=== PATIENT | female | born 1950 | race Caucasian/White ===

== ENCOUNTER 2018-08-15 16:32 | Emergency (ER) | payer MEDICAID, MEDICARE ==
[2018-08-15 17:25] LABS: BILIRUBIN,URINE NEGATIVE (NEGATIVE); GLUCOSE, URINE (UA) NEGATIVE (NEGATIVE); KETONES,URINE (UA) TRACE mg/dL (NEGATIVE); LEUKOCYTE ESTERASE, URINE LARGE (NEGATIVE); NITRITE,URINE POSITIVE (NEGATIVE); OCCULT BLOOD,URINE MODERATE (NEGATIVE); PH,URINE 6.5 PH (5.0-7.5); PROTEIN,URINE 100 mg/dL (NEGATIVE); UROBILINOGEN,URINE 0.2 (NORMAL) E.U./dL (NORMAL)
[2018-08-15 17:46] LABS: BACTERIA,URINE Few /HPF (None Seen); CLARITY,URINE SL. CLOUDY (CLEAR); RBC,URINE 0-5 /HPF (0-5); SQUAMOUS EPITHELIAL CELL,UR RARE Squamous (<= Few)
[2018-08-15] MEDS ORDERED: cefTRIAXone 1 GM VIAL IVP STA (20:18)
[2018-08-15] MEDS ORDERED: SODIUM CHLORIDE 0.9% 1,000 ML IV ONE (20:18)
[2018-08-15] MEDS ORDERED: FLUCONAZOLE 100 MG TABLET PO STA (20:19)
--- NOTE | 2018-08-15 20:22 | ED Physician Documentation ---
History of Present Illness - Stated complaint Stated Complaint: FEM - Chief complaint Chief Complaint: UTI - History obtained from History obtained from: Patient - History of Present Illness Timing: How many weeks ago (several) Pain level max: 4 Pain level now: 3 Improved by: nothing Worsened by: nothing - Additonal information Additional information: Patient is a 68-year-old female who presents to the emergency department complaining of generalized feelings of unwell the last few days. Feels tired and weak. States for the last several weeks has had a rash to the outer aspect of her thighs and genitalia. States that this is itchy. Had used nystatin cream in the past but ran out. She also feels like she has a UTI. States she has felt feverish, but no measured fever. Has had nausea but no vomiting. No diarrhea. No constipation. No back pain. Review of Systems Nose: denies: Rhinorrhea / runny nose, Congestion Cardiac: denies: Chest pain / pressure Respiratory: denies: Cough GI: reports: Nausea. denies: Abdominal Pain, Vomiting, Diarrhea : reports: Dysuria, Frequency, Hesitancy. denies: Now EGA Skin: denies: Rash Musculoskeletal: denies: Neck pain, Back pain PD PAST MEDICAL HISTORY - Past Medical History Past Medical History: Yes Cardiovascular: None Respiratory: Other Neuro: None Endocrine/Autoimmune: None GI: GERD, Colon polyps : Kidney stones HEENT: Other Psych: Depression, Anxiety Musculoskeletal: Osteoarthritis Derm: None - Past Surgical History General: Colonoscopy, EGD Ortho: Spine surgery - Present Medications Home Medications: Ambulatory Orders Medication Instructions Recorded Confirmed Omeprazole 20 mg PO DAILY 05/27/15 05/30/15 Vitamin B Complex Vit C No.4 150 mg PO DAILY 05/27/15 05/30/15 [Super B Complex] raNITIdine [Zantac] 150 mg PO BID 05/27/15 05/30/15 Cephalexin [Keflex] 500 mg PO Q6H #28 capsule 08/15/18 FLUoxetine [PROzac] 10 mg PO DAILY 08/15/18 08/15/18 Fluconazole [Diflucan] 150 mg PO Q72H #3 tablet 08/15/18 Nystatin Cream [Mycostatin Cream] 1 applic TOP BID PRN #1 tube 08/15/18 - Allergies Allergies/Adverse Reactions: Allergies Allergy/AdvReac Type Severity Reaction Status Date / Time No Known Drug Allergies Allergy Verified 08/15/18 16:41 - Social History Does the pt smoke?: No Smoking Status: Never smoker Does the pt drink ETOH?: Yes Does the pt have substance abuse?: No - Immunizations Immunizations are current?: Yes - POLST Patient has POLST: No PD ED PE NORMAL - Vitals Vital signs reviewed: Yes - General General: Alert and oriented X 3, No acute distress, Well developed/nourished - HEENT HEENT: Moist mucous membranes - Neck Neck: Supple, no meningeal sign - Cardiac Cardiac: RRR, Strong equal pulses - Respiratory Respiratory: No respiratory distress, Clear bilaterally - Abdomen Abdomen: Soft, Non tender, Non distended - Female Female : Box Toe Cutter present [email or web address]), Other (diffuse erythematous broken down skin over inguinal folds and perineum. ) - Back Back: No CVA TTP, No spinal TTP - Derm Derm: Warm and dry - Neuro Neuro: Alert and oriented X 3 Results - Vitals Vitals: Vital Signs - 24 hr 08/15/18 08/15/18 08/15/18 16:39 20:00 21:33 Temperature 36 C L 37 C Heart Rate 97 86 81 Respiratory 20 20 16 Rate Blood Pressure 174/139 H 130/74 127/69 O2 Saturation 95 98 99 Oxygen O2 Source [With Activity] Room air O2 Source [Without Activity] Room air O2 Source Room air - Labs Labs: Laboratory Tests 08/15/18 17:15 Urine Color YELLOW Urine Clarity SL. CLOUDY Urine pH 6.5 Ur Specific [place] 1.020 Urine Protein 100 H Urine Glucose (UA) NEGATIVE Urine Ketones TRACE Urine Occult Blood MODERATE H Urine Nitrite POSITIVE H Urine Bilirubin NEGATIVE Urine Urobilinogen 0.2 (NORMAL) Ur Leukocyte Esterase LARGE H Urine RBC 0-5 Urine WBC >25 H Ur Squamous Epith Cells RARE Squamous Urine Bacteria Few Ur Microscopic Review INDICATED Urine Culture Comments INDICATED PD MEDICAL DECISION MAKING - ED course Complexity details: reviewed results, re-evaluated patient, considered differential, d/w patient ED course: Patient is a 68-year-old female who presents to the emergency department with a severe candidal infection of her perineal area. Will place on Diflucan 150 mg by mouth every 3 days. She also appears to have UTI. Was given Rocephin and will place on Keflex. Will also place her on topical nystatin. She is not septic. Feels better after IV fluids and is tolerating p.o. without difficulty. No fevers. Patient counseled regarding signs and symptoms for which I believe and urgent re-evaluation would be necessary. Patient with good understanding of and agreement to plan and is comfortable going home at this time This document was made in part using voice recognition software. While efforts are made to proofread this document, sound alike and grammatical errors may occur. - Sepsis Event Vital Signs: Vital Signs - 24 hr 08/15/18 08/15/18 08/15/18 16:39 20:00 21:33 Temperature 36 C L 37 C Heart Rate 97 86 81 Respiratory 20 20 16 Rate Blood Pressure 174/139 H 130/74 127/69 O2 Saturation 95 98 99 Oxygen O2 Source [With Activity] Room air O2 Source [Without Activity] Room air O2 Source Room air Departure - Departure Disposition: 01 Home, Self Care Clinical Impression: Candidiasis UTI (urinary tract infection) Qualifiers: Urinary tract infection type: acute cystitis Hematuria presence: without hematuria Qualified Code(s): N30.00 - Acute cystitis without hematuria Instructions: ED Candidiasis Cutaneous, ED UTI Cystitis Female Follow-Up: your,doctor in 1 week [Other] Prescriptions: Cephalexin [Keflex] 500 mg PO Q6H #28 capsule Fluconazole [Diflucan] 150 mg PO Q72H #3 tablet Nystatin Cream [Mycostatin Cream] 1 applic TOP BID PRN #1 tube PRN Reason: rash Comments: Take all antibiotics until gone. Return if you worsen. This should improve with the oral medications in addition to the cream. Follow-up with your doctor for further care. Discharge Date/Time: 08/15/18 21:38
[2018-08-15 21:34] VITALS: BP 127/69
== END 2018-08-15 21:38 | disposition home or self-care (01) ==
LOC: ED 16:32
DX: B37.89 Other sites of candidiasis (principal); N30.00 Acute cystitis without hematuria
CPT/HCPCS: 81001; 87077; 87086; 87181; 96361; 96374; 99283; A9270; 81003

== ENCOUNTER 2018-08-18 06:22 | Inpatient (IN) | payer MEDICAID, MEDICARE ==
[2018-08-18] MEDS ORDERED: SODIUM CHLORIDE 0.9% 1,000 ML IV STA (06:50)
[2018-08-18 07:04] LABS: BASOPHILS % (AUTO) 0.1 %; EOSINOPHILS # (AUTO) 0.1 10^3/uL (0.0-0.7); EOSINOPHILS % (AUTO) 0.5 %; HGB - HEMOGLOBIN 11.9 g/dL (12.0-16.0); LYMPHOCYTES % (AUTO) 9.2 %; MEAN CORPUSCULAR HEMOGLOBIN 25.7 pg (27.0-31.0); MEAN CORPUSCULAR HGB CONC 32.9 g/dL (32.0-36.0); MEAN CORPUSCULAR VOLUME 78.2 fL (81.0-99.0); MEAN PLATELET VOLUME 6.5 fL (7.9-10.8); MONOCYTES # (AUTO) 0.9 10^3/uL (0.0-1.0); MONOCYTES % (AUTO) 8.2 %; NEUTROPHILS # (AUTO) 8.6 10^3/uL (1.5-6.6); PLT - PLATELET COUNT 518 10^3/uL (130-450); RED BLOOD COUNT 4.64 10^6/uL (4.20-5.40); RED CELL DISTRIBUTION WIDTH 18.4 % (12.0-15.0); WHITE BLOOD COUNT 10.5 x10^3/uL (4.8-10.8)
[2018-08-18] MEDS ORDERED: SODIUM CHLORIDE 0.9% 1,200 ML IV ONE (07:09)
[2018-08-18] MEDS ORDERED: ERTAPENEM 1 GM in SODIUM CHLORIDE 0.9% MINIBAG 100 ML IV STA (07:10)
--- NOTE | 2018-08-18 07:20 | ED Physician Documentation ---
History of Present Illness - Stated complaint Stated Complaint: WEAKNESS - Chief complaint Chief Complaint: Neuro - Additonal information Additional information: hx from pt and EMR 68 f fairly healthy takes H2B PPI SSRI seen 2 days ago for UTI and yeast dermatitis and weakness SBP was 179 txed with keflex and topical antifungal has worsened extreme weakness leg gave out and she fell (s injury) needed lift assist to get out of car upon arrival to ER SBP 90 on arrival denies fever chills no [place] one epsiode of diarrhea upon arrival in ED - no blood and [place] CP abd or back pain Review of Systems Constitutional: reports: Fatigue. denies: Fever, Chills Cardiac: denies: Chest pain / pressure Respiratory: denies: Dyspnea, Cough GI: reports: Diarrhea. denies: Abdominal Pain, Nausea, Vomiting, Bloody / black stool : reports: Dysuria Skin: reports: Rash Musculoskeletal: denies: Neck pain, Back pain Neurologic: reports: Generalized weakness. denies: Head injury Endocrine: denies: Easy bruising / bleeding Immunocompromised: denies: Immunocompromised PD PAST MEDICAL HISTORY - Past Medical History Past Medical History: Yes Cardiovascular: None Respiratory: Other Neuro: None Endocrine/Autoimmune: None GI: GERD, Colon polyps : Kidney stones HEENT: Other Psych: Depression, Anxiety Musculoskeletal: Osteoarthritis Derm: None - Past Surgical History Past Surgical History: Yes General: Colonoscopy, EGD Ortho: Spine surgery - Present Medications Home Medications: Ambulatory Orders Medication Instructions Recorded Confirmed Omeprazole 20 mg PO DAILY 05/27/15 05/30/15 Vitamin B Complex Vit C No.4 150 mg PO DAILY 05/27/15 05/30/15 [Super B Complex] raNITIdine [Zantac] 150 mg PO BID 05/27/15 05/30/15 Cephalexin [Keflex] 500 mg PO Q6H #28 capsule 08/15/18 FLUoxetine [PROzac] 10 mg PO DAILY 08/15/18 08/15/18 Fluconazole [Diflucan] 150 mg PO Q72H #3 tablet 08/15/18 Nystatin Cream [Mycostatin Cream] 1 applic TOP BID PRN #1 tube 08/15/18 - Allergies Allergies/Adverse Reactions: Allergies Allergy/AdvReac Type Severity Reaction Status Date / Time No Known Drug Allergies Allergy Verified 08/15/18 16:41 - Social History Does the pt smoke?: No Smoking Status: Never smoker Does the pt drink ETOH?: Yes Does the pt have substance abuse?: No - Immunizations Immunizations are current?: Yes - POLST Patient has POLST: No PD ED PE NORMAL - Vitals Vital signs reviewed: Yes - General General: Alert and oriented X 3 - HEENT HEENT: PERRL - Neck Neck: Supple, no meningeal sign - Cardiac Cardiac: RRR - Respiratory Respiratory: No respiratory distress - Abdomen Abdomen: Soft, Non tender - Derm Derm: Other (severe beefy erytehmatous rash with sattelitle lesions c/w yeast derm to labia and lower abd, flafy skin c/w tinea to feet) - Extremities Extremities: No edema - 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 Results - Vitals Vitals: Vital Signs - 24 hr 08/18/18 06:25 Temperature 36.6 C Heart Rate 96 Respiratory 17 Rate Blood Pressure 90/65 O2 Saturation 100 Oxygen O2 Source [With Activity] Room air O2 Source [Without Activity] Room air O2 Source Room air - Labs Labs: Laboratory Tests 08/18/18 08/18/18 08/18/18 06:57 06:57 06:57 WBC 10.5 RBC 4.64 Hgb 11.9 L Hct 36.3 L MCV 78.2 L MCH 25.7 L MCHC 32.9 RDW 18.4 H Plt Count 518 H MPV 6.5 L Neut # (Auto) 8.6 H Lymph # (Auto) 1.0 L [place] # (Auto) 0.9 Eos # (Auto) 0.1 Baso # (Auto) 0.0 Absolute Nucleated RBC 0.01 Nucleated RBC % 0.1 Sodium 132 L Potassium 1.7 L* Chloride 104 Carbon Dioxide 17 L Anion Gap 11.0 BUN 23 H Creatinine 1.5 H Estimated GFR (MDRD) 35 L Glucose 136 H Lactic Acid 1.4 Calcium 10.5 H Total Bilirubin 0.6 AST 20 ALT 23 Alkaline Phosphatase 74 Total Protein 6.6 L Albumin 3.1 L Globulin 3.5 Albumin/Globulin Ratio 0.9 L Lipase 136 H PD MEDICAL DECISION MAKING - ED course ED course: checked urine cx - klebsiella - should be sens to keflex prescribed but pt is sig worse, BP was 179 ast visit and 90 this vist, weak and falling, lives alone initiated sepsis tx - 30 cc/kg NS and invanv based on sensitivities will admit - Sepsis Event Vital Signs: Vital Signs - 24 hr 08/18/18 06:25 Temperature 36.6 C Heart Rate 96 Respiratory 17 Rate Blood Pressure 90/65 O2 Saturation 100 Oxygen O2 Source [With Activity] Room air O2 Source [Without Activity] Room air O2 Source Room air Departure - Departure Disposition: 67 [facility] DC/Xfer Clinical Impression: Hypokalemia, Renal insufficiency, Hypercalcemia Sepsis Qualifiers: Sepsis type: sepsis due to unspecified organism Qualified Code(s): A41.9 - Sepsis, unspecified organism UTI (urinary tract infection) Qualifiers: Urinary tract infection type: site unspecified Hematuria presence: without hematuria Qualified Code(s): N39.0 - Urinary tract infection, site not specified Hypotension Qualifiers: Hypotension type: unspecified hypotension type Qualified Code(s): I95.9 - Hypotension, unspecified Fall Qualifiers: Encounter type: initial encounter Qualified Code(s): W19.XXXA - Unspecified fall, initial encounter
[2018-08-18 07:24] LABS: ALBUMIN 3.1 g/dL (3.2-5.5); ALBUMIN/GLOBULIN RATIO 0.9 (1.0-2.2); BILIRUBIN,TOTAL 0.6 mg/dL (0.2-1.0); CALCIUM 10.5 mg/dL (8.5-10.3); CREATININE 1.5 mg/dL (0.4-1.0); TOTAL PROTEIN 6.6 g/dL (6.7-8.2)
[2018-08-18] MEDS ORDERED: POTASSIUM CHLOR 10 MEQ/100 ML 10 MEQ/100 ML BAG IV STA (07:25)
[2018-08-18] MEDS ORDERED: POTASSIUM CHLORIDE 20 MEQ TABLET PO STA (07:25)
[2018-08-18] MEDS ORDERED: CLOTRIMAZOLE 1% CREAM 15 GM TUBE TOP STA (07:29)
[2018-08-18 08:01] LABS: BILIRUBIN,URINE NEGATIVE (NEGATIVE); GLUCOSE, URINE (UA) NEGATIVE (NEGATIVE); KETONES,URINE (UA) NEGATIVE (NEGATIVE); LEUKOCYTE ESTERASE, URINE NEGATIVE (NEGATIVE); NITRITE,URINE NEGATIVE (NEGATIVE); OCCULT BLOOD,URINE SMALL (NEGATIVE); PH,URINE 6.5 PH (5.0-7.5); PROTEIN,URINE 30 mg/dL (NEGATIVE); UROBILINOGEN,URINE 0.2 (NORMAL) E.U./dL (NORMAL)
[2018-08-18 08:13] LABS: CLARITY,URINE CLEAR (CLEAR)
[2018-08-18 08:15] LABS: BACTERIA,URINE Rare /HPF (None Seen); RBC,URINE 0-5 /HPF (0-5); SQUAMOUS EPITHELIAL CELL,UR NONE SEEN (<= Few); WBC CLUMPS,URINE PRESENT
[2018-08-18 09:50] LABS: INR 1.2 (0.8-1.2); PT - PROTHROMBIN TIME 13.8 secs (9.9-12.6)
[2018-08-18] MEDS ORDERED: FLUoxetine 10 MG CAPSULE PO SCH (10:00)
[2018-08-18 10:24] LABS: TROPONIN I < 0.04 ng/mL (<0.49)
[2018-08-18 10:26] LABS: CREATINE KINASE MB 6.8 ng/mL (0.6-6.3)
[2018-08-18] MEDS ORDERED: SODIUM CHLORIDE FLUSH 0.9% 10 ML SYRINGE ONE (11:39)
[2018-08-18] MEDS: NS W/20 MEQ KCL 1,000 ML IV SCH ×3 (11:43→21:44)
[2018-08-18] MEDS: PANTOPRAZOLE 40 MG TABLET PO SCH (11:59)
[2018-08-18] MEDS: NYSTATIN POWDER 15 GM TOP SCH ×2 (12:00→20:49)
[2018-08-18] MEDS: POTASSIUM CHLOR 10 MEQ/100 ML 10 MEQ/100 ML BAG IV SCH ×3 (12:28→14:41)
[2018-08-18] MEDS: SODIUM CHLORIDE FLUSH 0.9% 10 ML SYRINGE IVP SCH (16:49)
[2018-08-18] MEDS: POTASSIUM CHLORIDE 20 MEQ TABLET PO SCH ×3 (17:13→22:56)
[2018-08-18] MEDS: LOPERAMIDE 2 MG CAPSULE PO PRN (18:46)
[2018-08-18] MEDS: SACCHAROMYCES BOULARDII 250 MG CAPSULE PO SCH (20:31)
[2018-08-18] MEDS: FLUoxetine 10 MG CAPSULE PO SCH (20:31)
--- NOTE | 2018-08-19 00:10 | HISTORY & PHYSICAL EXAMINATION ---
DATE OF SERVICE: 08/18/2018 Physician: Ivone Barron MD HISTORY OF PRESENT ILLNESS: This is a 68-year-old white female with a history of osteoarthritis, GERD, depression and anxiety, history of kidney stones, history of colonic polyps. Approximately 10 days ago, she developed redness and itching of her groin area and tried just home medications for this. Two days ago, she developed dysuria and came to the emergency room for complaints of dysuria and rash. She had urine cultures done. The urinalysis showed bacteriuria, and she was sent home with p.o. antibiotics. Over the following 2 days, she felt no better, was getting progressively weaker. She developed diarrhea. She was brought into the emergency room and needed help to even rise out of the car. In the emergency room, she was found to have a blood pressure of 88 systolic, had diarrhea in the ER. There was also possibly a fall at home. She is being admitted for hypotension and a klebsiella urinary tract infection. PAST MEDICAL HISTORY 1. GERD. 2. Colonic polyps. 3. Anxiety and depression. 4. Osteoarthritis. ALLERGIES: NONE. MEDICATIONS 1. Keflex 500 mg q.i.d., which she has taken for 2 days. 2. Diflucan 150 mg every 3 days, which she has taken once. 3. Vitamin B complex daily. 4. Zantac 150 b.i.d. 5. Omeprazole 20 mg daily. 6. Mycostatin topical cream b.i.d. 7. Prozac 60 mg daily. FAMILY HISTORY: No inherited diseases. SOCIAL HISTORY: The patient is a nonsmoker who never smoked, drinks very rare alcohol, denies any illicit drug use. REVIEW OF SYSTEMS: There has been no fever. Her appetite has been fair. There has been no nausea or vomiting. The diarrhea only started today. She denies any past cardiac or pulmonary history. A comprehensive review of systems was performed, and the pertinent positives are above. PHYSICAL EXAMINATION GENERAL: White female who appears older than her age. VITAL SIGNS: Blood pressure 110/60, heart rate 84 in sinus rhythm, afebrile, room air saturation 100%. HEENT: Reveals dry oral mucosa, poor dentition. Her upper jaw is edentulous. NECK: No JVD in a supine position. CHEST: Clear at the anterior bases. HEART: sounds are normal. No murmur. ABDOMEN: Soft, normal bowel sounds, nontender. EXTREMITIES: No clubbing, cyanosis, edema. The upper thighs, groin and external genitalia are red, warm and the demarcation line is sharp. NEUROLOGIC: Grossly intact. LABORATORY DATA: Sodium 132, potassium 1.7, BUN 23, creatinine 1.5. Lactic acid 1.4. Normal liver tests. BNP 66. Albumin 3.1. Lipase 136. INR normal. White blood count 10.5 with a left shift, hemoglobin 11.9, with a low MCV of 78, platelet count 518. IMAGING: No chest x-rays done. No imaging was done. ELECTROCARDIOGRAM: Normal sinus rhythm with diffusely inverted T waves. There is no old EKG for comparison. IMPRESSION/DIAGNOSES 1. Hypotension, which is very likely from her infection and diarrhea. 2. Hypokalemia, which is also likely from her diarrhea. 3. Acute kidney injury, which is likely related to dehydration from the infection 4. Klebsiella urinary tract infection. The bacteria has been identified in the urine culture, and sensitivities are available. 5. Barbara of the genitals. 6. Diarrhea. 7. Elevated lipase. This may be a phase reactant, since she has no elevation of LFTs or abdominal pain. 8. Anemia with low MCV. 9. Abnormal EKG without a cardiac history, possibly related to her severe hypokalemia. PLAN 1. Admit the patient to the ICU, on telemetry as dysrhythmias are very likely with such severe hypokalemia. 2. Begin crystalloid fluid replacement normal saline plus potassium. Also, give potassium iv riders and p.o. potassium to correct the severe hypokalemia. Monitor the serum potassium level every 6-12 hours. 3. Follow her electrolytes, BUN and creatinine daily. 4. Obtain blood cultures to rule out bacteremia. Begin IV antibiotics. Ceftriaxone will be started for its good sensitivity to the Klebsiella species and low risk of renal toxicity. 5. Begin nystatin powder for the skin candidal appearance. Obtain wound culture of the groin area. Obtain a [facility] wound consult for further advice on care. 6. Obtain C. difficile test to check the diarrhea, since she has been on antibiotics for 2 or 3 days. If negative, start Imodium. 7. Follow her liver function tests because of the elevated lipase. Follow CMP daily. 8. Follow her CBC daily regarding the white count that was not elevated but also regarding her anemia. 9. Check B12 and folate levels as well as iron studies because of the low MCV. CODE STATUS: FULL CODE. This was discussed and confirmed with the patient in detail. DEEP VENOUS THROMBOSIS PROPHYLAXIS: SCDs. ATTESTATION: The patient is expected to be discharged with transfer to another facility within 96 hours: Yes. TD: 08/18/2018 19:14 [email or web address]
[2018-08-19] MEDS: NS W/20 MEQ KCL 1,000 ML IV SCH ×3 (00:45→07:55)
[2018-08-19] MEDS: LOPERAMIDE 2 MG CAPSULE PO PRN ×2 (00:46→07:55)
[2018-08-19] MEDS: SODIUM CHLORIDE FLUSH 0.9% 10 ML SYRINGE IVP SCH ×3 (00:55→17:05)
[2018-08-19] MEDS: ZINC OXIDE 20% OINT 28.35 GM TUBE TOP PRN ×2 (05:01→08:26)
[2018-08-19 05:41] LABS: BASOPHILS % (AUTO) 0.3 %; EOSINOPHILS # (AUTO) 0.1 10^3/uL (0.0-0.7); HGB - HEMOGLOBIN 9.6 g/dL (12.0-16.0); LYMPHOCYTES # (AUTO) 1.1 10^3/uL (1.5-3.5); LYMPHOCYTES % (AUTO) 10.4 %; MEAN CORPUSCULAR HEMOGLOBIN 26.4 pg (27.0-31.0); MEAN CORPUSCULAR HGB CONC 33.5 g/dL (32.0-36.0); MEAN CORPUSCULAR VOLUME 78.8 fL (81.0-99.0); MEAN PLATELET VOLUME 6.8 fL (7.9-10.8); MONOCYTES # (AUTO) 0.9 10^3/uL (0.0-1.0); MONOCYTES % (AUTO) 8.4 %; NEUTROPHILS # (AUTO) 8.7 10^3/uL (1.5-6.6); NEUTROPHILS % (AUTO) 79.9 %; PLT - PLATELET COUNT 417 10^3/uL (130-450); RED BLOOD COUNT 3.64 10^6/uL (4.20-5.40); RED CELL DISTRIBUTION WIDTH 18.3 % (12.0-15.0); WHITE BLOOD COUNT 10.8 x10^3/uL (4.8-10.8)
[2018-08-19 05:54] LABS: CALCIUM 8.8 mg/dL (8.5-10.3); CREATININE 1.1 mg/dL (0.4-1.0); PHOSPHORUS 1.5 mg/dL (2.5-4.6)
[2018-08-19] MEDS: PANTOPRAZOLE 40 MG TABLET PO SCH (06:35)
[2018-08-19] MEDS: cefTRIAXone 1 GM in SODIUM CHLORIDE 0.9% MINIBAG 100 ML IV SCH ×2 (06:35→09:00)
[2018-08-19] MEDS ORDERED: DIPHENOX/ATROPINE 2.5/0.025 MG TABLET PO PRN ×2 (06:51→12:22)
[2018-08-19] MEDS: SACCHAROMYCES BOULARDII 250 MG CAPSULE PO SCH ×2 (07:55→17:05)
[2018-08-19] MEDS ORDERED: POTASSIUM PHOSPHATE 21 MMOL in SODIUM CHLORIDE 0.9% 250 ML IV ONE (08:00)
[2018-08-19] MEDS: ACETAMINOPHEN 325 MG TABLET PO PRN (11:03)
[2018-08-19] MEDS: NYSTATIN POWDER 15 GM TOP SCH ×2 (11:26→21:08)
[2018-08-19] MEDS: MULTIVITAMIN W/MINERALS TABLET PO SCH (12:18)
--- NOTE | 2018-08-19 13:56 | PROVIDER PROGRESS NOTE ---
Subjective - Prog Note Date Prog Note Date: 08/19/18 Prog Note Time: 13:53 - Subjective Pt reports feeling: Improved Subjective: She feels better than when she came in. But she still so weak and needs a lot of help just to sit up to transfer and stand. She is homeless and is been living out of her car for a few months now. She drove from the [facility] in [facility] to here 3 weeks ago to visit friends. She has not been doing well since she got here and has had increasing urinary urgency frequency. Incontinence of urine. Lack of access to getting a good bath and now subsequent virulent candidal infection of the labia, vagina, and upper thigh regions where they come together. She has a little dog. So she cannot go to a retirement here. She is usually ambulatory. Usually able to drive the car, get out of the car and walk. Right now she is so weak she cannot do that. Friends are taking care of her little dog. Current Medications - Current Medications Current Medications: Active Medications Acetaminophen (Tylenol) 650 mg PO Q4HR PRN PRN Reason: Pain or Fever > 38C (100.4F) Last Admin: 08/19/18 11:03 Dose: 650 mg Diphenoxylate HCl/Atropine (Lomotil) 1 tab PO Q2H PRN PRN Reason: Diarrhea Fluoxetine HCl (Prozac) 60 mg PO 2100 [facility] Last Admin: 08/18/18 20:31 Dose: 60 mg Potassium Chloride/Sodium Chloride (Normal Saline 0.9% W/20 Meq Kcl) 1,000 mls @ 200 mls/hr IV .Q5H [facility] Last Infusion: 08/19/18 13:00 Dose: Infused Ceftriaxone Sodium 1 gm/ (Sodium Chloride) 100 mls @ 200 mls/hr IV DAILY [facility] Last Infusion: 08/19/18 09:30 Dose: Infused Loperamide HCl (Imodium) 2 mg PO QID PRN PRN Reason: Diarrhea Last Admin: 08/19/18 07:55 Dose: 2 mg Multi-Ingredient Ointment (Zinc Oxide) 1 applic TOP PRN PRN PRN Reason: Skin Care Last Admin: 08/19/18 08:26 Dose: 1 applic Multivitamins/Minerals (Theragran M) 1 tab PO DAILYWM [facility] Last Admin: 08/19/18 12:18 Dose: 1 tab Nystatin (Nystop) 1 applic TOP BID [facility] Last Admin: 08/19/18 11:26 Dose: 1 applic Pantoprazole Sodium (Protonix) 40 mg PO QDAC [facility] Last Admin: 08/19/18 06:35 Dose: 40 mg Vitamin B Complex 1 each PO DAILY [facility] Last Admin: 08/19/18 10:46 Dose: Not Given Saccharomyces Boulardii (Florastor) 250 mg PO BIDWM [facility] Last Admin: 08/19/18 07:55 Dose: 250 mg Sodium Chloride (Normal Saline Flush 0.9%) 10 ml IVP 0100,0900,1700 [facility] Last Admin: 08/19/18 10:44 Dose: Not Given Sodium Chloride (Normal Saline Flush 0.9%) 10 ml IVP PRN PRN PRN Reason: NEEDED PER PROVIDER ORDERS Omeprazole 20 mg PO QDAC 05/27/15 raNITIdine [Zantac] 150 mg PO BID 05/27/15 FLUoxetine [PROzac] 60 mg PO DAILY 08/15/18 Cephalexin [Keflex] 500 mg PO [id number] 08/18/18 Fluconazole [Diflucan] 150 mg PO Q72HX3 08/18/18 Vitamin B Complex 1 tab PO DAILY 08/18/18 Objective - Vital Signs/Intake & Output Reviewed Vital Signs: Yes Vital Signs: Vital Signs x48h Temp Pulse Resp BP Pulse Ox 08/19/18 12:00 84 26 H 118/64 100 08/19/18 11:00 90 24 111/61 100 08/19/18 10:00 36.7 C 94 22 115/67 100 08/19/18 09:00 88 21 113/65 100 08/19/18 08:00 92 22 123/71 100 08/19/18 07:00 78 18 96/54 L 100 08/19/18 06:00 80 18 106/57 L 100 Intake & Output: Intake & Output 08/16/18 08/17/18 08/18/18 08/19/18 23:59 23:59 23:59 23:59 Intake Total 5536.667 4730.000 Output Total 502 Balance 5536.667 4228.000 - Objective General Appearance: positive: No acute distress, Alert Eyes Bilateral: positive: PERRL, EOMI ENT: positive: Pharynx nml Neck: positive: No JVD. negative: Stiff neck, Carotid bruit Respiratory: positive: Chest non-tender. negative: Wheezes, Rales, Rhonchi Cardiovascular: positive: Regular rate & rhythm. negative: Gallop/S4, Friction rub Abdomen: positive: Non-tender, No organomegaly, Nml bowel sounds, No distention Skin: positive: Other (The skin of the addendum, going down into the labia, vagina, perineum, rectum, buttocks, and upper thigh region are all red, warm, from Barbara. A white cottage cheese exited is present in the vagina introitus.) Extremities: positive: Full ROM, No pedal edema Neurologic/Psychiatric: positive: Oriented x3, CN's nml (2-12), Motor nml, Weakness - Lab Results Fish Bones: 08/19/18 04:54 08/19/18 04:54 Other Labs: Lab Results x24hrs 08/19/18 08/19/18 08/19/18 Range/Units 04:54 04:54 00:19 WBC 10.8 (4.8-10.8) x10^3/uL RBC 3.64 L (4.20-5.40) 10^6/uL Hgb 9.6 L (12.0-16.0) g/dL Hct 28.7 L (37.0-47.0) % MCV 78.8 L (81.0-99.0) fL MCH 26.4 L (27.0-31.0) pg MCHC 33.5 (32.0-36.0) g/dL RDW 18.3 H (12.0-15.0) % Plt Count 417 (130-450) 10^3/uL MPV 6.8 L (7.9-10.8) fL Neut # (Auto) 8.7 H (1.5-6.6) 10^3/uL Lymph # (Auto) 1.1 L (1.5-3.5) 10^3/uL [place] # (Auto) 0.9 (0.0-1.0) 10^3/uL Eos # (Auto) 0.1 (0.0-0.7) 10^3/uL Baso # (Auto) 0.0 (0.0-0.1) 10^3/uL Absolute Nucleated RBC 0.01 x10^3/uL Nucleated RBC % 0.0 /100WBC Sodium 141 (135-145) mmol/L Potassium 4.1 3.3 L (3.5-5.0) mmol/L Chloride 122 H* (101-111) mmol/L Carbon Dioxide 13 L (21-32) mmol/L Anion Gap 6.0 (6-13) BUN 13 (6-20) mg/dL Creatinine 1.1 H (0.4-1.0) mg/dL Estimated GFR (MDRD) 50 L (>89) Glucose 99 (70-100) mg/dL Calcium 8.8 (8.5-10.3) mg/dL Phosphorus 1.5 L (2.5-4.6) mg/dL Magnesium 2.0 (1.7-2.8) mg/dL 08/18/18 08/18/18 Range/Units 21:05 16:30 WBC (4.8-10.8) x10^3/uL RBC (4.20-5.40) 10^6/uL Hgb (12.0-16.0) g/dL Hct (37.0-47.0) % MCV (81.0-99.0) fL MCH (27.0-31.0) pg MCHC (32.0-36.0) g/dL RDW (12.0-15.0) % Plt Count (130-450) 10^3/uL MPV (7.9-10.8) fL Neut # (Auto) (1.5-6.6) 10^3/uL Lymph # (Auto) (1.5-3.5) 10^3/uL [place] # (Auto) (0.0-1.0) 10^3/uL Eos # (Auto) (0.0-0.7) 10^3/uL Baso # (Auto) (0.0-0.1) 10^3/uL Absolute Nucleated RBC x10^3/uL Nucleated RBC % /100WBC Sodium (135-145) mmol/L Potassium 2.8 L 2.4 L* (3.5-5.0) mmol/L Chloride (101-111) mmol/L Carbon Dioxide (21-32) mmol/L Anion Gap (6-13) BUN (6-20) mg/dL Creatinine (0.4-1.0) mg/dL Estimated GFR (MDRD) (>89) Glucose (70-100) mg/dL Calcium (8.5-10.3) mg/dL Phosphorus (2.5-4.6) mg/dL Magnesium (1.7-2.8) mg/dL ABX Reporting Has patient been on IV antibiotics over the past 48 hours?: Yes Assessment/Plan - Problem List (1) Hypotension Impression: This is an unfortunate female who lives in her car. She developed a candidal rash due to lack of bathing facilities. Then developed a UTI. Was seen in the emergency room and had a horrendous Barbara of the lower abdominal wall, intertriginous folds, labia and vagina. She was treated as a UTI and candidal rash and sent home or back to her car. She then developed diarrhea and is even sicker than before. She is weak, cannot move to sit to transfer because of weakness. She is found to be hypotensive. Dehydrated. Hypokalemic. She was placed in ICU because of the severe hypokalemia. Plan: Continue IV fluids Transfer to [facility] Hypotension has resolved. She was down to 96/54 systolic is now up to 118/64. Qualifiers: Hypotension type: unspecified hypotension type Qualified Code(s): I95.9 - Hypotension, unspecified (2) Hypokalemia Impression: Resolved. She started at 1.6 and 1 several potassium rider she is now 4.1 this morning. (3) Dehydration with hyponatremia Impression: Causing acute kidney injury as well. Creatinine started at 1.5. She is now 1.1 today. Plan: continue hydration until electrolytes have normalized. (4) UTI due to Klebsiella species Impression: This urinalysis is from August 15. That was her visit to the ED. Resistant to ampicillin, nitrofurantoin, and Pipracil and. Sensitive to all others. Blood cultures from August 18 are negative Plan: Continue ceftriaxone. Day #2. (5) Diarrhea due to drug Impression: Most likely from antibiotics. She is C. difficile negative. She continues to have a copious, copious amount of stool that is liquid, and she cannot get to the bedside commode in time. She is currently on Imodium 4 times daily as needed. 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 Some intertriginous groin fold. But then it extends down into the skin of her thigh with 6 cm of thigh skin involved as they abut each other. All of the superficial skin has been removed and it is just raw. Plan:Nystatin topical continues. Hopefully a shower today (7) Microcytic hypochromic anemia Impression: Check anemia panel (8) Abnormal EKG Impression: Now that her potassium is normal, recheck EKG to see what baseline looks like and to make sure her T wave changes have resolved (9) Poor hygiene Impression: She already got a sponge bath this morning. Now that I have transferred her to [facility], and her potassium is normal as blood pressure is, I strongly encouraged her to take a shower with the help of the aid. We really need to focus on getting that skin between her thighs clean, dry, with adequate topical therapy. (10) Hyperchloremia Impression: most likely due to diarrhea. Her K and Na are now nml. Stop IVF. She has adequate oral intake.
[2018-08-19 14:44] LABS: MEAN RETIC VALUE 111.9; RED BLOOD COUNT 3.84 10^6/uL (4.20-5.40)
[2018-08-19 15:05] LABS: % IRON SATURATION 11 % (20-50); IRON 21 ug/dL (28-170); TOTAL IRON BINDING CAPACITY 199 ug/dL (250-450); TRANSFERRIN 142 mg/dL (192-382)
[2018-08-19] MEDS: FLUoxetine 10 MG CAPSULE PO SCH (21:08)
[2018-08-20] MEDS: SODIUM CHLORIDE FLUSH 0.9% 10 ML SYRINGE IVP SCH ×3 (00:04→17:51)
[2018-08-20 05:48] LABS: BASOPHILS % (AUTO) 0.2 %; EOSINOPHILS # (AUTO) 0.3 10^3/uL (0.0-0.7); EOSINOPHILS % (AUTO) 2.4 %; HGB - HEMOGLOBIN 9.7 g/dL (12.0-16.0); LYMPHOCYTES # (AUTO) 1.4 10^3/uL (1.5-3.5); LYMPHOCYTES % (AUTO) 13.1 %; MEAN CORPUSCULAR HEMOGLOBIN 26.1 pg (27.0-31.0); MEAN CORPUSCULAR HGB CONC 32.5 g/dL (32.0-36.0); MEAN CORPUSCULAR VOLUME 80.2 fL (81.0-99.0); MEAN PLATELET VOLUME 6.8 fL (7.9-10.8); MONOCYTES # (AUTO) 0.7 10^3/uL (0.0-1.0); MONOCYTES % (AUTO) 6.4 %; NEUTROPHILS # (AUTO) 8.3 10^3/uL (1.5-6.6); NEUTROPHILS % (AUTO) 77.9 %; PLT - PLATELET COUNT 436 10^3/uL (130-450); RED BLOOD COUNT 3.71 10^6/uL (4.20-5.40); RED CELL DISTRIBUTION WIDTH 19.4 % (12.0-15.0); WHITE BLOOD COUNT 10.6 x10^3/uL (4.8-10.8)
[2018-08-20 05:55] LABS: CREATININE 1.1 mg/dL (0.4-1.0); MAGNESIUM 1.8 mg/dL (1.7-2.8); PHOSPHORUS 2.4 mg/dL (2.5-4.6)
[2018-08-20] MEDS: MULTIVITAMIN W/MINERALS TABLET PO SCH (08:24)
[2018-08-20] MEDS: cefTRIAXone 1 GM in SODIUM CHLORIDE 0.9% MINIBAG 100 ML IV SCH (08:24)
[2018-08-20] MEDS: SACCHAROMYCES BOULARDII 250 MG CAPSULE PO SCH ×2 (08:24→17:51)
[2018-08-20] MEDS: NYSTATIN POWDER 15 GM TOP SCH ×2 (08:24→21:43)
[2018-08-20] MEDS: SODIUM CHLORIDE FLUSH 0.9% 10 ML SYRINGE IVP PRN (08:24)
--- NOTE | 2018-08-20 08:44 | PROVIDER PROGRESS NOTE ---
Subjective - Prog Note Date Prog Note Date: 08/20/18 Prog Note Time: 08:43 - Subjective Pt reports feeling: Improved Subjective: She is less and less weak. Appetite is slowly coming back. But she still pretty wide-based and unsteady in her gait. Physical therapy feels that she is a fall risk and needs to improve her strength and mobility. She did have 1 semi-loose stool this morning but no further diarrhea. No emesis. No abdominal pain. Still has rawness and pain in her labia, perineum, and the skin over her thighs. Feels much better with the shower from yesterday. She denies chest pain, palpitations, shortness of breath. No abdominal pain. Current Medications - Current Medications Current Medications: Active Medications Acetaminophen (Tylenol) 650 mg PO Q4HR PRN PRN Reason: Pain or Fever > 38C (100.4F) Last Admin: 08/19/18 11:03 Dose: 650 mg Diphenoxylate HCl/Atropine (Lomotil) 1 tab PO Q2H PRN PRN Reason: Diarrhea Fluoxetine HCl (Prozac) 60 mg PO 2100 [facility] Last Admin: 08/19/18 21:08 Dose: 60 mg Ceftriaxone Sodium 1 gm/ (Sodium Chloride) 100 mls @ 200 mls/hr IV DAILY [facility] Last Admin: 08/20/18 08:24 Dose: 200 mls/hr Loperamide HCl (Imodium) 2 mg PO QID PRN PRN Reason: Diarrhea Last Admin: 08/19/18 07:55 Dose: 2 mg Multi-Ingredient Ointment (Zinc Oxide) 1 applic TOP PRN PRN PRN Reason: Skin Care Last Admin: 08/19/18 08:26 Dose: 1 applic Multivitamins/Minerals (Theragran M) 1 tab PO DAILYWM [facility] Last Admin: 08/20/18 08:24 Dose: 1 tab Nystatin (Nystop) 1 applic TOP BID [facility] Last Admin: 08/20/18 08:24 Dose: 1 applic Vitamin B Complex 1 each PO DAILY [facility] Last Admin: 08/20/18 08:25 Dose: Not Given Saccharomyces Boulardii (Florastor) 250 mg PO BIDWM [facility] Last Admin: 08/20/18 08:24 Dose: 250 mg Sodium Chloride (Normal Saline Flush 0.9%) 10 ml IVP 0100,0900,1700 [facility] Last Admin: 08/20/18 08:24 Dose: 10 ml Sodium Chloride (Normal Saline Flush 0.9%) 10 ml IVP PRN PRN PRN Reason: NEEDED PER PROVIDER ORDERS Last Admin: 08/20/18 08:24 Dose: 10 ml Omeprazole 20 mg PO QDAC 05/27/15 raNITIdine [Zantac] 150 mg PO BID 05/27/15 FLUoxetine [PROzac] 60 mg PO DAILY 08/15/18 Cephalexin [Keflex] 500 mg PO [id number] 08/18/18 Fluconazole [Diflucan] 150 mg PO Q72HX3 08/18/18 Vitamin B Complex 1 tab PO DAILY 08/18/18 Objective - Vital Signs/Intake & Output Reviewed Vital Signs: Yes Intake & Output: Intake & Output 08/17/18 08/18/18 08/19/18 08/20/18 23:59 23:59 23:59 23:59 Intake Total 5536.667 6112.000 Output Total 502 Balance 5536.667 5610.000 - Objective General Appearance: positive: No acute distress, Alert, Other (Pale, white female who looks her stated age, completely covered in bed with a blanket saying that she is just "really cold".) Eyes Bilateral: positive: PERRL, EOMI ENT: positive: Pharynx nml Neck: positive: No JVD. negative: Stiff neck, Carotid bruit Respiratory: positive: Chest non-tender. negative: Wheezes, Rales, Rhonchi Cardiovascular: positive: Regular rate & rhythm. negative: Systolic murmur, Gallop/S4, Friction rub Abdomen: positive: Non-tender, No organomegaly, Nml bowel sounds, No distention Skin: positive: Warm, Dry, Pallor Extremities: positive: Full ROM, No pedal edema Neurologic/Psychiatric: positive: Oriented x3, CN's nml (2-12), Motor nml, Weakness (Generalized weakness with a wide-based gait she tries to get her balance). negative: Facial droop, Slurred/abnml speech - Lab Results Fish Bones: 08/20/18 05:20 08/20/18 05:20 Other Labs: Lab Results x24hrs 08/20/18 08/20/18 08/19/18 Range/Units 05:20 05:20 14:39 WBC 10.6 (4.8-10.8) x10^3/uL RBC 3.71 L (4.20-5.40) 10^6/uL Hgb 9.7 L (12.0-16.0) g/dL Hct 29.8 L (37.0-47.0) % MCV 80.2 L (81.0-99.0) fL MCH 26.1 L (27.0-31.0) pg MCHC 32.5 (32.0-36.0) g/dL RDW 19.4 H (12.0-15.0) % Plt Count 436 (130-450) 10^3/uL MPV 6.8 L (7.9-10.8) fL Reticulocyte % (Auto) (0.5-2.3) % Neut # (Auto) 8.3 H (1.5-6.6) 10^3/uL Lymph # (Auto) 1.4 L (1.5-3.5) 10^3/uL [place] # (Auto) 0.7 (0.0-1.0) 10^3/uL Eos # (Auto) 0.3 (0.0-0.7) 10^3/uL Baso # (Auto) 0.0 (0.0-0.1) 10^3/uL Absolute Nucleated RBC 0.01 x10^3/uL Nucleated RBC % 0.1 /100WBC Absolute Retic (0.020-0.110) 10^6/uL Sodium 141 (135-145) mmol/L Potassium 4.0 (3.5-5.0) mmol/L Chloride 120 H* (101-111) mmol/L Carbon Dioxide 14 L (21-32) mmol/L Anion Gap 7.0 (6-13) BUN 10 (6-20) mg/dL Creatinine 1.1 H (0.4-1.0) mg/dL Estimated GFR (MDRD) 50 L (>89) Glucose 85 (70-100) mg/dL Calcium 9.0 (8.5-10.3) mg/dL Phosphorus 2.4 L (2.5-4.6) mg/dL Magnesium 1.8 (1.7-2.8) mg/dL Iron (28-170) ug/dL TIBC (250-450) ug/dL % Saturation (20-50) % Transferrin (192-382) mg/dL Ferritin 19.0 (11.0-306.8) ng/mL Lactate Dehydrogenase (91-225) IU/L Vitamin B12 1386 H (180-914) pg/mL 08/19/18 08/19/18 08/19/18 Range/Units 14:35 14:35 14:35 WBC (4.8-10.8) x10^3/uL RBC 3.84 L (4.20-5.40) 10^6/uL Hgb (12.0-16.0) g/dL Hct (37.0-47.0) % MCV (81.0-99.0) fL MCH (27.0-31.0) pg MCHC (32.0-36.0) g/dL RDW (12.0-15.0) % Plt Count (130-450) 10^3/uL MPV (7.9-10.8) fL Reticulocyte % (Auto) 3.09 H (0.5-2.3) % Neut # (Auto) (1.5-6.6) 10^3/uL Lymph # (Auto) (1.5-3.5) 10^3/uL [place] # (Auto) (0.0-1.0) 10^3/uL Eos # (Auto) (0.0-0.7) 10^3/uL Baso # (Auto) (0.0-0.1) 10^3/uL Absolute Nucleated RBC x10^3/uL Nucleated RBC % /100WBC Absolute Retic 0.119 H (0.020-0.110) 10^6/uL Sodium (135-145) mmol/L Potassium (3.5-5.0) mmol/L Chloride (101-111) mmol/L Carbon Dioxide (21-32) mmol/L Anion Gap (6-13) BUN (6-20) mg/dL Creatinine (0.4-1.0) mg/dL Estimated GFR (MDRD) (>89) Glucose (70-100) mg/dL Calcium (8.5-10.3) mg/dL Phosphorus (2.5-4.6) mg/dL Magnesium (1.7-2.8) mg/dL Iron 21 L (28-170) ug/dL TIBC 199 L (250-450) ug/dL % Saturation 11 L (20-50) % Transferrin 142 L (192-382) mg/dL Ferritin (11.0-306.8) ng/mL Lactate Dehydrogenase 126 (91-225) IU/L Vitamin B12 (180-914) pg/mL ABX Reporting Has patient been on IV antibiotics over the past 48 hours?: Yes Assessment/Plan - Problem List (1) Hypotension Impression: This is an unfortunate female who lives in her car. She developed a candidal rash due to lack of bathing facilities. Then developed a UTI. Was seen in the emergency room and had a horrendous Barbara of the lower abdominal wall, intertriginous folds, labia and vagina. She was treated as a UTI and candidal rash and sent home or back to her car. She then developed diarrhea and is even sicker than before. She is weak, cannot move to sit to transfer because of weakness. She is found to be hypotensive. Dehydrated. Hypokalemic. She was placed in ICU because of the severe hypokalemia. Plan: IVF stopped yesterday and BP ok Transferred to [facility] yesterday 08/19 Hypotension has resolved. Very weak and has been evaluated by PT yesterday: Pt. is a cooperative 68 y.o. F who presents w/poor mobilty, LE weakness and decreased balance; she will need continued PT while in hospital working on her strength and balance for functional activity; pt. may need f/u PT after hospital d/c at SNF to gain her independent status back. Recommned PT 1-2x/day while pt. in hospital. Plan is transfer to SNF most likely tomorrow if she continues to qualify. Qualifiers: Hypotension type: unspecified hypotension type Qualified Code(s): I95.9 - Hypotension, unspecified (2) Hypokalemia Impression: Resolved. She started at 1.6 and 1 several potassium rider she was 4.1 and today 4.0 (3) Dehydration with hyponatremia Impression: Causing acute kidney injury as well. Creatinine started at 1.5. She is now 1.1 today. Plan: monitor in am (4) UTI due to Klebsiella species Impression: This urinalysis is from August 15. That was her visit to the ED. Resistant to ampicillin, nitrofurantoin, and Pipracil and. Sensitive to all others. Blood cultures from August 18 are negative Plan: Continue ceftriaxone. Day #3. (5) Diarrhea due to drug Impression: Most likely from antibiotics. She is C. difficile negative. She continued to have a copious, copious amount of stool that is liquid, and she cannot get to the bedside commode in time. That was on 08/19. Today is better. She is currently on Imodium 8 times daily as needed. Plan: Increase Imodium to every 2 hours max 8 a day Questran powder 3 times daily did not need to be added. 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 Some intertriginous groin fold. But then it extends down into the skin of her thigh with 6 cm of thigh skin involved as they abut each other. All of the superficial skin has been removed and it i s just raw. Showered 08/19. Plan:Nystatin topical continues. Diflucan added today. (7) Iron deficiency anemia Impression: anemia panel Laboratory Tests 08/19/18 08/19/18 08/19/18 14:35 14:35 14:39 Iron 21 L TIBC 199 L % Saturation 11 L Transferrin 142 L Ferritin 19.0 Lactate Dehydrogenase 126 Vitamin B12 1386 H When she returns to outpatient status will need EGD and colonoscopy. She denies black stool, weight change. The diarrhea started w the abx for her UTI this last week. (8) Abnormal EKG Impression: Now that her potassium is normal, rechecked EKG to see what baseline looks like and to make sure her T wave changes have resolved. they did. (9) Poor hygiene Impression: Shower 08/19. (10) Hyperchloremia Impression: most likely due to diarrhea. Her K and Na are now nml. Stopped IVF. She has adequate oral intake. Qualifiers: Qualified Code(s): I95.9 - Hypotension, unspecified
[2018-08-20] MEDS: FLUCONAZOLE 100 MG TABLET PO SCH (09:26)
[2018-08-20] MEDS: FLUoxetine 10 MG CAPSULE PO SCH (21:42)
[2018-08-21] MEDS: SODIUM CHLORIDE FLUSH 0.9% 10 ML SYRINGE IVP SCH ×3 (00:36→16:43)
[2018-08-21 05:12] LABS: BASOPHILS # (AUTO) 0.1 10^3/uL (0.0-0.1); BASOPHILS % (AUTO) 0.5 %; EOSINOPHILS # (AUTO) 0.3 10^3/uL (0.0-0.7); EOSINOPHILS % (AUTO) 3.1 %; HGB - HEMOGLOBIN 8.6 g/dL (12.0-16.0); LYMPHOCYTES # (AUTO) 1.2 10^3/uL (1.5-3.5); LYMPHOCYTES % (AUTO) 11.9 %; MEAN CORPUSCULAR HEMOGLOBIN 26.7 pg (27.0-31.0); MEAN CORPUSCULAR HGB CONC 33.3 g/dL (32.0-36.0); MEAN CORPUSCULAR VOLUME 80.2 fL (81.0-99.0); MEAN PLATELET VOLUME 6.7 fL (7.9-10.8); MONOCYTES # (AUTO) 0.7 10^3/uL (0.0-1.0); MONOCYTES % (AUTO) 6.2 %; NEUTROPHILS # (AUTO) 8.2 10^3/uL (1.5-6.6); NEUTROPHILS % (AUTO) 78.3 %; PLT - PLATELET COUNT 409 10^3/uL (130-450); RED BLOOD COUNT 3.22 10^6/uL (4.20-5.40); RED CELL DISTRIBUTION WIDTH 18.7 % (12.0-15.0); WHITE BLOOD COUNT 10.5 x10^3/uL (4.8-10.8)
[2018-08-21 05:21] LABS: CALCIUM 8.7 mg/dL (8.5-10.3); CREATININE 0.9 mg/dL (0.4-1.0); MAGNESIUM 1.7 mg/dL (1.7-2.8)
[2018-08-21] MEDS: FLUCONAZOLE 100 MG TABLET PO SCH (08:28)
[2018-08-21] MEDS: SACCHAROMYCES BOULARDII 250 MG CAPSULE PO SCH ×2 (08:28→16:43)
[2018-08-21] MEDS: cefTRIAXone 1 GM in SODIUM CHLORIDE 0.9% MINIBAG 100 ML IV SCH (08:28)
[2018-08-21] MEDS: MULTIVITAMIN W/MINERALS TABLET PO SCH (08:28)
[2018-08-21] MEDS: NYSTATIN POWDER 15 GM TOP SCH ×2 (08:29→21:08)
[2018-08-21] MEDS: POLYETHYLENE GLYCOL 3350 17 GM PACKET PO SCH (08:29)
--- NOTE | 2018-08-21 15:57 | PROVIDER PROGRESS NOTE ---
Subjective - Prog Note Date Prog Note Date: 08/21/18 Prog Note Time: 15:59 - Subjective Pt reports feeling: Improved Subjective: She denies any cp, sob. No abd pain. Diarrhea gone. Eating 25%-75% of her food Current Medications - Current Medications Current Medications: Active Medications Acetaminophen (Tylenol) 650 mg PO Q4HR PRN PRN Reason: Pain or Fever > 38C (100.4F) Last Admin: 08/19/18 11:03 Dose: 650 mg Diphenoxylate HCl/Atropine (Lomotil) 1 tab PO Q2H PRN PRN Reason: Diarrhea Last Admin: 08/21/18 08:28 Dose: 1 tab Fluconazole (Diflucan) 100 mg PO DAILY [facility] Last Admin: 08/21/18 08:28 Dose: 100 mg Fluoxetine HCl (Prozac) 60 mg PO 2100 [facility] Last Admin: 08/20/18 21:42 Dose: 60 mg Ceftriaxone Sodium 1 gm/ (Sodium Chloride) 100 mls @ 200 mls/hr IV DAILY [facility] Last Infusion: 08/21/18 09:59 Dose: Infused Loperamide HCl (Imodium) 2 mg PO QID PRN PRN Reason: Diarrhea Last Admin: 08/19/18 07:55 Dose: 2 mg Multi-Ingredient Ointment (Zinc Oxide) 1 applic TOP PRN PRN PRN Reason: Skin Care Last Admin: 08/19/18 08:26 Dose: 1 applic Multivitamins/Minerals (Theragran M) 1 tab PO DAILYWM [facility] Last Admin: 08/21/18 08:28 Dose: 1 tab Nystatin (Nystop) 1 applic TOP BID [facility] Last Admin: 08/21/18 08:29 Dose: 1 applic Vitamin B Complex 1 each PO DAILY [facility] Last Admin: 08/21/18 08:29 Dose: Not Given Polyethylene Glycol (Miralax) 17 gm PO DAILY [facility] Last Admin: 08/21/18 08:29 Dose: Not Given Saccharomyces Boulardii (Florastor) 250 mg PO BIDWM [facility] Last Admin: 08/21/18 08:28 Dose: 250 mg Sodium Chloride (Normal Saline Flush 0.9%) 10 ml IVP 0100,0900,1700 [facility] Last Admin: 08/21/18 08:29 Dose: 10 ml Sodium Chloride (Normal Saline Flush 0.9%) 10 ml IVP PRN PRN PRN Reason: NEEDED PER PROVIDER ORDERS Last Admin: 08/20/18 08:24 Dose: 10 ml Omeprazole 20 mg PO QDAC 05/27/15 raNITIdine [Zantac] 150 mg PO BID 05/27/15 FLUoxetine [PROzac] 60 mg PO DAILY 08/15/18 Cephalexin [Keflex] 500 mg PO [id number] 08/18/18 Fluconazole [Diflucan] 150 mg PO Q72HX3 08/18/18 Vitamin B Complex 1 tab PO DAILY 08/18/18 Objective - Vital Signs/Intake & Output Reviewed Vital Signs: Yes Vital Signs: Vital Signs x48h Temp Pulse Resp BP Pulse Ox 08/21/18 14:00 37.0 C 86 20 107/62 93 Intake & Output: Intake & Output 08/18/18 08/19/18 08/20/18 08/21/18 23:59 23:59 23:59 23:59 Intake Total 5536.667 6112.000 1620 1000 Output Total 502 Balance 5536.667 5610.000 1620 1000 - Objective General Appearance: positive: No acute distress, Alert Eyes Bilateral: positive: PERRL, EOMI ENT: positive: Pharynx nml Neck: positive: No JVD. negative: Stiff neck, Carotid bruit Respiratory: positive: Chest non-tender. negative: Wheezes, Rales, Rhonchi Cardiovascular: positive: Regular rate & rhythm. negative: Tachycardia, Systolic murmur, Gallop/S4, Friction rub Abdomen: positive: Non-tender, No organomegaly, Nml bowel sounds, No distention. negative: Guarding, Rebound Skin: positive: Warm, Dry, Other (redness of pudendum resolved. labia less red. skin in upper thighs were meets inguinal folds, medially, pink, loss of skin layer. But no oozing, no cellulitis.) Extremities: positive: Full ROM, No pedal edema Neurologic/Psychiatric: positive: Oriented x3, CN's nml (2-12), Motor nml, W eakness - Lab Results Fish Bones: 08/21/18 04:40 08/21/18 04:40 Other Labs: Lab Results x24hrs 08/21/18 08/21/18 Range/Units 04:40 04:40 WBC 10.5 (4.8-10.8) x10^3/uL RBC 3.22 L (4.20-5.40) 10^6/uL Hgb 8.6 L (12.0-16.0) g/dL Hct 25.8 L (37.0-47.0) % MCV 80.2 L (81.0-99.0) fL MCH 26.7 L (27.0-31.0) pg MCHC 33.3 (32.0-36.0) g/dL RDW 18.7 H (12.0-15.0) % Plt Count 409 (130-450) 10^3/uL MPV 6.7 L (7.9-10.8) fL Neut # (Auto) 8.2 H (1.5-6.6) 10^3/uL Lymph # (Auto) 1.2 L (1.5-3.5) 10^3/uL [place] # (Auto) 0.7 (0.0-1.0) 10^3/uL Eos # (Auto) 0.3 (0.0-0.7) 10^3/uL Baso # (Auto) 0.1 (0.0-0.1) 10^3/uL Absolute Nucleated RBC 0.01 x10^3/uL Nucleated RBC % 0.1 /100WBC Sodium 138 (135-145) mmol/L Potassium 4.1 (3.5-5.0) mmol/L Chloride 117 H (101-111) mmol/L Carbon Dioxide 14 L (21-32) mmol/L Anion Gap 7.0 (6-13) BUN 9 (6-20) mg/dL Creatinine 0.9 (0.4-1.0) mg/dL Estimated GFR (MDRD) 62 L (>89) Glucose 83 (70-100) mg/dL Calcium 8.7 (8.5-10.3) mg/dL Phosphorus 3.0 (2.5-4.6) mg/dL Magnesium 1.7 (1.7-2.8) mg/dL ABX Reporting Has patient been on IV antibiotics over the past 48 hours?: Yes Assessment/Plan - Problem List (1) Hypotension Impression: RESOLVED. This is an unfortunate female who lives in her car. She developed a candidal rash due to lack of bathing facilities. Then developed a UTI. Was seen in the emergency room and had a horrendous Barbara of the lower abdominal wall, intertriginous folds, labia and vagina. She was treated as a UTI and candidal rash and sent home or back to her car. She then developed diarrhea and is even sicker than before. She is weak, cannot move to sit to transfer because of weakness. She is found to be hypotensive. Dehydrated. Hypokalemic. She was placed in ICU because of the severe hypokalemia. Plan: IVF stopped 08/19 and BP ok Transferred to [facility] yesterday 08/19 Hypotension has resolved. Very weak and has been evaluated by PT 08/19: Pt. is a cooperative 68 y.o. F who presents w/poor mobilty, LE weakness and decreased balance; she will need continued PT while in hospital working on her strength and balance for functional activity; pt. may need f/u PT after hospital d/c at SNF to gain her independent status back. Recommned PT 1-2x/day while pt. in hospital. 08/21:Pt. seen x total of 17 min. for functional activity: pt. performs Tinetti test for balance and walking; she demonstrates average risk for falling w/score of 23/28; she transfers OOB w/cga; she amb. using FWW x 15 ft. to bathroom and sits to void; pt. transfers from commode and performs post-toileting hygiene independently; pt. then amb. into hallway x 80 ft. using FWW, sba; she returns to room and performs balance activity for narrow base of support standing, and stepping in full [place]; she lowers to sitting and then performs sit to stand w/FWW, sba; she steps to b/s and lowers to sitting; pt. able to lift LE's into bed w/no assist, requiring increased timing. Pt. then instructed in supine LE ex. for ankle pumps, heel slides, SLR's, hip Ab., glute sets, bridges, and knee extensions for sitting, marches for sitting and mini squats. Pt. voices understanding ex. as instructed and has no questions after PT session. She is provided w/written handout for ex. program; pt. has her call light in reach and has no voiced concerns after PT session. She is willing to transfer to SNF to continue working on strengthening and balance activity after d/c from hospital. Plan is transfer to SNF today. But a new problem in that the patient has not communicated clearly what her discharge from this SNF will look like. She states that she is going to get back in her car and drive back to [facility] where her sister lives. When Rn Lactation called her sister, sister did not know anything about what was going on. And could not confirm that discharge plan. So right now we are holding pattern with a half-way facility. They do not want to take her unless there is a safe discharge. And the patient needs to communicate with her sister. If this patient continues to improve on a daily basis with physical therapy, she may end up just being discharged from here to her car. From there she will need to figure out how she is clinic at the [facility]. Qualifiers: Hypotension type: unspecified hypotension type Qualified Code(s): I95.9 - Hypotension, unspecified (2) Hypokalemia Impression: Resolved. She started at 1.6 and 1 several potassium rider she was 4.1 - 4.0 for last 3 days (3) Dehydration with hyponatremia Impression: Causing acute kidney injury as well. Creatinine started at 1.5>1.1>0.9 today. Plan: monitor in am (4) UTI due to Klebsiella species Impression: This urinalysis is from August 15. That was her visit to the ED. Resistant to ampicillin, nitrofurantoin, and Pipracil and. Sensitive to all others. Blood cultures from August 18 are negative Plan: On ceftriaxone. Day #4. Change to Keflex again. watch for diarrhea. Plan is total of 7 days of abx. (5) Diarrhea due to drug Impression: Most likely from antibiotics. She is C. difficile negative. She continued to have a copious, copious amount of stool that is liquid, and she could not get to the bedside commode in time. That was on 08/19. Better since then. She is currently on Imodium 8 times daily as needed. Plan: Increased Imodium to every 2 hours max 8 a day Questran powder 3 times daily did not need to be added. 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 Some intertriginous groin fold. But then it extends down into the skin of her thigh with 6 cm of thigh skin involved as they abut each other. All of the superficial skin has been removed and it is just raw. Showered 08/19. Plan:Nystatin topical continues. Diflucan added 08/20 (7) Iron deficiency anemia Impression: anemia panel Laboratory Tests 08/19/18 08/19/18 08/19/18 14:35 14:35 14:39 Iron 21 L TIBC 199 L % Saturation 11 L Transferrin 142 L Ferritin 19.0 Lactate Dehydrogenase 126 Vitamin B12 1386 H When she returns to outpatient status will need EGD and colonoscopy. She denies black stool, weight change. The diarrhea started w the abx for her UTI this last week. (8) Abnormal EKG Impression: Now that her potassium is normal, rechecked EKG to see what baseline looks like and to make sure her T wave changes have resolved. they did. (9) Poor hygiene Impression: Shower 08/19. (10) Hyperchloremia Impression: most likely due to diarrhea. Her K and Na are now nml. Stopped IVF. She has adequate oral intake. Qualifiers: Qualified Code(s): I95.9 - Hypotension, unspecified Qualifiers: Qualified Code(s): I95.9 - Hypotension, unspecified
[2018-08-21] MEDS: cephALEXin 250 MG CAPSULE PO SCH (18:50)
[2018-08-21] MEDS: FLUoxetine 10 MG CAPSULE PO SCH (21:07)
[2018-08-22] MEDS: cephALEXin 250 MG CAPSULE PO SCH ×4 (01:03→17:47)
[2018-08-22] MEDS: SODIUM CHLORIDE FLUSH 0.9% 10 ML SYRINGE IVP SCH ×4 (01:03→17:41)
[2018-08-22] MEDS: POLYETHYLENE GLYCOL 3350 17 GM PACKET PO SCH (01:53)
[2018-08-22] MEDS: NYSTATIN POWDER 15 GM TOP SCH ×2 (06:02→20:53)
[2018-08-22 06:07] LABS: BASOPHILS % (AUTO) 0.6 %; HGB - HEMOGLOBIN 8.6 g/dL (12.0-16.0); LYMPHOCYTES % (AUTO) 10.3 %; MEAN CORPUSCULAR HEMOGLOBIN 26.4 pg (27.0-31.0); MEAN CORPUSCULAR HGB CONC 33.1 g/dL (32.0-36.0); MEAN CORPUSCULAR VOLUME 79.8 fL (81.0-99.0); MEAN PLATELET VOLUME 6.4 fL (7.9-10.8); MONOCYTES % (AUTO) 7.7 %; NEUTROPHILS % (AUTO) 79.4 %; PLT - PLATELET COUNT 423 10^3/uL (130-450); RED BLOOD COUNT 3.27 10^6/uL (4.20-5.40); RED CELL DISTRIBUTION WIDTH 18.9 % (12.0-15.0); WHITE BLOOD COUNT 10.1 x10^3/uL (4.8-10.8)
[2018-08-22 06:14] LABS: CALCIUM 8.3 mg/dL (8.5-10.3); CREATININE 0.8 mg/dL (0.4-1.0)
[2018-08-22 06:15] LABS: ABNORMAL LYMPHS % (MANUAL) 0 %
[2018-08-22] MEDS: SACCHAROMYCES BOULARDII 250 MG CAPSULE PO SCH ×2 (08:01→16:24)
[2018-08-22] MEDS: FLUCONAZOLE 100 MG TABLET PO SCH (08:01)
[2018-08-22] MEDS: SODIUM CHLORIDE FLUSH 0.9% 10 ML SYRINGE IVP PRN (08:01)
[2018-08-22] MEDS: MULTIVITAMIN W/MINERALS TABLET PO SCH (08:01)
[2018-08-22 08:04] LABS: BAND NEUTROPHILS % (MANUAL) 3 %; BASOPHILS # (MANUAL) 0.1 10^3/uL (0-0.1); BASOPHILS % (MANUAL) 1 %; EOSINOPHILS # (MANUAL) 0.1 10^3/uL (0-0.7); LYMPHOCYTES % (MANUAL) 10 %; NEUTROPHILS # (MANUAL) 7.9 10^3/uL (1.5-6.6); NEUTROPHILS % (MANUAL) 75 %
[2018-08-22 08:06] LABS: DIFFERENTIAL COMMENT MANUAL DIFFERENTIAL; PLATELET ESTIMATE, MANUAL NORMAL (130-450,000) (NORMAL)
[2018-08-22] MEDS: FERROUS GLUCONATE 324 MG TABLET PO SCH (11:08)
--- NOTE | 2018-08-22 17:40 | PROVIDER PROGRESS NOTE ---
Subjective - Prog Note Date Prog Note Date: 08/22/18 Prog Note Time: 17:41 - Subjective Pt reports feeling: Improved Subjective: She is able to eat. Diarrhea has resolved. She is able to walk with a walker in the hallways but she is wiped out by the time she gets back. She needs to be strong enough to be able to get in her car and drive almost to [place] if that is her plan. She is worried about her dog that is being taken care of by a friend. She denies chest pain, palpitations, shortness of breath. Current Medications - Current Medications Current Medications: Active Medications Acetaminophen (Tylenol) 650 mg PO Q4HR PRN PRN Reason: Pain or Fever > 38C (100.4F) Last Admin: 08/19/18 11:03 Dose: 650 mg Cephalexin (Keflex) 250 mg PO Q6HR [facility] Last Admin: 08/22/18 13:54 Dose: 250 mg Diphenoxylate HCl/Atropine (Lomotil) 1 tab PO Q2H PRN PRN Reason: Diarrhea Last Admin: 08/21/18 08:28 Dose: 1 tab Ferrous Gluconate (Fergon) 324 mg PO DAILYWM [facility] Last Admin: 08/22/18 11:08 Dose: 324 mg Fluconazole (Diflucan) 100 mg PO DAILY [facility] Last Admin: 08/22/18 08:01 Dose: 100 mg Fluoxetine HCl (Prozac) 60 mg PO 2100 [facility] Last Admin: 08/21/18 21:07 Dose: 60 mg Loperamide HCl (Imodium) 2 mg PO QID PRN PRN Reason: Diarrhea Last Admin: 08/19/18 07:55 Dose: 2 mg Multi-Ingredient Ointment (Zinc Oxide) 1 applic TOP PRN PRN PRN Reason: Skin Care Last Admin: 08/19/18 08:26 Dose: 1 applic Multivitamins/Minerals (Theragran M) 1 tab PO DAILYWM [facility] Last Admin: 08/22/18 08:01 Dose: 1 tab Nystatin (Nystop) 1 applic TOP BID [facility] Last Admin: 08/22/18 06:02 Dose: 1 applic Vitamin B Complex 1 each PO DAILY [facility] Last Admin: 08/22/18 08:01 Dose: Not Given Polyethylene Glycol (Miralax) 17 gm PO DAILY [facility] Last Admin: 08/22/18 01:53 Dose: Not Given Saccharomyces Boulardii (Florastor) 250 mg PO BIDWM [facility] Last Admin: 08/22/18 16:24 Dose: 250 mg Sodium Chloride (Normal Saline Flush 0.9%) 10 ml IVP 0100,0900,1700 [facility] Last Admin: 08/22/18 17:41 Dose: Not Given Sodium Chloride (Normal Saline Flush 0.9%) 10 ml IVP PRN PRN PRN Reason: NEEDED PER PROVIDER ORDERS Last Admin: 08/22/18 08:01 Dose: 10 ml Omeprazole 20 mg PO QDAC 05/27/15 raNITIdine [Zantac] 150 mg PO BID 05/27/15 FLUoxetine [PROzac] 60 mg PO DAILY 08/15/18 Cephalexin [Keflex] 500 mg PO [id number] 08/18/18 Fluconazole [Diflucan] 150 mg PO Q72HX3 08/18/18 Vitamin B Complex 1 tab PO DAILY 08/18/18 Objective - Vital Signs/Intake & Output Reviewed Vital Signs: Yes Vital Signs: Vital Signs x48h Temp Pulse Resp BP Pulse Ox 08/22/18 15:30 37.3 C 85 18 119/67 100 Intake & Output: Intake & Output 08/19/18 08/20/18 08/21/18 08/22/18 23:59 23:59 23:59 23:59 Intake Total 6112.000 1620 1550 1050 Output Total 502 Balance 5610.000 1620 1550 1050 - Objective General Appearance: positive: No acute distress, Alert Eyes Bilateral: positive: PERRL, EOMI ENT: positive: Pharynx nml Neck: positive: No JVD. negative: Stiff neck, Carotid bruit Respiratory: positive: Chest non-tender. negative: Wheezes, Rales, Rhonchi Cardiovascular: positive: Regular rate & rhythm. negative: JVD present, Gallop/S4, Friction rub Abdomen: positive: Non-tender, No organomegaly, Nml bowel sounds, No distention Skin: positive: Other (The redness over the pudendal area from Barbara is completely resolved. The redness of the upper thighs were her they come together into her intertriginous folds is gradually drying up and healing. It is not nearly as red and angry and oozing as it was on admission.) Extremities: positive: Non-tender, Full ROM, No pedal edema Neurologic/Psychiatric: positive: Oriented x3, CN's nml (2-12), Motor nml, Weakness - Lab Results Fish Bones: 08/22/18 05:45 08/22/18 05:45 Other Labs: Lab Results x24hrs 08/22/18 08/22/18 Range/Units 05:45 05:45 WBC 10.1 (4.8-10.8) x10^3/uL RBC 3.27 L (4.20-5.40) 10^6/uL Hgb 8.6 L (12.0-16.0) g/dL Hct 26.1 L (37.0-47.0) % MCV 79.8 L (81.0-99.0) fL MCH 26.4 L (27.0-31.0) pg MCHC 33.1 (32.0-36.0) g/dL RDW 18.9 H (12.0-15.0) % Plt Count 423 (130-450) 10^3/uL MPV 6.4 L (7.9-10.8) fL Neut # (Auto) Not Reportable Lymph # (Auto) Not Reportable [place] # (Auto) Not Reportable Eos # (Auto) Not Reportable Baso # (Auto) Not Reportable Absolute Nucleated RBC Not Reportable Total Counted 100 Band Neuts % (Manual) 3 (0 - 10) % Abnorm Lymph % (Manual) 0 % Nucleated RBC % Not Reportable Neutrophils # (Manual) 7.9 H (1.5-6.6) 10^3/uL Lymphocytes # (Manual) 1.0 L (1.5-3.5) 10^3/uL Monocytes # (Manual) 1.0 (0.0-1.0) 10^3/uL Eosinophils # (Manual) 0.1 (0-0.7) 10^3/uL Basophils # (Manual) 0.1 (0-0.1) 10^3/uL Differential Comment MANUAL DIFFERENTIAL Platelet Estimate NORMAL (130-450,000) (NORMAL) RBC Morph Micro Appear 1+ POLYCHROMASIA (NORMAL) Sodium 139 (135-145) mmol/L Potassium 4.1 (3.5-5.0) mmol/L Chloride 117 H (101-111) mmol/L Carbon Dioxide 15 L (21-32) mmol/L Anion Gap 7.0 (6-13) BUN 10 (6-20) mg/dL Creatinine 0.8 (0.4-1.0) mg/dL Estimated GFR (MDRD) 72 L (>89) Glucose 88 (70-100) mg/dL Calcium 8.3 L (8.5-10.3) mg/dL ABX Reporting Has patient been on IV antibiotics over the past 48 hours?: Yes Assessment/Plan - Problem List (1) Weakness Impression: She was severely deconditioned with her dehydration, electrolyte imbalance. Her infections are much better. Hydration is much better. But she is still weak enough that physical therapy would like to work with her for endurance over the next few days. When she is cleared by physical therapy the patient will be discharged to the outpatient setting. (2) Hypotension Impression: Impression: RESOLVED. This is an unfortunate female who lives in her car. She developed a candidal rash due to lack of bathing facilities. Then developed a UTI. Was seen in the emergency room and had a horrendous Barbara of the lower abdominal wall, intertriginous folds, labia and vagina. She was treated as a UTI and candidal rash and sent home or back to her car. She then developed diarrhea and is even sicker than before. She is weak, cannot move to sit to transfer because of weakness. She is found to be hypotensive. Dehydrated. Hypokalemic. She was placed in ICU because of the severe hypokalemia. Plan: IVF stopped 08/19 and BP ok Transferred to [facility] 08/19 Hypotension has resolved. Very weak and has been evaluated by PT 08/19: Pt. is a cooperative 68 y.o. F who presents w/poor mobilty, LE weakness and decreased balance; she will need continued PT while in hospital working on her strength and balance for functional activity; pt. may need f/u PT after hospital d/c at SNF to gain her independent status back. Recommned PT 1-2x/day while pt. in hospital. 08/21:Pt. seen x total of 17 min. for functional activity: pt. performs Tinetti test for balance and walking; she demonstrates average risk for falling w/score of 23/28; she transfers OOB w/cga; she amb. using FWW x 15 ft. to bathroom and sits to void; pt. transfers from commode and performs post-toileting hygiene independently; pt. then amb. into hallway x 80 ft. using FWW, sba; she returns to room and performs balance activity for narrow base of support standing, and stepping in full [place]; she lowers to sitting and then performs sit to stand w/FWW, sba; she steps to b/s and lowers to sitting; pt. able to lift LE's into bed w/no assist, requiring increased timing. Pt. then instructed in supine LE ex. for ankle pumps, heel slides, SLR's, hip Ab., glute sets, bridges, and knee extensions for sitting, marches for sitting and mini squats. Pt. voices understanding ex. as instructed and has no questions after PT session. She is provided w/written handout for ex. program; pt. has her call light in reach and has no voiced concerns after PT session. She is willing to transfer to SNF to continue working on strengthening and balance activity after d/c from hospital. Plan is transfer to SNF 08/21. But a new problem in that the patient has not communicated clearly what her discharge from this SNF will look like. She state s that she is going to get back in her car and drive back to [facility] where her sister lives. When [facility] Care Unit Nurse called her sister, sister did not know anything about what was going on. And could not confirm that discharge plan. So right now we are holding pattern with a correction facility. They do not want to take her unless there is a safe discharge. And the patient needs to communicate with her sister. Which was done but still too uncertain a discharge. she is still weak enough that PT wants to work with her for endurance. They will let me know when she is safe to be discharged. If this patient continues to improve on a daily basis with physical therapy, she may end up just being discharged from here to her car. From there she will need to figure out how she is clinic at the [place] [facility]. Qualifiers: Hypotension type: unspecified hypotension type Qualified Code(s): I95.9 - Hypotension, unspecified (3) Hypokalemia Impression: Resolved. She started at 1.6 and 1 several potassium rider she was 4.1 - 4.0 for last 3 days (4) Dehydration with hyponatremia Impression: Resolved. Causing acute kidney injury as well. Creatinine started at 1.5>1.1>0.9 today. Plan: monitor in am (5) UTI due to Klebsiella species Impression: This urinalysis is from August 15. That was her visit to the ED. Resistant to ampicillin, nitrofurantoin, and Pipracil and. Sensitive to all others. Blood cultures from August 18 are negative Plan: On ceftriaxone. Day #4. Change to Keflex again. Day #2. watch for diarrhea. Plan is total of 7 days of abx. So can be off Keflex by 08/23. (6) Diarrhea due to drug Impression: Resolved. Most likely from antibiotics. She is C. difficile negative. She continued to have a copious, copious amount of stool that is liquid, and she could not get to the bedside commode in time. That was on 08/19. Better since then. She is currently on Imodium 8 times daily as needed. Plan: Increased Imodium to every 2 hours max 8 a day Questran powder 3 times daily did not need to be added. 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 Some intertriginous groin fold. But then it extends down into the skin of her thigh with 6 cm of thigh skin involved as they abut each other. All of the superficial skin has been removed and it is just raw. Showered 08/19. Plan:Nystatin topical continues. Diflucan added 08/20 (8) Iron deficiency anemia Impression: anemia panel Laboratory Tests 08/19/18 08/19/18 08/19/18 14:35 14:35 14:39 Iron 21 L TIBC 199 L % Saturation 11 L Transferrin 142 L Ferritin 19.0 Lactate Dehydrogenase 126 Vitamin B12 1386 H When she returns to outpatient status will need EGD and colonoscopy. She denies black stool, weight change. The diarrhea started w the abx for her UTI this last week. Started on iron supplement w multivit (9) Abnormal EKG Impression: Resolved. Now that her potassium is normal, rechecked EKG to see what baseline looks like and to make sure her T wave changes have resolved. they did. (10) Poor hygiene Impression: Resolved Shower 08/19. (11) Hyperchloremia Impression: Still at 117 today. most likely due to diarrhea. Her K and Na are now nml. Stopped IVF. She has adequate oral intake. Qualifiers: Qualified Code(s): I95.9 - Hypotension, unspecified
[2018-08-22] MEDS: ONDANSETRON ODT 4 MG TABLET TL PRN (19:38)
[2018-08-22] MEDS: FLUoxetine 10 MG CAPSULE PO SCH (20:53)
[2018-08-22] MEDS ORDERED: MAGNESIUM OXIDE 400 MG TABLET PO SCH (22:00)
[2018-08-23] MEDS: cephALEXin 250 MG CAPSULE PO SCH ×4 (00:33→18:01)
[2018-08-23] MEDS: SODIUM CHLORIDE FLUSH 0.9% 10 ML SYRINGE IVP SCH ×3 (02:25→18:02)
[2018-08-23] MEDS: SACCHAROMYCES BOULARDII 250 MG CAPSULE PO SCH ×2 (08:23→17:14)
[2018-08-23] MEDS: MULTIVITAMIN W/MINERALS TABLET PO SCH (08:23)
[2018-08-23] MEDS: FERROUS GLUCONATE 324 MG TABLET PO SCH (08:23)
[2018-08-23] MEDS: ONDANSETRON ODT 4 MG TABLET TL PRN ×2 (09:25→19:53)
[2018-08-23] MEDS: FLUCONAZOLE 100 MG TABLET PO SCH (09:25)
[2018-08-23] MEDS: POLYETHYLENE GLYCOL 3350 17 GM PACKET PO SCH (09:25)
[2018-08-23] MEDS: ACETAMINOPHEN 325 MG TABLET PO PRN ×2 (09:31→21:34)
--- NOTE | 2018-08-23 10:30 | PROVIDER PROGRESS NOTE ---
Subjective - Prog Note Date Prog Note Date: 08/23/18 Prog Note Time: 10:28 - Subjective Subjective: She just got out of the shower. From admission to now she feels so much better. The only discomfort she has is where the skin of her thighs rub together. It still feels raw and uncomfortable. But the vaginal discharge has gone away. Diarrhea has gone away. She is able to eat and not have an upset stomach with nausea. She continues to be weak. Working with physical therapy. That is her main problem at this point in time. She is so severely deconditioned that simple activity exhausted. She has changed her discharge plan. She thought at first that we would discharge her and then she would eventually just make her way back down to [place]. But as she is feeling better, and is excepting some of the outpatient services to keep her safe, she is probably opting to stay [place] the [place]. Social work is working on getting her placed to [facility] in [place]. That will be her eventual domicile. Between discharge from the hospital to [facility], she would hopefully go to [facility]. Medicaid is pending. In the meantime physical therapy continues to work with her to improve her endurance. Current Medications - Current Medications Current Medications: Active Medications Acetaminophen (Tylenol) 650 mg PO Q4HR PRN PRN Reason: Pain or Fever > 38C (100.4F) Last Admin: 08/23/18 09:31 Dose: 650 mg Cephalexin (Keflex) 250 mg PO Q6HR [facility] Last Admin: 08/23/18 06:28 Dose: 250 mg Diphenoxylate HCl/Atropine (Lomotil) 1 tab PO Q2H PRN PRN Reason: Diarrhea Last Admin: 08/21/18 08:28 Dose: 1 tab Ferrous Gluconate (Fergon) 324 mg PO DAILYWM [facility] Last Admin: 08/23/18 08:23 Dose: 324 mg Fluconazole (Diflucan) 100 mg PO DAILY [facility] Last Admin: 08/23/18 09:25 Dose: 100 mg Fluoxetine HCl (Prozac) 60 mg PO 2100 [facility] Last Admin: 08/22/18 20:53 Dose: 60 mg Loperamide HCl (Imodium) 2 mg PO QID PRN PRN Reason: Diarrhea Last Admin: 10/02/18 07:55 Dose: 2 mg Multi-Ingredient Ointment (Zinc Oxide) 1 applic TOP PRN PRN PRN Reason: Skin Care Last Admin: 08/19/18 08:26 Dose: 1 applic Multivitamins/Minerals (Theragran M) 1 tab PO DAILYWM [facility] Last Admin: 08/23/18 08:23 Dose: 1 tab Nystatin (Nystop) 1 applic TOP BID [facility] Last Admin: 08/22/18 20:53 Dose: 1 applic Ondansetron HCl (Zofran Odt) 4 mg TL Q4HR PRN PRN Reason: Nausea / Vomiting Last Admin: 08/23/18 09:25 Dose: 4 mg Vitamin B Complex 1 each PO DAILY [facility] Last Admin: 08/23/18 09:25 Dose: Not Given Polyethylene Glycol (Miralax) 17 gm PO DAILY [facility] Last Admin: 08/23/18 09:25 Dose: Not Given Saccharomyces Boulardii (Florastor) 250 mg PO BIDWM [facility] Last Admin: 08/23/18 08:23 Dose: 250 mg Sodium Chloride (Normal Saline Flush 0.9%) 10 ml IVP 0100,0900,1700 [facility] Last Admin: 08/23/18 02:25 Dose: Not Given Sodium Chloride (Normal Saline Flush 0.9%) 10 ml IVP PRN PRN PRN Reason: NEEDED PER PROVIDER ORDERS Last Admin: 08/22/18 08:01 Dose: 10 ml Omeprazole 20 mg PO QDAC 05/27/15 raNITIdine [Zantac] 150 mg PO BID 05/27/15 FLUoxetine [PROzac] 60 mg PO DAILY 08/15/18 Cephalexin [Keflex] 500 mg PO [id number] 08/18/18 Fluconazole [Diflucan] 150 mg PO Q72HX3 08/18/18 Vitamin B Complex 1 tab PO DAILY 08/18/18 Objective - Vital Signs/Intake & Output Reviewed Vital Signs: Yes Vital Signs: Vital Signs x48h Temp Pulse Resp BP Pulse Ox 08/23/18 07:58 36.6 C 81 18 117/63 100 Intake & Output: Intake & Output 08/20/18 08/21/18 08/22/18 08/23/18 23:59 23:59 23:59 23:59 Intake Total 1620 1550 1904 354 Balance 1620 1550 1904 354 - Objective General Appearance: positive: No acute distress, Alert, Other (White female who looks slightly older than stated age. Well groomed.) Eyes Bilateral: positive: PERRL, EOMI ENT: positive: Other (Partial loss of teeth. Dental caries. Oral mucosa is pi nk and moist.) Neck: positive: No JVD. negative: Stiff neck, Carotid bruit Respiratory: positive: Chest non-tender. negative: Wheezes, Rales, Rhonchi Cardiovascular: positive: Regular rate & rhythm. negative: Gallop/S4, Friction rub Abdomen: positive: Non-tender, No organomegaly, Nml bowel sounds, No distention. negative: Guarding, Rebound Skin: positive: Other (The pudendal area is now completely clear of any redness, pinkness. The labia have also come back down to normal size, almost minimal pinkness there. Still a little bit of excessive pinkness in the introitus. Perineum. The skin of her upper thighs has become roasterman, areas of hyperpigmentation where her old skin that had peeled off is now healing. She is left with a 3 x 4 cm area of denuded skin area covered in yeast that is pink. This is both of these are present the area of skin loss is present in both upper thighs. In the center of the previously larger 8 x 12 area of skin loss. It really is much improved. There is no surrounding cellulitis. No drainage.) Extremities: positive: Non-tender, No pedal edema Neurologic/Psychiatric: positive: Oriented x3, CN's nml (2-12), Motor nml, Weakness - Lab Results Fish Bones: 08/22/18 05:45 08/22/18 05:45 Other Labs: Lab Results x24hrs 08/23/18 Range/Units 05:55 Magnesium 1.9 (1.7-2.8) mg/dL ABX Reporting Has patient been on IV antibiotics over the past 48 hours?: Yes Assessment/Plan - Problem List (1) Weakness Impression: She was severely deconditioned with her dehydration, electrolyte imbalance. Her infections are much better. Hydration is much better. But she is still weak enough that physical therapy would like to work with her for 1-2 more days. She is day 1. When she is cleared by physical therapy the patient will be discharged to the outpatient setting: either SNF or [facility]. (2) Hypotension Impression: RESOLVED. This is an unfortunate female who lives in her car. She developed a candidal rash due to lack of bathing facilities. Then developed a UTI. Was seen in the emergency room and had a horrendous Barbara of the lower abdominal wall, intertriginous folds, labia and vagina. She was treated as a UTI and candidal rash and sent home or back to her car. She then developed diarrhea and is even sicker than before. She was weak, could not move to sit to transfer because of weakness. She is found to be hypotensive. Dehydrated. Hypokalemic. She was placed in ICU because of the severe hypokalemia. Plan: IVF stopped 08/19 and BP ok Transferred to [facility] 08/19 Hypotension has resolved. Very weak and has been evaluated by PT 08/19: Pt. is a cooperative 68 y.o. F who presents w/poor mobilty, LE weakness and decreased balance; she will need continued PT while in hospital working on her strength and balance for functional activity; pt. may need f/u PT after hospital d/c at SNF to gain her independent status back. Recommned PT 1-2x/day while pt. in hospital. 08/21:Pt. seen x total of 17 min. for functional activity: pt. performs Tinetti test for balance and walking; she demonstrates average risk for falling w/score of 23/28; she transfers OOB w/cga; she amb. using FWW x 15 ft. to bathroom and sits to void; pt. transfers from commode and performs post-toileting hygiene independently; pt. then amb. into hallway x 80 ft. using FWW, sba; she returns to room and performs balance activity for narrow base of support standing, and s tepping in full belkofski; she lowers to sitting and then performs sit to stand w/FWW, sba; she steps to b/s and lowers to sitting; pt. able to lift LE's into bed w/no assist, requiring increased timing. Pt. then instructed in supine LE ex. for ankle pumps, heel slides, SLR's, hip Ab., glute sets, bridges, and knee extensions for sitting, marches for sitting and mini squats. Pt. voices understanding ex. as instructed and has no questions after PT session. She is provided w/written handout for ex. program; pt. has her call light in reach and has no voiced concerns after PT session. She is willing to transfer to SNF to continue working on strengthening and balance activity after d/c from hospital. 08/22:Pt. treated today for gait training, which she tolerated well. Inclusion of dynamic tasks such as turning and going up/down stairs to prepare her for D/C either to SNF or to her car, pending a safe discharge plan with her sister. Patient is improving in her bed mobility and can now independently get in/out of bed with SBA once standing. She expressed quickly fatiguing towards end of session. Pt. left with call light and lunch tray sitting in bedside recliner with no needs reported. She will benefit from skilled PT to address remaining ms strength, endurance, gait, and balance deficits to decrease risk of falls and improve functional independence. Plan is transfer to SNF 08/21. But a new problem in that the patient has not communicated clearly what her discharge from this SNF will look like. She states that she is going to get back in her car and drive back to [facility] where her sister lives. When Price Checker called her sister, sister did not know anything about what was going on. And could not confirm that discharge plan. So right now we are holding pattern with a detention facility. They do not want to take her unless there is a safe discharge. And the patient needed to communicate with her sister. This was done and the patient has decided to stay on the [place]. Plan is in #1. she is still weak enough that PT wants to work with her for endurance. They will let me know when she is safe to be discharged Qualifiers: Hypotension type: unspecified hypotension type Qualified Code(s): I95.9 - Hypotension, unspecified (3) Hypokalemia Impression: Resolved. She started at 1.6 and 1 several potassium rider she was 4.1 - 4.0 for last 3 days (4) Dehydration with hyponatremia Impression: Resolved. Causing acute kidney injury as well. Creatinine started at 1.5>1.1>0.9 today. Plan: monitor in am (5) UTI due to Klebsiella species Impression: This urinalysis is from August 15. That was her visit to the ED. Resistant to ampicillin, nitrofurantoin, and Pipracil and. Sensitive to all others. Blood cultures from August 18 are negative Plan: On ceftriaxone. Day #4. Change to Keflex again. Day #3. watch for kentrell rrhea. Plan is total of 7 days of abx. So can be off Keflex by 08/23, today. I will stop after last dose today. (6) Diarrhea due to drug Impression: Resolved. Most likely from antibiotics. She is C. difficile negative. She continued to have a copious, copious amount of stool that is liquid, and she could not get to the bedside commode in time. That was on 08/19. Better since then. She is currently on Imodium 8 times daily as needed. Plan: Increased Imodium to every 2 hours max 8 a day Questran powder 3 times daily did not need to be added. (7) Candidiasis of genitalia in female Impression: Improving. Involves that pudendum, labia, vagina. Some intertriginous groin fold. But then it extends down into the skin of her thigh with 6 cm of thigh skin involved as they abut each other. All of the superficial skin has been removed and it is just raw. Showered 08/19 and today. Plan:Nystatin topical continues. Diflucan added 08/20 (8) Iron deficiency anemia Impression: anemia panel Laboratory Tests 08/19/18 08/19/18 08/19/18 14:35 14:35 14:39 Iron 21 L TIBC 199 L % Saturation 11 L Transferrin 142 L Ferritin 19.0 Lactate Dehydrogenase 126 Vitamin B12 1386 H When she returns to outpatient status will need EGD and colonoscopy. She denies black stool, weight change. The diarrhea started w the abx for her UTI this last week. Started on iron supplement w multivit (9) Abnormal EKG Impression: Resolved. Now that her potassium is normal, rechecked EKG to see what baseline looks like and to make sure her T wave changes have resolved. they did. (10) Poor hygiene Impression: Resolved Shower 08/19 and today. (11) Hyperchloremia Impression: Still at 117 on 08/22. Recheck tomorrow. most likely due to diarrhea. Her K and Na are now nml. Stopped IVF. She has adequate oral intake. (2) Hypotension Qualifiers: Qualified Code(s): I95.9 - Hypotension, unspecified
[2018-08-23] MEDS: NYSTATIN POWDER 15 GM TOP SCH ×2 (10:33→21:35)
[2018-08-23] MEDS: FLUoxetine 10 MG CAPSULE PO SCH (21:35)
[2018-08-24] MEDS: cephALEXin 250 MG CAPSULE PO SCH ×2 (00:59→06:25)
[2018-08-24] MEDS: SODIUM CHLORIDE FLUSH 0.9% 10 ML SYRINGE IVP SCH ×3 (03:48→16:50)
[2018-08-24 06:27] LABS: CALCIUM 8.4 mg/dL (8.5-10.3); CREATININE 0.9 mg/dL (0.4-1.0)
--- NOTE | 2018-08-24 10:43 | PROVIDER PROGRESS NOTE ---
Subjective - Prog Note Date Prog Note Date: 08/24/18 Prog Note Time: 10:43 - Subjective Pt reports feeling: No change Subjective: She is eating her meals. Walking with physical therapy. Is the best she has been. Now for the plans to get home. Current Medications - Current Medications Current Medications: Active Medications Acetaminophen (Tylenol) 650 mg PO Q4HR PRN PRN Reason: Pain or Fever > 38C (100.4F) Last Admin: 08/23/18 21:34 Dose: 650 mg Cephalexin (Keflex) 250 mg PO Q6HR [facility] Stop: 08/24/18 23:59 Last Admin: 08/24/18 06:25 Dose: 250 mg Diphenoxylate HCl/Atropine (Lomotil) 1 tab PO Q2H PRN PRN Reason: Diarrhea Last Admin: 08/21/18 08:28 Dose: 1 tab Ferrous Gluconate (Fergon) 324 mg PO DAILYWM [facility] Last Admin: 08/23/18 08:23 Dose: 324 mg Fluconazole (Diflucan) 100 mg PO DAILY [facility] Last Admin: 08/23/18 09:25 Dose: 100 mg Fluoxetine HCl (Prozac) 60 mg PO 2100 [facility] Last Admin: 08/23/18 21:35 Dose: 60 mg Loperamide HCl (Imodium) 2 mg PO QID PRN PRN Reason: Diarrhea Last Admin: 08/19/18 07:55 Dose: 2 mg Multi-Ingredient Ointment (Zinc Oxide) 1 applic TOP PRN PRN PRN Reason: Skin Care Last Admin: 08/19/18 08:26 Dose: 1 applic Multivitamins/Minerals (Theragran M) 1 tab PO DAILYWM [facility] Last Admin: 08/23/18 08:23 Dose: 1 tab Nystatin (Nystop) 1 applic TOP BID [facility] Last Admin: 08/23/18 21:35 Dose: 1 applic Ondansetron HCl (Zofran Odt) 4 mg TL Q4HR PRN PRN Reason: Nausea / Vomiting Last Admin: 08/23/18 19:53 Dose: 4 mg Vitamin B Complex 1 each PO DAILY [facility] Last Admin: 08/23/18 09:25 Dose: Not Given Polyethylene Glycol (Miralax) 17 gm PO DAILY [facility] Last Admin: 08/23/18 09:25 Dose: Not Given Saccharomyces Boulardii (Florastor) 250 mg PO BIDWM [facility] Last Admin: 08/23/18 17:14 Dose: 250 mg Sodium Chloride (Normal Saline Flush 0.9%) 10 ml IVP 0100,0900,1700 [facility] Last Admin: 08/24/18 03:48 Dose: Not Given Sodium Chloride (Normal Saline Flush 0.9%) 10 ml IVP PRN PRN PRN Reason: NEEDED PER PROVIDER ORDERS Last Admin: 08/22/18 08:01 Dose: 10 ml Omeprazole 20 mg PO QDAC 05/27/15 raNITIdine [Zantac] 150 mg PO BID 05/27/15 FLUoxetine [PROzac] 60 mg PO DAILY 08/15/18 Cephalexin [Keflex] 500 mg PO [id number] 08/18/18 Fluconazole [Diflucan] 150 mg PO Q72HX3 08/18/18 Vitamin B Complex 1 tab PO DAILY 08/18/18 Objective - Vital Signs/Intake & Output Reviewed Vital Signs: Yes Vital Signs: Vital Signs x48h Temp Pulse Resp BP Pulse Ox 08/24/18 06:00 36.8 C 99 20 128/61 94 Intake & Output: Intake & Output 08/21/18 08/22/18 08/23/18 08/24/18 23:59 23:59 23:59 23:59 Intake Total 1550 1904 1288 200 Balance 1550 1904 1288 200 - Objective General Appearance: positive: Alert, Anxious Eyes Bilateral: positive: PERRL, EOMI ENT: positive: No signs of dehydration Neck: positive: No JVD. negative: Stiff neck, Carotid bruit Respiratory: positive: Chest non-tender. negative: Wheezes, Rales, Rhonchi Cardiovascular: positive: Regular rate & rhythm. negative: Gallop/S4, Friction rub Abdomen: positive: Non-tender, No organomegaly, Nml bowel sounds, No distention Skin: positive: Warm, Dry Extremities: positive: Non-tender, Full ROM, No pedal edema Neurologic/Psychiatric: positive: Oriented x3, CN's nml (2-12), Motor nml - Lab Results Fish Bones: 08/22/18 05:45 08/24/18 06:05 Other Labs: Lab Results x24hrs 08/24/18 Range/Units 06:05 Sodium 137 (135-145) mmol/L Potassium 4.4 (3.5-5.0) mmol/L Chloride 113 H (101-111) mmol/L Carbon Dioxide 19 L (21-32) mmol/L Anion Gap 5.0 L (6-13) BUN 10 (6-20) mg/dL Creatinine 0.9 (0.4-1.0) mg/dL Estimated GFR (MDRD) 62 L (>89) Glucose 85 (70-100) mg/dL Calcium 8.4 L (8.5-10.3) mg/dL ABX Reporting Has patient been on IV antibiotics over the past 48 hours?: Yes Assessment/Plan - Problem List (1) Weakness Impression: - Problem List (1) Weakness Impression: She was severely deconditioned with her dehydration, electrolyte imbalance. Her infections are much better. Hydration is much better. But she is still weak enough that physical therapy would like to work with her for 1-2 more days. She is day 2. When she is cleared by physical therapy the patient will be discharged to the outpatient setting: either SNF or [facility]. Since she has improved tremendously, most likely [facility]. Plan for dc tomorrow am. (2) Hypotension Impression: RESOLVED. This is an unfortunate female who lives in her car. She developed a candidal rash due to lack of bathing facilities. Then developed a UTI. Was seen in the emergency room and had a horrendous Barbara of the lower abdominal wall, intertriginous folds, labia and vagina. She was treated as a UTI and candidal rash and sent home or back to her car. She then developed diarrhea and is even sicker than before. She was weak, could not move to sit to transfer because of weakness. She is found to be hypotensive. Dehydrated. Hypokalemic. She was placed in ICU because of the severe hypokalemia. Plan: IVF stopped 08/19 and BP ok Transferred to [facility] 08/19 Hypotension has resolved. Very weak and has been evaluated by PT 08/19: Pt. is a cooperative 68 y.o. F who presents w/poor mobilty, LE weakness and decreased balance; she will need continued PT while in hospital working on her strength and balance for functional activity; pt. may need f/u PT after hospital d/c at SNF to gain her independent status back. Recommned PT 1-2x/day while pt. in hospital. 08/21:Pt. seen x total of 17 min. for functional activity: pt. performs Tinetti test for balance and walking; she demonstrates average risk for falling w/score of 23/28; she transfers OOB w/cga; she amb. using FWW x 15 ft. to bathroom and sits to void; pt. transfers from commode and performs post-toileting hygiene independently; pt. then amb. into hallway x 80 ft. using FWW, sba; she returns to room and performs balance activity for narrow base of support standing, and stepping in full moapa; she lowers to sitting and then performs sit to stand w/FWW, sba; she steps to b/s and lowers to sitting; pt. able to lift LE's into bed w/no assist, requiring increased timing. Pt. then instructed in supine LE ex. for ankle pumps, heel slides, SLR's, hip Ab., glute sets, bridges, and knee extensions for sitting, marches for sitting and mini squats. Pt. voices understanding ex. as instructed and has no questions after PT session. She is provided w/written handout for ex. program; pt. has her call light in reach and has no voiced concerns after PT session. She is willing to transfer to SNF to continue working on strengthening and balance activity after d/c from hospital. 08/22:Pt. treated today for gait training, which she tolerated well. Inclusion of dynamic tasks such as turning and going up/down stairs to prepare her for D/C either to SNF or to her car, pending a safe discharge plan with her sister. Patient is improving in her bed mobility and can now independently get in/out of bed with SBA once standing. She expressed quickly fatiguing towards end of session. Pt. left with call light and lunch tray sitting in bedside recliner with no needs reported. She will benefit from skilled PT to address remaining ms strength, endurance, gait, and balance deficits to decrease risk of falls and improve functional independence. Plan is transfer to SNF 08/21. But a new problem in that the patient has not communicated clearly what her discharge from this SNF will look like. She states that she is going to get back in her car and drive back to [facility] where her sister lives. When [employer] called her sister, sister did not know anything about what was going on. And could not confirm that discharge plan. So right now we are holding pattern with a senior living facility. They do not want to take her unless there is a safe discharge. And the patient needed to communicate with her sister. This was done and the patient has decided [place] stay [place] the [place] Plan is in #1. she is still weak enough that PT wants to work with her for endurance. They will let me know when she is safe to be discharged. Safe tomorrow. Qualifiers: Hypotension type: unspecified hypotension type Qualified Code(s): I95.9 - Hypotension, unspecified (3) Hypokalemia Impression: Resolved. She started at 1.6 and 1 several potassium rider she was 4.1 - 4.0 for last 3 days (4) Dehydration with hyponatremia Impression: Resolved. Causing acute kidney injury as well. Creatinine started at 1.5>1.1>0.9 today. Plan: no more labs. (5) UTI due to Klebsiella species Impression: This urinalysis is from August 15. That was her visit to the ED. Resistant to ampicillin, nitrofurantoin, and Pipracil and. Sensitive to all others. Blood cultures from August 18 are negative Plan: On ceftriaxone. Day #4. Change to Keflex again s/p Day #3. watch for diarrhea. Plan is total of 7 days of abx. So can be off Keflex by 08/23 (6) Diarrhea due to drug Impression: Resolved. Most likely from antibiotics. She is C. difficile negative. She continued to have a copious, copious amount of stool that is liquid, and she could not get to the bedside commode in time. That was on 08/19. Better since then. She is currently on Imodium 8 times daily as needed. Plan: Increased Imodium to every 2 hours max 8 a day Questran powder 3 times daily did not need to be added. (7) Candidiasis of genitalia in female Impression: Improving. Involves that pudendum, labia, vagina. Some intertriginous groin fold. But then it extends down into the skin of her thigh with 6 cm of thigh skin involved as they abut each other. All of the superficial skin has been removed and it i s just raw. Showered 08/19 and 10/6 Plan:Nystatin topical continues. Diflucan added 08/20 (8) Iron deficiency anemia Impression: anemia panel Laboratory Tests 08/19/18 08/19/18 08/19/18 14:35 14:35 14:39 Iron 21 L TIBC 199 L % Saturation 11 L Transferrin 142 L Ferritin 19.0 Lactate Dehydrogenase 126 Vitamin B12 1386 H When she returns to outpatient status will need EGD and colonoscopy. She denies black stool, weight change. The diarrhea started w the abx for her UTI this last week. Started on iron supplement w multivit (9) Abnormal EKG Impression: Resolved. Now that her potassium is normal, rechecked EKG to see what baseline looks like and to make sure her T wave changes have resolved. they did. (10) Poor hygiene Impression: Resolved Shower 08/19 and 08/23 (11) Hyperchloremia Impression: Still at 117 on 08/22. Today 113. So going in the right direction as her fluid status has stabilized. most likely due to diarrhea. Her K and Na are now nml. Stopped IVF. She has adequate oral intake. (2) Hypotension Qualifiers: Qualified Code(s): I95.9 - Hypotension, unspecified
[2018-08-24] MEDS: MULTIVITAMIN W/MINERALS TABLET PO SCH (10:45)
[2018-08-24] MEDS: FERROUS GLUCONATE 324 MG TABLET PO SCH (10:45)
[2018-08-24] MEDS: FLUCONAZOLE 100 MG TABLET PO SCH (10:45)
[2018-08-24] MEDS: SACCHAROMYCES BOULARDII 250 MG CAPSULE PO SCH ×2 (10:46→16:50)
[2018-08-24] MEDS: ACETAMINOPHEN 325 MG TABLET PO PRN ×2 (10:47→20:18)
[2018-08-24] MEDS: POLYETHYLENE GLYCOL 3350 17 GM PACKET PO SCH (10:48)
[2018-08-24] MEDS: NYSTATIN POWDER 15 GM TOP SCH ×2 (12:45→20:19)
[2018-08-24] MEDS ORDERED: CALCIUM CARBONATE CHEW 500 MG TABLET PO PRN (19:26)
[2018-08-24] MEDS: FLUoxetine 10 MG CAPSULE PO SCH (20:18)
[2018-08-24] MEDS ORDERED: CALCIUM CARBONATE CHEW 500 MG TABLET PO SCH (21:00)
[2018-08-25] MEDS: SODIUM CHLORIDE FLUSH 0.9% 10 ML SYRINGE IVP SCH ×2 (00:53→08:22)
[2018-08-25] MEDS: ONDANSETRON ODT 4 MG TABLET TL PRN (05:49)
--- NOTE | 2018-08-25 06:51 | Discharge Plan ---
Discharge Plan Disposition: 01 Home, Self Care Condition: Good Prescriptions: Nystatin [Nystop] 1 applic TOP BID #2 bottle Diet: Regular Activity Restrictions: Activity as Tolerated Shower Restrictions: No Driving Restrictions: No Assistance Devices: Walker (front wheeled walker) Instruction Topics: Nystatin skin cream or ointment, Nystatin topical powder, Vaginitis Prevent, UTI Additional Instructions or Follow Up instructions: You were admitted into the hospital because of severe dehydration, malnourished, and having a terrible infection with yeast vaginitis involving the skin around your vagina and labia. You had also developed diarrhea secondary to the Keflex you were given for urinary tract infection. All of your acute medical problems of the vaginitis, urinary tract infection and dehydration have resolved with IV fluids, IV antibiotics. The illness left you very weak and tired. We did try to place you in a half-way for rehab but your insurance company had not authorized it. Physical therapy has been working with you and your are able to walk the hallways in the hospital now. As such your are being discharged. Social work department has been working with you in finding you a new home with subsidized housing here in [place]. The paperwork has been filed, and you may be able to find an apartment in the near future. Please make sure that you keep the phone number of the social work department available so you can keep touch with them and they can keep touch with you about when you could possibly move in. Please see your primary care provider, Patti Dean, in the next 1-2 weeks. The only medicine that is new is nystatin cream to be applied to the residual skin infection in your upper thighs. Do that for 1 more week. Make sure that you take a shower at least every other day in the area that has yeast needs to be kept clean and dry. Follow-Up Care: Outpatient Rehab - PT No Smoking: If you smoke, Please STOP! Call for help. Follow-up with: Patti Dean ARNP [Provider Admit Priv/Credential] -
[2018-08-25] MEDS: POLYETHYLENE GLYCOL 3350 17 GM PACKET PO SCH (08:22)
[2018-08-25] MEDS: MULTIVITAMIN W/MINERALS TABLET PO SCH (08:22)
[2018-08-25] MEDS: SACCHAROMYCES BOULARDII 250 MG CAPSULE PO SCH (08:23)
[2018-08-25] MEDS: FERROUS GLUCONATE 324 MG TABLET PO SCH (08:23)
[2018-08-25] MEDS: FLUCONAZOLE 100 MG TABLET PO SCH (08:23)
[2018-08-25 08:27] VITALS: BP 123/65
[2018-08-25] MEDS: NYSTATIN POWDER 15 GM TOP SCH (08:31)
--- NOTE | 2018-08-25 19:28 | DISCHARGE SUMMARY ---
Physician: Lexie Mendze MD DATE OF ADMISSION: 08/18/2018 DATE OF DISCHARGE: 08/25/2018 DISCHARGE DIAGNOSES: 1. Dehydration with hyponatremia. 2. Hypokalemia. 3. Urinary tract infection with Klebsiella. 4. Generalized weakness. 5. Diarrhea due to drug. 6. Candidiasis of female genitalia. 7. Iron-deficiency anemia. 8. Abnormal EKG. 9. Poor hygiene. 10. Homeless. 11. Hyperchloremia. 12. Hypotension. DISCHARGE MEDICATIONS: 1. Prozac 60 mg daily. 2. Omeprazole 20 mg daily. 3. Zantac 150 mg p.o. b.i.d. 4. Vitamin B complex daily. 5. Multivitamin with minerals daily. 6. Nystatin topical cream b.i.d. for the next 7-10 days. PRINCIPAL PROCEDURES: 1. Blood cultures, no growth after 5 days. 2. Methicillin-resistant Staphylococcus aureus negative. 3. Clostridium difficile negative in stool. 4. Preliminary EKG with severe hypokalemia showed flattened T waves, repeat EKG showed normalization of T waves. HOSPITAL COURSE: The patient is a 68-year-old white female who has osteoarthritis, GERD, depression and anxiety with a history of kidney stones and colonic polyps. She has lived on [facility] about 2012 and circumstances are gradually deteriorated to the point that she is now homeless, [place] woods in her car. Ten days ago, she developed redness and itching of her groin area and tried home medi cations for this. Two days ago, she developed dysuria and came to the emergency room for complaints of dysuria and this rash. The emergency room physician noted that it was a horrible case of candidia sis, with the patient with poor hygiene. Urine cultures were done and she was sent home with p.o. an tibiotics and cream. Over the next 2 days, she felt no better, was getting progressively weaker and had developed profound diarrhea that would not stop. She was having up to 15 loose bowel movements a day. She was incontinent in her car. She was brought to the emergency room and needed help to even get out of her car. In the emergency room, she was hypotensive to 88 systolic, having copious diarr hea in the emergency room. By now the urine culture from 2 days previously was growing Klebsiella. She was afebrile and oxygenating normally. Her admission sodium was 132 and her admission potassium was 1.7. The patient was brought into the hospital and treated for her hypotension that we attributed to sever e dehydration and hypokalemia. She received numerous K riders to supplement her potassium and finall y became normal on 08/19/2018 to 4.1. On the day of discharge, it was 4.4. Sodium also normalized t o be 141 at its highest and down to 137 at discharge. With her diarrhea, her chloride started at 104 and went as high as 122. By the time of discharge, chloride was still mildly abnormal at 113, but B UN and creatinine were 10.9. Anemia was noted and anemia panel showed to have iron-deficiency anemia. I explained to her that she is going to need to have an upper and lower endoscopy in the outpatient setting to find out where sh elbert could be having her iron-deficiency anemia from. Unfortunately, this patient is homeless, has not had access to running water for days and has been in continent of stool. She was very badly smelling. Had horrible hygiene and as such received 2 or 3 s howers while in the hospital and hygiene improved tremendously. It also helped with wound healing fr om the thigh and vaginitis. Her yeast vaginitis had extended to the labia, up to the front of her pu dendum, into the perineum and around her anus. It had also crept down the sides of her thighs from h er intertriginous fold leaving the skin raw and uncovered with regard to skin. After shower, she was clean and dry. We started using nystatin cream and powder. She had improved tremendously by the ti me of discharge, but she will need at least another 7-10 days of Nystatin cream for appropriate heali ng to occur. She also received Diflucan during her stay. To complete her treatment for UTI, she rec eived Rocephin and then was transitioned back to Keflex and has completed 8 days of antibiotic therap y for a UTI. Social situation was addressed because this patient was homeless. She has been evaluated for certain benefits and at the time of this dictation, it is hopefully expected that she will [facility] in the next 2-3 weeks once her benefits come in. She was also initially evaluated to go to a alf facility. However, she stayed in the hospital long e nough as we waited insurance authorization that PT worked with her daily and at the day of discharge, was able to walk 300 feet. She is eating between 80-100% of her food. Weight is 80 kg at discharge . She came in at 72.5 kg. PHYSICAL EXAMINATION ON DISCHARGE: VITAL SIGNS: Temperature of 36.6, pulse 84, blood pressure 123/65, respirations 16, 96% on room air. GENERAL: She is an alert, oriented, white female who looks her stated age, poor dentition. Normal f acial symmetry. [place], moist oral mucosa. No evidence of dehydration. NECK: Supple without adenopathy. LUNGS: Clear to auscultation and percussion. HEART: PMI is normally placed with a regular rate and rhythm. ABDOMEN: Soft, nontender, normal bowel sounds. No masses palpable. SKIN: All of the Barbara rash has completely resolved in the pudendal, labial, and introitus areas. What she has left with is hyperpigmentation as skin has scarred down and healed in the upper thighs as it touches each other. She had a small 3 x 6 cm area of redness that is slowly healing. PLAN: She will need to be referred for outpatient physical therapy. She will use a front-wheeled wa lker. Again, we will need to be referred for colonoscopy and upper endoscopy for followup of iron-de ficiency anemia. Greater than 30 minutes was spent coordinating discharge. TD: 08/25/2018 14:24
== END 2018-08-25 12:27 | disposition home or self-care (01) | DRG 690 ==
LOC: ED 06:22 → ICU 09:10 → UNDOADMIN 09:10 → MS2 08-19 14:07 → ICU 08-19 14:07 → UNDODISIN 08-25 12:27
PROVIDERS: ADMIT Internal Medicine; ATTEND Specialist
DX: N39.0 Urinary tract infection, site not specified (principal); N28.9 Disorder of kidney and ureter, unspecified; E83.52 Hypercalcemia; A41.9 Sepsis, unspecified organism; N17.9 Acute kidney failure, unspecified; K52.1 Toxic gastroenteritis and colitis; E87.1 Hypo-osmolality and hyponatremia; E86.0 Dehydration; E87.6 Hypokalemia; E87.8 Other disorders of electrolyte and fluid balance, not elsewhere classified; Z91.81 History of falling; B96.1 Klebsiella pneumoniae [K. pneumoniae] as the cause of diseases classified elsewhere; I95.9 Hypotension, unspecified; B37.3 Candidiasis of vulva and vagina; B37.2 Candidiasis of skin and nail; R15.9 Full incontinence of feces; R53.1 Weakness; R94.31 Abnormal electrocardiogram [ECG] [EKG]; D50.9 Iron deficiency anemia, unspecified; T36.1X5A Adverse effect of cephalosporins and other beta-lactam antibiotics, initial encounter; R46.0 Very low level of personal hygiene; Z59.0 Homelessness; R32 Unspecified urinary incontinence; R35.0 Frequency of micturition; R26.81 Unsteadiness on feet; K21.9 Gastro-esophageal reflux disease without esophagitis; F32.9 Major depressive disorder, single episode, unspecified; F41.9 Anxiety disorder, unspecified; M19.90 Unspecified osteoarthritis, unspecified site
CPT/HCPCS: 36415; 80048; 80053; 81001; 81003; 82553; 82607; 82728; 83540; 83605; 83615; 83690; 83735; 83880; 84100; 84132; 84466; 84484; 85025; 85044; 85610; 87040; 87070; 87086; 87150; 87205; 87493; 90686; 93005; 96361; 96365; 96367; 99284; 99285

== ENCOUNTER 2018-09-15 14:06 | Outpatient (CLI) | payer MEDICARE ==
[2018-09-15 17:39] LABS: CALCIUM 8.9 mg/dL (8.5-10.3); CREATININE 1.1 mg/dL (0.4-1.0)
== END 2018-09-15 14:07 | disposition home or self-care (01) ==
LOC: LAB.S 14:06
PROVIDERS: ATTEND Nurse Practitioner Family
DX: N18.3 Chronic kidney disease, stage 3 (moderate) (principal); D50.9 Iron deficiency anemia, unspecified
CPT/HCPCS: 36415; 80048; 82728

== ENCOUNTER 2018-11-03 13:09 | Outpatient (CLI) | payer MEDICARE, MEDICAID ==
--- NOTE | 2018-11-04 08:17 | Mammography Report ---
Reason: SCREENING MAMMO Procedure Date: 11/03/2018 Accession Number: [id number] / [id number] Procedure: RAJANI - Screening Mammo w/Asher CPT Code: FULL RESULT: EXAM: Screening Mammo w/Asher DATE: 11/03/2018 2:38 PM CLINICAL HISTORY: Screening. TECHNIQUE: Bilateral CC and MLO views were obtained. COMPARISON: 04/01/2014 through 11/17/2009 FINDINGS: The breasts demonstrate scattered fibroglandular densities bilaterally. Bilateral breasts: There are no suspicious masses, calcifications or areas of distortion. IMPRESSION: Negative examination RECOMMENDATION: Routine annual screening unless otherwise clinically indicated. BI-RADS CATEGORY 1: Negative STANDARD QUALIFYING STATEMENTS: 1. This examination was not reviewed with the aid of Computer-Aided Detection (CAD). 2. A negative or benign imaging report should not preclude biopsy if clinically suspicious findings are present. 3. Dense breasts may obscure an underlying neoplasm. 4. This examination was reviewed with the aid of 3D breast imaging (tomosynthesis).
== END 2018-11-03 13:10 | disposition home or self-care (01) ==
LOC: DI 13:09
PROVIDERS: ATTEND Nurse Practitioner Family
DX: Z12.31 Encounter for screening mammogram for malignant neoplasm of breast (principal)
CPT/HCPCS: 77063; 77067

== ENCOUNTER 2018-11-24 08:00 | Outpatient (CLI) | payer MEDICARE, MEDICAID ==
[2018-11-24 19:01] LABS: BASOPHILS # (AUTO) 0.1 10^3/uL (0.0-0.1); BASOPHILS % (AUTO) 0.7 %; EOSINOPHILS # (AUTO) 0.2 10^3/uL (0.0-0.7); EOSINOPHILS % (AUTO) 2.7 %; HGB - HEMOGLOBIN 13.4 g/dL (12.0-16.0); LYMPHOCYTES # (AUTO) 1.7 10^3/uL (1.5-3.5); MEAN CORPUSCULAR HEMOGLOBIN 27.7 pg (27.0-31.0); MEAN CORPUSCULAR HGB CONC 32.2 g/dL (32.0-36.0); MEAN PLATELET VOLUME 7.5 fL (7.9-10.8); MONOCYTES # (AUTO) 0.7 10^3/uL (0.0-1.0); MONOCYTES % (AUTO) 7.5 %; NEUTROPHILS # (AUTO) 6.4 10^3/uL (1.5-6.6); NEUTROPHILS % (AUTO) 70.1 %; PLT - PLATELET COUNT 388 10^3/uL (130-450); RED BLOOD COUNT 4.84 10^6/uL (4.20-5.40); RED CELL DISTRIBUTION WIDTH 19.4 % (12.0-15.0); WHITE BLOOD COUNT 9.1 x10^3/uL (4.8-10.8)
[2018-11-24 19:12] LABS: ALBUMIN 4.2 g/dL (3.2-5.5); ALBUMIN/GLOBULIN RATIO 1.4 (1.0-2.2); BILIRUBIN,TOTAL 0.6 mg/dL (0.2-1.0); CALCIUM 9.8 mg/dL (8.5-10.3); CREATININE 1.2 mg/dL (0.4-1.0); TOTAL PROTEIN 7.3 g/dL (6.7-8.2)
== END 2018-11-24 23:59 | disposition home or self-care (01) ==
LOC: LAB.S 08:00
PROVIDERS: ATTEND Nurse Practitioner Family
DX: N18.3 Chronic kidney disease, stage 3 (moderate) (principal); D50.9 Iron deficiency anemia, unspecified
CPT/HCPCS: 36415; 80053; 85025

== ENCOUNTER 2019-03-12 08:00 | Outpatient (CLI) | payer MEDICARE, MEDICAID ==
[2019-03-12 19:26] LABS: BILIRUBIN,URINE NEGATIVE (NEGATIVE); GLUCOSE, URINE (UA) NEGATIVE (NEGATIVE); KETONES,URINE (UA) NEGATIVE (NEGATIVE); LEUKOCYTE ESTERASE, URINE SMALL (NEGATIVE); NITRITE,URINE POSITIVE (NEGATIVE); OCCULT BLOOD,URINE NEGATIVE (NEGATIVE); PROTEIN,URINE TRACE mg/dL (NEGATIVE); UROBILINOGEN,URINE 0.2 (NORMAL) E.U./dL (NORMAL)
[2019-03-12 19:27] LABS: CLARITY,URINE CLEAR (CLEAR)
[2019-03-12 19:42] LABS: BACTERIA,URINE Many /HPF (None Seen); EPITHELIAL CELLS,UR FEW Transitional /HPF (<= Few); RBC,URINE None Seen /HPF (0-5); SQUAMOUS EPITHELIAL CELL,UR NONE SEEN (<= Few)
== END 2019-03-12 23:59 | disposition home or self-care (01) ==
LOC: LAB.R 08:00
PROVIDERS: ATTEND Nurse Practitioner
DX: R39.15 Urgency of urination (principal)
CPT/HCPCS: 81001; 81003; 87086; 87181

== ENCOUNTER 2019-07-28 14:36 | Outpatient (CLI) | payer MEDICARE, MEDICAID ==
[2019-07-28 14:47] LABS: BASOPHILS # (AUTO) 0.1 10^3/uL (0.0-0.1); BASOPHILS % (AUTO) 1.1 %; EOSINOPHILS # (AUTO) 0.7 10^3/uL (0.0-0.7); EOSINOPHILS % (AUTO) 7.2 %; HGB - HEMOGLOBIN 12.8 g/dL (12.0-16.0); LYMPHOCYTES # (AUTO) 2.8 10^3/uL (1.5-3.5); LYMPHOCYTES % (AUTO) 27.4 %; MEAN CORPUSCULAR HEMOGLOBIN 30.9 pg (27.0-31.0); MEAN CORPUSCULAR HGB CONC 32.6 g/dL (32.0-36.0); MEAN CORPUSCULAR VOLUME 94.9 fL (81.0-99.0); MEAN PLATELET VOLUME 8.3 fL (7.9-10.8); MONOCYTES # (AUTO) 0.7 10^3/uL (0.0-1.0); MONOCYTES % (AUTO) 7.3 %; NEUTROPHILS # (AUTO) 5.5 10^3/uL (1.5-6.6); NEUTROPHILS % (AUTO) 55.2 %; PLT - PLATELET COUNT 271 10^3/uL (130-450); RED BLOOD COUNT 4.14 10^6/uL (4.20-5.40); RED CELL DISTRIBUTION WIDTH 14.4 % (12.0-15.0)
[2019-07-28 15:06] LABS: % IRON SATURATION 25 % (20-50); IRON 89 ug/dL (28-170); TOTAL IRON BINDING CAPACITY 350 ug/dL (250-450); TRANSFERRIN 250 mg/dL (192-382)
== END 2019-07-28 14:37 | disposition home or self-care (01) ==
LOC: LAB 14:36
PROVIDERS: ATTEND Nurse Practitioner Family
DX: Z86.2 Personal history of diseases of the blood and blood-forming organs and certain disorders involving the immune mechanism (principal)
CPT/HCPCS: 36415; 82728; 83540; 84466; 85025

== ENCOUNTER 2019-11-04 15:15 | Emergency (ER) | payer MEDICARE, MEDICAID ==
[2019-11-04 15:26] VITALS: BP 147/84
--- NOTE | 2019-11-04 15:30 | ED Physician Documentation ---
PD HPI UPPER EXT INJURY - Stated complaint Stated Complaint: L WRIST INJ - Chief complaint Chief Complaint: Ext Problem - History obtained from History obtained from: Patient - History of Present Illness Location: Left, Wrist Type of injury: Fall (started to fall and struck hand on object as she tried to catch herself. Injured left wrist. Denies other injuries.) Timing - onset: Yesterday Timing - details: Abrupt onset, Still present (has more swelling and bruising today than yesterday.) Worsened by: Moving, Palpating Associated symptoms: Swelling, Discolored (bruising color at wrist and to volar mid forearm. Moderate swelling at wrist.). No: Weakness, Numbness Contributing factors: No: Anticoagulated Similar symptoms before: Has not had sx before Review of Systems Skin: denies: Abrasion (s), Laceration (s) Neurologic: denies: Focal weakness, Numbness, Headache, Head injury PD PAST MEDICAL HISTORY - Past Medical History Cardiovascular: None Respiratory: Other Neuro: None Endocrine/Autoimmune: None GI: GERD, Colon polyps : Kidney stones HEENT: Other Psych: Depression, Anxiety Musculoskeletal: Osteoarthritis Derm: None - Past Surgical History Past Surgical History: Yes General: Colonoscopy, EGD Ortho: Spine surgery - Present Medications Home Medications: Ambulatory Orders Medication Instructions Recorded Confirmed Omeprazole 20 mg PO QDAC 05/27/15 08/18/18 raNITIdine [Zantac] 150 mg PO BID 05/27/15 08/18/18 FLUoxetine [PROzac] 60 mg PO DAILY 08/15/18 08/18/18 Vitamin B Complex 1 tab PO DAILY 08/18/18 08/18/18 Multivitamin W/Minerals [Theragran 1 tab PO DAILYWM tablet 08/25/18 M] Nystatin [Nystop] 1 applic TOP BID #2 bottle 08/25/18 - Allergies Allergies/Adverse Reactions: Allergies Allergy/AdvReac Type Severity Reaction Status Date / Time cefoxitin Allergy Emesis Verified 11/04/19 15:22 - Social History Does the pt smoke?: No Smoking Status: Never smoker Does the pt drink ETOH?: Yes Does the pt have substance abuse?: No - Immunizations Immunizations are current?: Yes - POLST Patient has POLST: No PD ED PE NORMAL - Vitals Vital signs reviewed: Yes - General General: Alert and oriented X 3, No acute distress, Well developed/nourished - HEENT HEENT: Atraumatic - Neck Neck: Supple, no meningeal sign, No bony TTP - Derm Derm: Normal color, Warm and dry - Extremities Extremities: Other (left wrist with swelling and mild dorsal deformity. Moderate to marked swelling. Ecchymotic coloring red/purple at wrist radial and volar, with bruising extending to mid forearm. ) - Neuro Neuro: No motor deficit, No sensory deficit Results - Vitals Vitals: Vital Signs - 24 hr 11/04/19 15:22 Temperature 36.6 C Heart Rate 84 Respiratory 14 Rate Blood Pressure 147/84 H O2 Saturation 96 Oxygen O2 Source [With Activity] Room air O2 Source [Without Activity] Room air O2 Source Room air - Rads (name of study) left wrist Radiology: Prelim report reviewed, EMP read contemporaneously (distal radial impacted fracture with dorsal angulation about 10 degrees. No displacement. ), See rad report Procedures - Splint (location) left wrist Splint applied by: Tech Type of splint: Fiberglass, Short arm (volar and dorsal) Other: Patient tolerated well, No complications, Neurovascular intact, Sling provided PD MEDICAL DECISION MAKING - ED course Complexity details: reviewed results (xray showing fracture with some dorsal angulation. It does appear impacted as well, so will be harder to reduce, and there is a lot of swelling at wrist. The angulation is minor, about 10 degrees, so I think does not need to be reduced. Defer judgement to Ortho follow up, and will be easier when swelling down as well if it is needed. ), considered di fferential (appears likely fracture, and also with swelling and bruising. ), d/w patient Departure - Departure Disposition: 01 Home, Self Care Clinical Impression: Accidental fall Qualifiers: Encounter type: initial encounter Qualified Code(s): W19.XXXA - Unspecified fall, initial encounter Distal radius fracture, left Qualifiers: Encounter type: initial encounter Fracture type: closed Fracture morphology: Colles' Qualified Code(s): S52.532A - Colles' fracture of left radius, initial encounter for closed fracture Condition: Stable Record reviewed to determine appropriate education?: Yes Instructions: ED Fx Colles Wrist No Redu Requ Follow-Up: Estvean Nur MD [Provider Admit Priv/Credential] - Rosie Weaver ARNP [Primary Care Provider] - Comments: Keep the splint on and protected and dry. Call the orthopedic office for follow-up for next week. Ice elevate and rest the wrist often. On follow-up, they will change it to a cast and also decide whether the angulation needs to be straightened out. It will be easier to do and there is less swelling to the area though the degree of angulation at this point may not be enough to need reduction. Discharge Date/Time: 11/04/19 17:01
[2019-11-04] MEDS ORDERED: ACETAMINOPHEN 325 MG TABLET PO STA (15:59)
--- NOTE | 2019-11-04 16:43 | XRAY Report ---
Reason: struck wrist while falling Procedure Date: 11/04/2019 Accession Number: [id number] / [id number] Procedure: XR - Wrist 4 View LT CPT Code: Final Report FULL RESULT: EXAM: LEFT WRIST RADIOGRAPHY EXAM DATE: 11/04/2019 04:19 PM. CLINICAL HISTORY: Fall, pain. COMPARISON: None. TECHNIQUE: 4 views. FINDINGS: Bones: Osteopenia. Impacted transverse fracture of distal radial metaphysis with complete apposition and mild apex for learning. Otherwise unremarkable. Joints: Moderate degenerative changes predominantly at the first CMC level. Soft Tissues: Soft tissue swelling. IMPRESSION: Distal radius fracture. RADIA
== END 2019-11-04 17:01 | disposition home or self-care (01) ==
LOC: ED 15:15
DX: S52.532A Colles' fracture of left radius, initial encounter for closed fracture (principal); W22.8XXA Striking against or struck by other objects, initial encounter
CPT/HCPCS: 73110; 99283; 99284; A9270

== ENCOUNTER 2021-03-09 08:00 | Outpatient (CLI) | payer MEDICARE, MEDICAID ==
[2021-03-09 18:13] LABS: BASOPHILS # (AUTO) 0.1 10^3/uL (0.0-0.1); BASOPHILS % (AUTO) 1.2 %; EOSINOPHILS # (AUTO) 0.4 10^3/uL (0.0-0.7); EOSINOPHILS % (AUTO) 3.8 %; HCT - HEMATOCRIT 41.2 % (37.0-47.0); LYMPHOCYTES # (AUTO) 2.7 10^3/uL (1.5-3.5); LYMPHOCYTES % (AUTO) 27.1 %; MEAN CORPUSCULAR HEMOGLOBIN 28.5 pg (27.0-31.0); MEAN CORPUSCULAR HGB CONC 31.6 g/dL (32.0-36.0); MEAN CORPUSCULAR VOLUME 90.4 fL (81.0-99.0); MEAN PLATELET VOLUME 8.9 fL (7.9-10.8); MONOCYTES # (AUTO) 0.8 10^3/uL (0.0-1.0); NEUTROPHILS # (AUTO) 5.7 10^3/uL (1.5-6.6); NEUTROPHILS % (AUTO) 57.5 %; PLT - PLATELET COUNT 326 10^3/uL (130-450); RED BLOOD COUNT 4.56 10^6/uL (4.20-5.40); RED CELL DISTRIBUTION WIDTH 16.2 % (12.0-15.0); WHITE BLOOD COUNT 9.9 x10^3/uL (4.8-10.8)
[2021-03-09 18:29] LABS: ALBUMIN 3.8 g/dL (3.2-5.5); ALBUMIN/GLOBULIN RATIO 1.2 (1.0-2.2); ALKALINE PHOSPHATASE 66 IU/L (42-121); ALT ALANINE AMINOTRANSFERASE 16 IU/L (10-60); AST ASPARTATE AMINOTRANSFERASE 13 IU/L (10-42); BILIRUBIN,TOTAL 0.5 mg/dL (0.2-1.0); BUN - BLOOD UREA NITROGEN 21 mg/dL (6-20); CALCIUM 9.5 mg/dL (8.5-10.3); CARBON DIOXIDE - CO2 17 mmol/L (21-32); CHLORIDE 112 mmol/L (101-111); CHOLESTEROL 244 mg/dL; CREATININE 1.4 mg/dL (0.4-1.0); GFR - MDRD 37 (>89); GLUCOSE 96 mg/dL (70-100); HDL CHOLESTEROL 61 mg/dL; LDL CHOLESTEROL,CALCULATED 164 mg/dL; LDL/HDL RATIO 2.7 (<4.4); POTASSIUM 3.7 mmol/L (3.5-5.0); SODIUM 140 mmol/L (135-145); TRIGLYCERIDES 96 mg/dL; VLDL CHOLESTEROL 19 mg/dL
[2021-03-09 18:46] LABS: THYROID STIMULATING HORMONE 3.27 uIU/mL (0.34-5.60)
[2021-03-09 19:51] LABS: ESTIMATED AVERAGE GLUCOSE 111 mg/dL (70-100); HEMOGLOBIN A1c% 5.5 % (4.27-6.07)
== END 2021-03-09 23:59 | disposition home or self-care (01) ==
LOC: LAB.WCP 08:00
PROVIDERS: ATTEND Family Medicine
DX: Z79.899 Other long term (current) drug therapy (principal)
CPT/HCPCS: 36415; 80053; 80061; 83036; 83721; 84443; 85025

== ENCOUNTER 2021-05-23 13:52 | Outpatient (CLI) | payer MEDICARE, MEDICAID ==
--- NOTE | 2021-05-23 15:58 | MRI Report ---
PROCEDURE: Lumbar Spine W/O INDICATIONS: LUMBAR BACK PAIN W/RADICULOPATHY TECHNIQUE: Noncontrast sagittal T1 spin echo and T2 fast echo, sagittal STIR, axial T1 and T2 fast spin echo thr ough the lumbar spine. In cases with scoliosis, additional coronal T2 fast spin echo may be performe d. COMPARISON: None. FINDINGS: Image quality: Excellent. Alignment and Curvature: No plain films are available for comparison. Thus, for numbering purposes, 5 lumbar type vertebral bodies will be presumed for the current report. This should be confirmed with plain film correlation prior to any lumbar spinal intervention. There is mild, grade 1 retrolisthesi s of L1 on L2 and L2 on L3. Mild grade 1 anterolisthesis of L4 on L5. Bone Marrow: Marrow is of normal overall signal. No acute vertebral body compression fractures. Mo derate reactive signal within the end plates adjacent to the L4-L5 and L5-S1 intervertebral discs. Mi ld reactive signal within the end but adjacent to the T11-T12, L2-L3, and L3-L4 intervertebral discs. Spinal Cord: Conus medullaris terminates at the upper L2 level. Visualized cord demonstrates normal signal and size. Paraspinous Soft Tissues: No paravertebral masses. T12-L1: Mild disc height loss and desiccation. Mild diffuse disc bulge. Mild facet and ligament flav um hypertrophy. Mild canal stenosis. No foraminal stenosis. L1-L2: Mild disc desiccation and diffuse disc bulge. Mild facet and ligament flavum hypertrophy. M ild epidural lipomatosis. Mild canal stenosis. Mild left foraminal stenosis. No right foraminal steno sis. L2-L3: Mild disc height loss and desiccation. Mild diffuse disc bulge. Mild facet and ligament fla vum hypertrophy. Mild epidural lipomatosis. Mild canal stenosis. Mild bilateral foraminal stenosis. L3-L4: Mild disc height loss and desiccation. Mild diffuse disc bulge. Moderate facet and ligament flavum hypertrophy. Moderate epidural lipomatosis. Moderate to severe canal stenosis. Moderate to sev ere left and moderate right foraminal stenosis. Mild left L3 nerve root compression L4-L5: Moderate disc height loss and desiccation. Moderate diffuse disc bulge. Moderate facet and l igament flavum hypertrophy. Moderate epidural lipomatosis. Severe canal stenosis. Severe bilateral fo raminal stenosis with bilateral L4 nerve root compression. L5-S1: Severe disc height loss and desiccation. Mild diffuse disc bulge with superimposed small lef t posterolateral disc extrusion which extends inferiorly within the left lateral recess.. Moderate fa cet and ligament flavum hypertrophy. Moderate epidural lipomatosis. Moderate canal stenosis. Moderate bilateral foraminal stenosis. IMPRESSION: 1. Multilevel degenerative disc and facet disease, in addition to epidural lipomatosis and ligamentum flavum hypertrophy. 2. Multilevel canal stenoses, worst at L3-L4 and L4-L5 as described above. Next line 3. Multilevel foraminal stenoses, worst at L3-L4 and L4-L5 where there is associated intraforaminal n erve root compression as described above. Recommend correlation with clinical symptoms to ascertain r elevance of these findings. 4. Five lumbar type vertebral bodies were presumed for the purposes of the current report. Correlati on with plainfilms for numbering purposes is recommended prior to any lumbar spinal intervention. Reviewed by: Shane Ma MD on 05/23/2021 3:56 PM PDT Approved by: Shane Ma MD on 05/23/2021 3:56 PM PDT Station ID: [id number]
== END 2021-05-23 13:53 | disposition home or self-care (01) ==
LOC: DI 13:52
PROVIDERS: ATTEND Nurse Practitioner Family
DX: M48.061 Spinal stenosis, lumbar region without neurogenic claudication (principal); M51.37 Other intervertebral disc degeneration, lumbosacral region; M51.27 Other intervertebral disc displacement, lumbosacral region; M47.817 Spondylosis without myelopathy or radiculopathy, lumbosacral region; M48.07 Spinal stenosis, lumbosacral region; M51.16 Intervertebral disc disorders with radiculopathy, lumbar region; M47.26 Other spondylosis with radiculopathy, lumbar region

== ENCOUNTER 2021-06-30 12:44 | Outpatient (CLI) | payer MEDICARE, MEDICAID ==
[2021-06-30 14:23] LABS: CALCIUM 9.6 mg/dL (8.5-10.3); CREATININE 1.3 mg/dL (0.4-1.0); POTASSIUM 4.4 mmol/L (3.5-5.0)
--- NOTE | 2021-07-03 16:38 | Mammography Report ---
BILATERAL DIGITAL SCREENING MAMMOGRAM 3D/2D: 06/30/2021 CLINICAL: Routine screening. Comparison is made to exams dated: 11/03/2018 mammogram, 04/01/2014 mammogram, and 11/06/2011 mammogr am - [facility]. The tissue of both breasts is predominantly fatty. No significant masses, calcifications, or other findings are seen in either breast. There has been no significant interval change. IMPRESSION: NEGATIVE There is no mammographic evidence of malignancy. A 1 year screening mammogram is recommended. This exam was interpreted at Station ID: [id number]. NOTE: For mammograms, a report in lay terms will be sent to the patient. Approximately 15% of breast malignancies will not be visualized mammographically. In the management of a palpable breast mass, a negative mammogram must not discourage biopsy of a clinically suspicious lesion. Electronically Signed By: Yusuf Agarwal M.D., jr/rakeshrad:06/30/2021 15:59:32 ACR BI-RADS Category 1: Negative 3341F PARENCHYMAL PATTERN: (F) - The breast(s) demonstrate(s) diffuse fatty replacement. BI-RADS CATEGORY: (1) - 1 RECOMMENDATION: (ANNUAL) - Recommend routine annual screening mammography. [id number] 1 year screening LATERALITY: (B)
== END 2021-06-30 12:45 | disposition home or self-care (01) ==
LOC: DI 12:44
DX: Z12.31 Encounter for screening mammogram for malignant neoplasm of breast (principal); N18.30 Chronic kidney disease, stage 3 unspecified
CPT/HCPCS: 36415; 80048

== ENCOUNTER 2021-09-28 12:32 | Outpatient (CLI) | payer MEDICARE, MEDICAID ==
--- NOTE | 2021-09-28 16:18 | DEXA Report ---
PROCEDURE: Dexa Spine and/or Hip INDICATIONS: POST MENOPAUSAL TECHNIQUE: Dual energy x-ray absorptiometry (DXA) was performed on a Outitude System. Regions measur ed are the AP Spine, femoral neck, and if needed forearm. COMPARISON: None. FINDINGS: Lumbar Spine: Bone Mineral Density 1.355 g/cm/cm,T score 1.5, normal Left Femoral Neck: Bone Mineral Density 0.861 g/cm/cm, T score -1.2, osteopenia (T score greater or equal to -1.0: NORMAL) (T score from -1.1 to -2.4: OSTEOPENIA) (T score less than or equal to -2.5 to: OSTEOPOROSIS) Impression: Osteopenia of the left femoral neck. Patients with diagnosis of osteoporosis or osteopenia should have regular bone mineral density assess ment. For those eligible for Medicare, routine testing is allowed once every 2 years. Testing frequ ency can be increased for patients who have rapidly progressing disease or for those who are receivin g medical therapy to restore bone mass. Reviewed by: Velasquez Livingston MD on 09/28/2021 4:17 PM PST Approved by: Velasquez Livingston MD on 09/28/2021 4:17 PM PST Station ID: [id number]
== END 2021-09-28 12:33 | disposition home or self-care (01) ==
LOC: DI 12:32
PROVIDERS: ATTEND Family Medicine
DX: M85.88 Other specified disorders of bone density and structure, other site (principal); Z78.0 Asymptomatic menopausal state

== ENCOUNTER 2021-11-27 13:30 | Outpatient (CLI) | payer MEDICARE, MEDICAID ==
[2021-11-27 13:57] LABS: BASOPHILS # (AUTO) 0.1 10^3/uL (0.0-0.1); BASOPHILS % (AUTO) 1.2 %; EOSINOPHILS # (AUTO) 0.3 10^3/uL (0.0-0.7); EOSINOPHILS % (AUTO) 2.8 %; HCT - HEMATOCRIT 43.2 % (37.0-47.0); HGB - HEMOGLOBIN 13.8 g/dL (12.0-16.0); LYMPHOCYTES # (AUTO) 2.9 10^3/uL (1.5-3.5); MEAN CORPUSCULAR HEMOGLOBIN 28.9 pg (27.0-31.0); MEAN CORPUSCULAR HGB CONC 31.9 g/dL (32.0-36.0); MEAN CORPUSCULAR VOLUME 90.6 fL (81.0-99.0); MEAN PLATELET VOLUME 8.7 fL (7.9-10.8); MONOCYTES # (AUTO) 0.7 10^3/uL (0.0-1.0); MONOCYTES % (AUTO) 6.9 %; NEUTROPHILS # (AUTO) 5.6 10^3/uL (1.5-6.6); NEUTROPHILS % (AUTO) 57.1 %; PLT - PLATELET COUNT 268 10^3/uL (130-450); RED BLOOD COUNT 4.77 10^6/uL (4.20-5.40); RED CELL DISTRIBUTION WIDTH 15.9 % (12.0-15.0); WHITE BLOOD COUNT 9.7 x10^3/uL (4.8-10.8)
[2021-11-27 14:14] LABS: CALCIUM 9.6 mg/dL (8.5-10.3); CREATININE 1.8 mg/dL (0.4-1.0); POTASSIUM 4.5 mmol/L (3.5-5.0)
[2021-11-27 23:17] LABS: ESTIMATED AVERAGE GLUCOSE 114 mg/dL (70-100); HEMOGLOBIN A1c% 5.6 % (4.27-6.07)
== END 2021-11-27 13:31 | disposition home or self-care (01) ==
LOC: LAB 13:30
DX: Z01.818 Encounter for other preprocedural examination (principal); R73.9 Hyperglycemia, unspecified
CPT/HCPCS: 36415; 80048; 83036; 85025; 93005

== ENCOUNTER 2022-01-11 13:11 | Outpatient (CLI) | payer MEDICARE, MEDICAID ==
[2022-01-11 18:52] LABS: BASOPHILS # (AUTO) 0.1 10^3/uL (0.0-0.1); BASOPHILS % (AUTO) 1.2 %; EOSINOPHILS # (AUTO) 0.4 10^3/uL (0.0-0.7); EOSINOPHILS % (AUTO) 3.1 %; HCT - HEMATOCRIT 40.7 % (37.0-47.0); HGB - HEMOGLOBIN 12.8 g/dL (12.0-16.0); LYMPHOCYTES # (AUTO) 3.1 10^3/uL (1.5-3.5); LYMPHOCYTES % (AUTO) 27.5 %; MEAN CORPUSCULAR HEMOGLOBIN 29.1 pg (27.0-31.0); MEAN CORPUSCULAR HGB CONC 31.4 g/dL (32.0-36.0); MEAN CORPUSCULAR VOLUME 92.5 fL (81.0-99.0); MEAN PLATELET VOLUME 9.1 fL (7.9-10.8); MONOCYTES # (AUTO) 0.9 10^3/uL (0.0-1.0); MONOCYTES % (AUTO) 7.8 %; NEUTROPHILS # (AUTO) 6.6 10^3/uL (1.5-6.6); NEUTROPHILS % (AUTO) 58.5 %; PLT - PLATELET COUNT 335 10^3/uL (130-450); RED CELL DISTRIBUTION WIDTH 15.8 % (12.0-15.0); WHITE BLOOD COUNT 11.3 x10^3/uL (4.8-10.8)
[2022-01-11 19:11] LABS: ALBUMIN 4.2 g/dL (3.2-5.5); ALBUMIN/GLOBULIN RATIO 1.4 (1.0-2.2); ALKALINE PHOSPHATASE 70 IU/L (42-121); ALT ALANINE AMINOTRANSFERASE 17 IU/L (10-60); AST ASPARTATE AMINOTRANSFERASE 13 IU/L (10-42); BILIRUBIN,TOTAL 0.5 mg/dL (0.2-1.0); BUN - BLOOD UREA NITROGEN 21 mg/dL (6-20); CALCIUM 9.7 mg/dL (8.5-10.3); CARBON DIOXIDE - CO2 17 mmol/L (21-32); CHLORIDE 111 mmol/L (101-111); CHOL/HDL RATIO 4.5 (<4.4); CHOLESTEROL 270 mg/dL; CREATININE 1.5 mg/dL (0.4-1.0); GFR - MDRD 34 (>89); GLUCOSE 99 mg/dL (70-100); HDL CHOLESTEROL 60 mg/dL; LDL CHOLESTEROL,CALCULATED 187 mg/dL; LDL/HDL RATIO 3.1 (<4.4); POTASSIUM 4.3 mmol/L (3.5-5.0); SODIUM 139 mmol/L (135-145); TOTAL PROTEIN 7.2 g/dL (6.7-8.2); TRIGLYCERIDES 114 mg/dL; VLDL CHOLESTEROL 23 mg/dL
[2022-01-11 19:19] LABS: THYROID STIMULATING HORMONE 3.07 uIU/mL (0.34-5.60)
[2022-01-11 19:25] LABS: CREATININE,URINE < 13.0 mg/dL; SODIUM, URINE < 12.0 mmol/L
[2022-01-11 19:56] LABS: ESTIMATED AVERAGE GLUCOSE 108 mg/dL (70-100); HEMOGLOBIN A1c% 5.4 % (4.27-6.07)
== END 2022-01-11 13:12 | disposition home or self-care (01) ==
LOC: LAB.N 13:11
PROVIDERS: ATTEND Family Medicine
DX: R73.01 Impaired fasting glucose (principal); N17.9 Acute kidney failure, unspecified; Z79.899 Other long term (current) drug therapy
CPT/HCPCS: 36415; 80053; 80061; 82570; 83036; 83721; 84300; 84443; 85025

== ENCOUNTER 2022-01-26 08:00 | Outpatient (CLI) | payer MEDICARE, MEDICAID ==
[2022-01-26 17:59] LABS: BILIRUBIN,URINE NEGATIVE (NEGATIVE); GLUCOSE, URINE (UA) NEGATIVE (NEGATIVE); KETONES,URINE (UA) NEGATIVE (NEGATIVE); LEUKOCYTE ESTERASE, URINE MODERATE (NEGATIVE); NITRITE,URINE POSITIVE (NEGATIVE); OCCULT BLOOD,URINE NEGATIVE (NEGATIVE); PH,URINE 6.5 PH (5.0-7.5); PROTEIN,URINE NEGATIVE (NEGATIVE); UROBILINOGEN,URINE 0.2 (NORMAL) E.U./dL (NORMAL)
[2022-01-26 18:04] LABS: CLARITY,URINE HAZY (CLEAR)
[2022-01-26 19:06] LABS: BACTERIA,URINE Many /HPF (None Seen); RBC,URINE 0-5 /HPF (0-5); SQUAMOUS EPITHELIAL CELL,UR FEW Squamous (<= Few)
== END 2022-01-26 23:59 | disposition home or self-care (01) ==
LOC: LAB 08:00
PROVIDERS: ATTEND Nurse Practitioner
DX: R32 Unspecified urinary incontinence (principal)
CPT/HCPCS: 81001; 87086; 87181

== ENCOUNTER 2022-02-01 00:15 | Outpatient (CLI) | payer MEDICARE, MEDICAID | END 2022-02-01 00:16 | disposition critical access hospital (66) | LOC: EMS 00:15 | DX: N93.9 Abnormal uterine and vaginal bleeding, unspecified (principal); K62.5 Hemorrhage of anus and rectum; R53.1 Weakness; R42 Dizziness and giddiness; R53.83 Other fatigue; I95.9 Hypotension, unspecified | CPT/HCPCS: A0425; A0427 ==

== ENCOUNTER 2022-03-05 13:45 | Outpatient (CLI) | payer MEDICARE, MEDICAID ==
[2022-03-05 18:23] LABS: BASOPHILS # (AUTO) 0.1 10^3/uL (0.0-0.1); BASOPHILS % (AUTO) 1.6 %; EOSINOPHILS # (AUTO) 0.4 10^3/uL (0.0-0.7); EOSINOPHILS % (AUTO) 4.5 %; HCT - HEMATOCRIT 36.1 % (37.0-47.0); HGB - HEMOGLOBIN 11.1 g/dL (12.0-16.0); LYMPHOCYTES # (AUTO) 2.2 10^3/uL (1.5-3.5); LYMPHOCYTES % (AUTO) 27.4 %; MEAN CORPUSCULAR HEMOGLOBIN 28.1 pg (27.0-31.0); MEAN CORPUSCULAR HGB CONC 30.7 g/dL (32.0-36.0); MEAN CORPUSCULAR VOLUME 91.4 fL (81.0-99.0); MEAN PLATELET VOLUME 8.7 fL (7.9-10.8); MONOCYTES # (AUTO) 0.7 10^3/uL (0.0-1.0); MONOCYTES % (AUTO) 8.4 %; NEUTROPHILS # (AUTO) 4.6 10^3/uL (1.5-6.6); NEUTROPHILS % (AUTO) 57.2 %; PLT - PLATELET COUNT 369 10^3/uL (130-450); RED BLOOD COUNT 3.95 10^6/uL (4.20-5.40); RED CELL DISTRIBUTION WIDTH 15.9 % (12.0-15.0)
[2022-03-05 18:30] LABS: ALBUMIN 3.8 g/dL (3.2-5.5); ALBUMIN/GLOBULIN RATIO 1.2 (1.0-2.2); BILIRUBIN,TOTAL 0.4 mg/dL (0.2-1.0); CALCIUM 9.1 mg/dL (8.5-10.3); TOTAL PROTEIN 6.9 g/dL (6.7-8.2)
== END 2022-03-05 13:46 | disposition home or self-care (01) ==
LOC: LAB.N 13:45
PROVIDERS: ATTEND Nurse Practitioner
DX: K92.2 Gastrointestinal hemorrhage, unspecified (principal); N18.32 Chronic kidney disease, stage 3b
CPT/HCPCS: 36415; 80053; 82728; 83540; 84466; 85025

== ENCOUNTER 2022-04-13 14:37 | Outpatient (CLI) | payer MEDICARE, MEDICAID ==
--- NOTE | 2022-04-13 16:23 | XRAY Report ---
PROCEDURE: Wrist 3 View LT INDICATIONS: WRIST JOINT PAIN, LEFT TECHNIQUE: 3 views of the wrist were acquired. COMPARISON: X-ray wrist 11/04/2019 FINDINGS: Bones: No acute fractures or dislocations. No suspicious bony lesions. Radiocarpal and first CMC d egenerative narrowing present. There is an appearance of a old distal radial fracture. Soft tissues: No suspicious soft tissue calcifications. IMPRESSION: No visualized acute fracture or dislocation. However, occult injury cannot be excluded. Recommend bryan rt interval imaging follow-up in 7-10 days as clinically indicated for additional evaluation. Radiocarpal and first CMC arthritic change. Reviewed by: Kayla Wright MD on 04/13/2022 4:22 PM PDT Approved by: Kayla Wright MD on 04/13/2022 4:22 PM PDT Station ID: [id number]
--- NOTE | 2022-04-13 16:26 | XRAY Report ---
PROCEDURE: Knee 4 View LT INDICATIONS: KNEE PAIN, LEFT TECHNIQUE: 4 views of the x-ray knee 05/30/2015 knee(s) were acquired. COMPARISON: None. FINDINGS: Bones: No fractures or dislocations. No suspicious bony lesions. Medial knee arthroplasty is prese nt. Hardware is intact without evidence of hardware fracture or periprosthetic loosening. Moderate la teral and patellofemoral compartment arthritic narrowing is present. There is a fracture through the inferior lateral third of the patella with minimal displacement. Soft tissues: Mild joint effusion. No suspicious soft tissue calcifications. IMPRESSION: Mildly displaced patellar fracture as above. Reviewed by: Kayla Wright MD on 04/13/2022 4:25 PM PDT Approved by: Kayla Wright MD on 04/13/2022 4:25 PM PDT Station ID: [id number]
--- NOTE | 2022-04-13 19:25 | XRAY Report ---
PROCEDURE: Elbow 2 View LT, x-ray INDICATIONS: ELBOW PAIN, LEFT TECHNIQUE: 2 views of the elbow were acquired. COMPARISON: None FINDINGS: Bones: No fractures or dislocations. No suspicious bony lesions. Marginal osteophytes noted associ ated with the radial head. Generalized decreased osseous mineralization present. Soft tissues: No elbow joint effusion. No suspicious soft tissue calcifications. IMPRESSION: Degenerative osteoarthritic changes without fracture or foreign body Osteopenia Reviewed by: Bairon Jackson MD on 04/13/2022 6:24 PM AKDT Approved by: Bairon Jackson MD on 04/13/2022 6:24 PM AKDT Station ID: [id number]
== END 2022-04-13 14:38 | disposition home or self-care (01) ==
LOC: DI.N 14:37
PROVIDERS: ATTEND Nurse Practitioner
DX: M19.022 Primary osteoarthritis, left elbow (principal); S82.092A Other fracture of left patella, initial encounter for closed fracture; M25.532 Pain in left wrist

== ENCOUNTER 2022-04-24 14:05 | Outpatient (CLI) | payer MEDICARE, MEDICAID ==
--- NOTE | 2022-04-25 10:38 | XRAY Report ---
PROCEDURE: Wrist 3 View LT INDICATIONS: L WRIST PX TECHNIQUE: 3 views of the wrist were acquired. COMPARISON: 04/13/2022, 11/04/2019 FINDINGS: Bones: No fractures or dislocations. Moderate osteoarthritic changes throughout left wrist joints a re seen. No suspicious bony lesions. Scaphoid view: Scaphoid is grossly intact. Soft tissues: No suspicious soft tissue calcifications. IMPRESSION: No wrist fracture or dislocation is seen. Moderate wrist joint osteoarthritis. Reviewed by: Len Hernandez MD on 04/24/2022 5:29 PM PDT Approved by: Len Hernandez MD on 04/24/2022 5:29 PM PDT Station ID: [id number]
== END 2022-04-24 14:06 | disposition home or self-care (01) ==
LOC: DI.N 14:05
PROVIDERS: ATTEND Nurse Practitioner
DX: M19.032 Primary osteoarthritis, left wrist (principal)

== ENCOUNTER 2022-05-02 14:58 | Outpatient (CLI) | payer MEDICARE, MEDICAID ==
[2022-05-02 17:57] LABS: HCT - HEMATOCRIT 41.9 % (37.0-47.0); HGB - HEMOGLOBIN 13.3 g/dL (12.0-16.0); MEAN CORPUSCULAR HEMOGLOBIN 28.1 pg (27.0-31.0); MEAN CORPUSCULAR HGB CONC 31.7 g/dL (32.0-36.0); MEAN CORPUSCULAR VOLUME 88.4 fL (81.0-99.0); MEAN PLATELET VOLUME 8.7 fL (7.9-10.8); RED BLOOD COUNT 4.74 10^6/uL (4.20-5.40); RED CELL DISTRIBUTION WIDTH 16.1 % (12.0-15.0)
[2022-05-02 18:25] LABS: % IRON SATURATION 27 % (20-50); IRON 88 ug/dL (28-170); TOTAL IRON BINDING CAPACITY 329 ug/dL (250-450); TRANSFERRIN 235 mg/dL (192-382)
== END 2022-05-02 14:59 | disposition home or self-care (01) ==
LOC: LAB.N 14:58
PROVIDERS: ATTEND Nurse Practitioner
DX: D50.0 Iron deficiency anemia secondary to blood loss (chronic) (principal); Z87.19 Personal history of other diseases of the digestive system
CPT/HCPCS: 36415; 82728; 83540; 84466; 85027

== ENCOUNTER 2022-07-28 09:36 | Outpatient (CLI) | payer MEDICARE, MEDICAID | END 2022-07-28 09:37 | disposition critical access hospital (66) | LOC: EMS 09:36 | DX: K92.1 Melena (principal); R53.1 Weakness; R42 Dizziness and giddiness; R10.30 Lower abdominal pain, unspecified | CPT/HCPCS: A0425; A0429 ==

== ENCOUNTER 2022-08-15 13:47 | Outpatient (CLI) | payer MEDICARE ==
[2022-08-15 17:50] LABS: BASOPHILS # (AUTO) 0.1 10^3/uL (0.0-0.1); BASOPHILS % (AUTO) 1.8 %; EOSINOPHILS # (AUTO) 0.4 10^3/uL (0.0-0.7); EOSINOPHILS % (AUTO) 4.9 %; HCT - HEMATOCRIT 39.4 % (37.0-47.0); HGB - HEMOGLOBIN 12.2 g/dL (12.0-16.0); LYMPHOCYTES # (AUTO) 2.6 10^3/uL (1.5-3.5); LYMPHOCYTES % (AUTO) 35.6 %; MEAN PLATELET VOLUME 8.3 fL (7.9-10.8); MONOCYTES # (AUTO) 0.5 10^3/uL (0.0-1.0); MONOCYTES % (AUTO) 7.3 %; NEUTROPHILS # (AUTO) 3.7 10^3/uL (1.5-6.6); NEUTROPHILS % (AUTO) 49.7 %; PLT - PLATELET COUNT 404 10^3/uL (130-450); RED BLOOD COUNT 4.06 10^6/uL (4.20-5.40); RED CELL DISTRIBUTION WIDTH 14.8 % (12.0-15.0); WHITE BLOOD COUNT 7.4 x10^3/uL (4.8-10.8)
[2022-08-15 18:00] LABS: BILIRUBIN,URINE NEGATIVE (NEGATIVE); GLUCOSE, URINE (UA) NEGATIVE (NEGATIVE); KETONES,URINE (UA) NEGATIVE (NEGATIVE); LEUKOCYTE ESTERASE, URINE NEGATIVE (NEGATIVE); NITRITE,URINE NEGATIVE (NEGATIVE); OCCULT BLOOD,URINE NEGATIVE (NEGATIVE); PROTEIN,URINE NEGATIVE (NEGATIVE); UROBILINOGEN,URINE 0.2 (NORMAL) E.U./dL (NORMAL)
[2022-08-15 18:14] LABS: BACTERIA,URINE Few /HPF (None Seen); CLARITY,URINE CLEAR (CLEAR); RBC,URINE 0-5 /HPF (0-5); SQUAMOUS EPITHELIAL CELL,UR FEW Squamous (<= Few); WBC,URINE 0-3 /HPF (0-5)
[2022-08-15 18:20] LABS: ALBUMIN 3.9 g/dL (3.2-5.5); ALBUMIN/GLOBULIN RATIO 1.2 (1.0-2.2); BILIRUBIN,TOTAL 0.5 mg/dL (0.2-1.0); CALCIUM 9.2 mg/dL (8.5-10.3); CREATININE 1.2 mg/dL (0.4-1.0); POTASSIUM 4.5 mmol/L (3.5-5.0); TOTAL PROTEIN 7.1 g/dL (6.7-8.2)
== END 2022-08-15 13:48 | disposition home or self-care (01) ==
LOC: LAB.N 13:47
PROVIDERS: ATTEND Nurse Practitioner
DX: K92.2 Gastrointestinal hemorrhage, unspecified (principal); R35.0 Frequency of micturition; R53.83 Other fatigue
CPT/HCPCS: 36415; 80053; 81001; 85025; 87040; 87086

== ENCOUNTER 2022-09-15 13:28 | Outpatient (CLI) | payer MEDICARE ==
[2022-09-15 18:53] LABS: HCT - HEMATOCRIT 41.5 % (37.0-47.0); HGB - HEMOGLOBIN 13.1 g/dL (12.0-16.0); MEAN CORPUSCULAR HEMOGLOBIN 29.1 pg (27.0-31.0); MEAN CORPUSCULAR HGB CONC 31.6 g/dL (32.0-36.0); MEAN CORPUSCULAR VOLUME 92.2 fL (81.0-99.0); RED BLOOD COUNT 4.5 10^6/uL (4.20-5.40); RED CELL DISTRIBUTION WIDTH 13.1 % (12.0-15.0); WHITE BLOOD COUNT 8.3 x10^3/uL (4.8-10.8)
[2022-09-15 19:24] LABS: % IRON SATURATION 13 % (20-50); IRON 51 ug/dL (28-170); TOTAL IRON BINDING CAPACITY 378 ug/dL (250-450); TRANSFERRIN 270 mg/dL (192-382)
== END 2022-09-15 13:29 | disposition home or self-care (01) ==
LOC: LAB.N 13:28
PROVIDERS: ATTEND Internal Medicine Gastroenterology
DX: D50.9 Iron deficiency anemia, unspecified (principal)
CPT/HCPCS: 36415; 82728; 83540; 84466; 85027

== ENCOUNTER 2022-11-29 15:21 | Outpatient (CLI) | payer MEDICARE ==
--- NOTE | 2022-11-30 12:50 | Mammography Report ---
BILATERAL DIGITAL SCREENING MAMMOGRAM 3D/2D: 11/29/2022 CLINICAL: Routine screening. Comparison is made to exams dated: 06/30/2021 mammogram, 11/03/2018 mammogram, 04/01/2014 mammogram, a nd 11/06/2011 mammogram - [facility]. There are scattered areas of fibroglandular density in both breasts (category b / 25%-50% glandular t issue). No significant masses, calcifications, or other findings are seen in either breast. There has been no significant interval change. IMPRESSION: NEGATIVE There is no mammographic evidence of malignancy. A 1 year screening mammogram is recommended. Based on the Tyrer Cuzick model (a risk assessment model) the patients lifetime risk is 5.4% and her 10 year risk is 3.7%. According to the ACR, ACS, and NCCN guidelines, an annual breast MRI exam abel g with mammogram is recommended if the patients lifetime risk is 20% or greater. This exam was interpreted at Station ID: [id number]. NOTE: For mammograms, a report in lay terms will be sent to the patient. Approximately 15% of breast malignancies will not be visualized mammographically. In the management of a palpable breast mass, a negative mammogram must not discourage biopsy of a clinically suspicious lesion. Electronically Signed By: Jose Alfredo kelly/penkathrin:11/30/2022 09:44:52 ACR BI-RADS Category 1: Negative 3341F PARENCHYMAL PATTERN: (A) - The breast(s) demonstrate(s) scattered fibroglandular densities. BI-RADS CATEGORY: (1) - 1 RECOMMENDATION: (ANNUAL) - Recommend routine annual screening mammography. [id number] 1 year screening LATERALITY: (B)
== END 2022-11-29 15:22 | disposition home or self-care (01) ==
LOC: DI.N 15:21
PROVIDERS: ATTEND Nurse Practitioner
DX: Z12.31 Encounter for screening mammogram for malignant neoplasm of breast (principal)

== ENCOUNTER 2023-06-13 09:06 | Outpatient (CLI) | payer MEDICARE | END 2023-06-13 23:59 | disposition critical access hospital (66) | LOC: EMS 09:06 | DX: R53.1 Weakness (principal); R29.6 Repeated falls | CPT/HCPCS: A0425; A0429 ==

== ENCOUNTER 2023-06-13 09:26 | Emergency (ER) | payer MEDICARE ==
[2023-06-13 10:10] LABS: BASOPHILS # (AUTO) 0.1 10^3/uL (0.0-0.1); BASOPHILS % (AUTO) 0.9 %; EOSINOPHILS # (AUTO) 0.3 10^3/uL (0.0-0.7); EOSINOPHILS % (AUTO) 3.1 %; HCT - HEMATOCRIT 41.5 % (37.0-47.0); HGB - HEMOGLOBIN 13.2 g/dL (12.0-16.0); LYMPHOCYTES # (AUTO) 1.1 10^3/uL (1.5-3.5); LYMPHOCYTES % (AUTO) 9.5 %; MEAN CORPUSCULAR HEMOGLOBIN 29.3 pg (27.0-31.0); MEAN CORPUSCULAR HGB CONC 31.8 g/dL (32.0-36.0); MEAN CORPUSCULAR VOLUME 92.2 fL (81.0-99.0); MEAN PLATELET VOLUME 8.6 fL (7.9-10.8); MONOCYTES # (AUTO) 0.6 10^3/uL (0.0-1.0); MONOCYTES % (AUTO) 5.7 %; NEUTROPHILS # (AUTO) 8.5 10^3/uL (1.5-6.6); NEUTROPHILS % (AUTO) 76.3 %; NRBC ABSOLUTE COUNT (AUTO) 0.02 x10^3/uL; NUCLEATED RED BLOOD CELLS AUTO 0.2 /100WBC; PLT - PLATELET COUNT 251 10^3/uL (130-450); RED CELL DISTRIBUTION WIDTH 15.8 % (12.0-15.0); WHITE BLOOD COUNT 11.1 x10^3/uL (4.8-10.8)
[2023-06-13 10:32] LABS: ALBUMIN 3.9 g/dL (3.2-5.5); ALBUMIN/GLOBULIN RATIO 1.4 (1.0-2.2); BILIRUBIN,TOTAL 0.3 mg/dL (0.2-1.0); CALCIUM 8.6 mg/dL (8.5-10.3); CREATININE 1.8 mg/dL (0.6-1.3); POTASSIUM 3.2 mmol/L (3.5-4.5); TOTAL PROTEIN 6.7 g/dL (6.4-8.9)
--- NOTE | 2023-06-13 11:02 | ED Physician Documentation ---
PD HPI ALTERED MENTAL STATUS - Stated complaint Stated Complaint: GENERALIZED WEAKNESS/FALLS - Chief complaint Chief Complaint: Neuro - History obtained from History obtained from: Patient - History of Present Illness Timing - onset: How many days ago (3-4) Timing - duration: Days (3-4) Timing - details: Gradual onset, Still present Contributing factors: Recent med change (she had her Seroquel dose doubled by her provider 4 days ago and pt noted confusion and being off balance starting the next morning and has persisted. She had also had Gabapentin changed to Lyrica but was not any better with it, so returned to gabapentin last week.). No: Anticoagulated, Diabetic, Recent illness Basline status: Alert and oriented X 3, Ambulatory, Walker Similar symptoms before: Has not had sx before Recently seen: Clinic (with med changes over past few weeks. Had seroquel increased (doubled) 4 days ago to help with anxiety/sleep.) Review of Systems Constitutional: denies: Fever, Chills Nose: denies: Rhinorrhea / runny nose, Congestion Throat: denies: Sore throat Cardiac: denies: Chest pain / pressure, Palpitations, Calf pain Respiratory: denies: Cough GI: denies: Abdominal Pain, Vomiting, Diarrhea : denies: Frequency, Hesitancy Skin: denies: Rash, Lesions Neurologic: reports: Confused, Altered mental status. 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 () : Kidney stones HEENT: Other Psych: Depression, Anxiety Musculoskeletal: Osteoarthritis Derm: None - Past Surgical History Past Surgical History: Yes General: Colonoscopy, EGD Ortho: Spine surgery - Present Medications Home Medications: Ambulatory Orders Medication Instructions Recorded Confirmed Omeprazole 40 mg PO QDAC 05/27/15 02/01/22 Multivitamin W/Minerals [Theragran 1 tab PO DAILYWM tablet 08/25/18 02/01/22 M] Fluoxetine HCl [Prozac] 60 mg PO DAILY 02/01/22 02/01/22 Gabapentin [Neurontin] 1,200 mg PO HS 02/01/22 02/01/22 HYDROcodone/ACET 7.5/325 [[place] 1 each PO Q4-6H MDD 6 02/01/22 02/01/22 7.5/325] QUEtiapine [SEROquel] 100 mg PO HS 02/01/22 02/01/22 hydrOXYzine pamoate [Hydroxyzine 25 mg PO Q4H PRN 02/01/22 02/01/22 Pamoate] rOPINIRole [Requip] 0.5 mg PO HS 02/01/22 02/01/22 - Allergies Allergies/Adverse Reactions: Allergies Allergy/AdvReac Type Severity Reaction Status Date / Time cefoxitin Allergy Emesis Verified 11/04/19 15:22 cephalexin [From Keflex] AdvReac Unknown Verified 02/01/22 00:46 - Social History Does the pt smoke?: No Smoking Status: Never smoker Does the pt drink ETOH?: Yes Does the pt have substance abuse?: No - Immunizations Immunizations are current?: Yes - POLST Patient has POLST: No POLST Status: Full Code PD ED PE NORMAL - Vitals Vital signs reviewed: Yes - General General: Alert and oriented X 3, No acute distress, Well developed/nourished - HEENT HEENT: Atraumatic, PERRL, EOMI, Pharynx benign - Neck Neck: Supple, no meningeal sign, No adenopathy - Cardiac Cardiac: RRR, No murmur - Respiratory Respiratory: Clear bilaterally - Abdomen Abdomen: Soft, Non tender - Female Female : Deferred - Rectal Rectal: Deferred - Back Back: No CVA TTP - Derm Derm: Normal color, Warm and dry, No rash Results - Vitals Vitals: Vital Signs - 24 hr 06/13/23 06/13/23 06/13/23 09:39 11:42 13:38 Temperature 36.0 C L Heart Rate 79 82 85 Respiratory 18 13 12 Rate Blood Pressure 139/68 H 144/70 H 131/72 H O2 Saturation 97 99 98 06/13/23 14:17 Temperature Heart Rate 82 Respiratory 18 Rate Blood Pressure 142/72 H O2 Saturation 100 Oxygen O2 Source [With Activity] Room air O2 Source [Without Activity] Room air O2 Source Room air - EKG (time done) 10:06 EKG releavant findings:: EKG personally interpreted by author of this note. Relevant findings are: Rate: Rate (enter#) (76) Rhythm: NSR Humphrey: Normal Intervals: Normal ND QRS: Normal Ischemia: Normal ST segments. No: ST elevation c/w ischemia, ST depression - Labs Labs: Laboratory Tests 06/13/23 06/13/23 06/13/23 10:04 10:04 10:04 WBC 11.1 H RBC 4.50 Hgb 13.2 Hct 41.5 MCV 92.2 MCH 29.3 MCHC 31.8 L RDW 15.8 H Plt Count 251 MPV 8.6 Neut # (Auto) 8.5 H Lymph # (Auto) 1.1 L [place] # (Auto) 0.6 Eos # (Auto) 0.3 Baso # (Auto) 0.1 Absolute Nucleated RBC 0.02 Nucleated RBC % 0.2 Sodium 137 Potassium 3.2 L Chloride 112 H Carbon Dioxide 13 L Anion Gap 12.0 BUN 19 Creatinine 1.8 H Estimated GFR (MDRD) 28 L Glucose 100 POC Whole Bld Glucose Calcium 8.6 Magnesium Total Bilirubin 0.3 AST 11 ALT 11 Alkaline Phosphatase 74 Troponin I High Sens 9.9 Total Protein 6.7 Albumin 3.9 Globulin 2.8 Albumin/Globulin Ratio 1.4 Lipase 17 Urine Color Urine Clarity Urine pH Ur Specific [place] Urine Protein Urine Glucose (UA) Urine Ketones Urine Occult Blood Urine Nitrite Urine Bilirubin Urine Urobilinogen Ur Leukocyte Esterase Urine RBC Urine WBC Ur Squamous Epith Cells Urine Bacteria Urine Casts Urine Mucus Ur Microscopic Review Urine Culture Comments Urine Opiates Screen Ur Oxycodone Screen Urine Methadone Screen Ur Propoxyphene Screen Ur Barbiturates Screen Ur Tricyclics Screen Ur Phencyclidine Scrn Ur Amphetamine Screen U Methamphetamines Scrn U Benzodiazepines Scrn Urine Cocaine Screen U Cannabinoids Screen Ethyl Alcohol 06/13/23 06/13/23 06/13/23 10:04 10:18 13:26 WBC RBC Hgb Hct MCV MCH MCHC RDW Plt Count MPV Neut # (Auto) Lymph # (Auto) [place] # (Auto) Eos # (Auto) Baso # (Auto) Absolute Nucleated RBC Nucleated RBC % Sodium Potassium Chloride Carbon Dioxide Anion Gap BUN Creatinine Estimated GFR (MDRD) Glucose POC Whole Bld Glucose 96 Calcium Magnesium 2.4 H Total Bilirubin AST ALT Alkaline Phosphatase Troponin I High Sens Total Protein Albumin Globulin Albumin/Globulin Ratio Lipase Urine Color YELLOW Urine Clarity CLEAR Urine pH 6.0 Ur Specific [place] 1.020 Urine Protein 100 H Urine Glucose (UA) NEGATIVE Urine Ketones NEGATIVE Urine Occult Blood TRACE-INTA Urine Nitrite NEGATIVE Urine Bilirubin NEGATIVE Urine Urobilinogen 0.2 (NORMAL) Ur Leukocyte Esterase TRACE H Urine RBC 0-5 Urine WBC 11-25 H Ur Squamous Epith Cells MOD Squamous H Urine Bacteria Few Urine Casts 3-5 Hyaline Casts Urine Mucus Few Strands Ur Microscopic Review INDICATED Urine Culture Comments NOT INDICATED Urine Opiates Screen NEGATIVE Ur Oxycodone Screen NEGATIVE Urine Methadone Screen NEGATIVE Ur Propoxyphene Screen NEGATIVE Ur Barbiturates Screen NEGATIVE Ur Tricyclics Screen POSITIVE H Ur Phencyclidine Scrn NEGATIVE Ur Amphetamine Screen POSITIVE H U Methamphetamines Scrn POSITIVE H U Benzodiazepines Scrn NEGATIVE Urine Cocaine Screen NEGATIVE U Cannabinoids Screen NEGATIVE Ethyl Alcohol < 10.0 - Rads (name of study) head CT Relevant Findings:: Prelim report reviewed (no intracranial pathology. ), EMP independent interpretation of test, See rad report PD Medical Decision Making - ED course Complexity details: re-evaluated patient (After some IV fluids and medications and having the lab tests and then CT scan (she had fallen down a few times and wanted to ensure no subdural/bleed). The patient was then attempted to walk. She did well here in the ER with a walker and the air moving technician states she appeared safe with ambulating.) ED course: the patient was given IV fluids and some potassium here in ER. She had had some falls and so CT head done to ensure no ICH. Her symtpoms started with increased dose of seroquel, so seems correlated as side effect of the medicaiton. Can check for metabolic causes (lytes, blood sugar) as well as structural (head CT for bleed, tumors, etc.). She was feeling improved after time in the ED> restrictive preparation operator did have patient up with walker once tests and CT were done. The patient was able to ambulate readily in ED and no appearance of unsafe walking. Feel that the patient is safe for discharge. She is to hold her Seroquel for tonight and then resume at prior lower dose tomorrow. Can continue her Gabapentin at current usual dose. Patient wihtout other new meds. Denies more than every few months alcohol use. No recreational drugs. Departure - Departure Disposition: 01 Home, Self Care Clinical Impression: Hypokalemia, Ataxia, Medication side effect Condition: Stable Record reviewed to determine appropriate education?: Yes Instructions: ED Diet High Potassium Comments: Hydrate well the next few days. You can continue with your gabapentin. I would hold your Seroquel tonight to allow it to drift out of your system evening better. Resume it tomorrow at the lower dose. Add a potassium supplement over the next week or so. Up and around slowly. Use your walker at home in particular the next few days. I would anticipate improvement over the next day or 2. Follow-up with your primary care or return to the ER if not improved or worsening. Here your basic blood tests were good aside from a little low potassium. Your CT scan did not show any signs of intracranial process such as bleeding swelling or obvious stroke. It does sound like the side effect to your increased medications likely interacting between the Seroquel and the gabapentin. Forms: PCP List Discharge Date/Time: 06/13/23 16:00
[2023-06-13] MEDS ORDERED: SODIUM CHLORIDE 0.9% 1,000 ML IV STA (11:34)
[2023-06-13] MEDS ORDERED: POTASSIUM BICARB 25 MEQ TABLET PO STA (11:35)
[2023-06-13] MEDS ORDERED: POTASSIUM CHLOR 10 MEQ/100 ML 10 MEQ/100 ML BAG IV ONE (11:35)
[2023-06-13 11:49] LABS: ETOH - ETHANOL < 10.0 mg/dL; MAGNESIUM 2.4 mg/dL (1.7-2.3)
--- NOTE | 2023-06-13 12:25 | CT Report ---
PROCEDURE: HEAD WO INDICATIONS: off balance, confused several days; fell TECHNIQUE: Noncontrast 4.5 mm thick angled axial sections acquired from the foramen magnum to the vertex. For r adiation dose reduction, the following was used: automated exposure control, adjustment of mA and/or kV according to patient size. COMPARISON: None. FINDINGS: Image quality: Excellent. CSF spaces: Basal cisterns are patent. No extra-axial fluid collections. Ventricles are normal in size and shape. Brain: No midline shift. No intracranial masses or hemorrhage. [place]-white matter interface is norm al. Skull and face: Calvarium and visualized facial bones are intact, without suspicious lesions. Sinuses: Visualized sinuses and mastoids are clear. IMPRESSION: No acute intracranial pathology. Reviewed by: Len Hernandez MD on 06/13/2023 12:24 PM PDT Approved by: Len Hernandez MD on 06/13/2023 12:24 PM PDT Station ID: [id number]
[2023-06-13 13:29] LABS: MUDS CUTOFF CONCENTRATIONS CUTOFF CONC BELOW:
[2023-06-13 13:37] LABS: BILIRUBIN,URINE NEGATIVE (NEGATIVE); CLARITY,URINE CLEAR (CLEAR); GLUCOSE, URINE (UA) NEGATIVE (NEGATIVE); KETONES,URINE (UA) NEGATIVE (NEGATIVE); LEUKOCYTE ESTERASE, URINE TRACE (NEGATIVE); NITRITE,URINE NEGATIVE (NEGATIVE); OCCULT BLOOD,URINE TRACE-INTA (NEGATIVE); PROTEIN,URINE 100 mg/dL (NEGATIVE); UROBILINOGEN,URINE 0.2 (NORMAL) E.U./dL (NORMAL)
[2023-06-13 13:42] LABS: BACTERIA,URINE Few /HPF (None Seen); CASTS, URINE 3-5 Hyaline Casts /LPF; MUCUS,URINE Few Strands; RBC,URINE 0-5 /HPF (0-5); SQUAMOUS EPITHELIAL CELL,UR MOD Squamous (<= Few)
[2023-06-13 13:45] LABS: AMPHETAMINE SCREEN,URINE POSITIVE (NEGATIVE); BARBITURATE SCREEN,UR NEGATIVE (NEGATIVE); BENZODIAZEPINES SCREEN, URINE NEGATIVE (NEGATIVE); COCAINE SCREEN URINE NEGATIVE (NEGATIVE); METHADONE SCREEN, URINE NEGATIVE (NEGATIVE); METHAMPHETAMINES SCREEN, URINE POSITIVE (NEGATIVE); OPIATE SCREEN, URINE NEGATIVE (NEGATIVE); OXYCODONE SCREEN, URINE NEGATIVE (NEGATIVE); PROPOXYPHENE SCREEN, URINE NEGATIVE (NEGATIVE); THC CANNABINOID SCREEN, URINE NEGATIVE (NEGATIVE); TRICYCLIC ANTIDEPRESSANT,URINE POSITIVE (NEGATIVE)
[2023-06-13] MEDS ORDERED: MECLIZINE 12.5 MG TABLET PO STA (13:50)
[2023-06-13 14:25] VITALS: BP 142/72
== END 2023-06-13 16:00 | disposition home or self-care (01) ==
LOC: ED 09:26
DX: E87.6 Hypokalemia (principal); R27.0 Ataxia, unspecified; T50.905A Adverse effect of unspecified drugs, medicaments and biological substances, initial encounter
CPT/HCPCS: 36415; 70450; 80053; 80306; 81001; 83690; 83735; 84484; 85025; 93005; 96365; 96366; 99284; A9270; G0480; 80320; 81003; 87086

== ENCOUNTER 2023-06-15 14:19 | Outpatient (CLI) | payer MEDICARE | END 2023-06-15 23:59 | disposition critical access hospital (66) | LOC: EMS 14:19 | DX: R53.1 Weakness (principal); R29.6 Repeated falls; R52 Pain, unspecified; R53.83 Other fatigue | CPT/HCPCS: A0425; A0429 ==

== ENCOUNTER 2023-06-15 14:42 | Emergency (ER) | payer MEDICARE ==
[2023-06-15] MEDS ORDERED: POTASSIUM CHLOR 10 MEQ/100 ML 10 MEQ/100 ML BAG IV STA (15:51)
[2023-06-15] MEDS ORDERED: POTASSIUM BICARB 25 MEQ TABLET PO STA (15:51)
[2023-06-15] MEDS ORDERED: SODIUM CHLORIDE 0.9% 1,000 ML IV STA (15:51)
--- NOTE | 2023-06-15 18:02 | ED Physician Documentation ---
PD HPI Fall - Stated complaint Stated Complaint: GEN WEAKNESS - Chief complaint Chief Complaint: General - History obtained from History obtained from: Patient - History of Present Illness Mechanism of injury: Lost balance (The patient states she is fallen 3-4 times since discharge 2 days ago. She had fallen prior to that ER visit. She has not taken her Seroquel for last few days as that was thought to be the reason for her symptoms on prior visit. She also did not take her Neurontin.) Fall distance: Standing position (she states she has fallen 4 times in past 2 days due to feeling of off balance and general weakness. Denies focal weakness.) Injury(ies) location: No: Head, Face, Neck Associated symptoms: Other (feeing weak and off balance.). No: LOC, AMS Worsens with: Movement Contributing factors: No: Anticoagulated, Intoxicated Similar symptoms before: No diagnosis (she had onset of these symptoms about 6 days ago when had increase in med dose of Seroquel at night for sleep. Had above symptoms. Has held the seroquel since last ED visit 2 days ago but has not improved.) Recently seen: Clinic (4 days ago for general care and had Seroquel dose doubled to help with sleep. current sympotms of weak/ off balance started the following day after increassed dose.), Emergency Dept (2 days ago for similar but seemed improved enough with fluids/time to ambulate with walker to bathroom/etc and seemed steady.) Review of Systems Constitutional: denies: Fever, Chills Nose: denies: Rhinorrhea / runny nose, Congestion Throat: denies: Sore throat Respiratory: denies: Cough GI: denies: Abdominal Pain, Vomiting, Diarrhea : denies: Dysuria, Frequency Skin: denies: Abrasion (s), Laceration (s) Neurologic: reports: Generalized weakness. 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 () : Kidney stones HEENT: Other Psych: Depression, Anxiety Musculoskeletal: Osteoarthritis Derm: None - Past Surgical History Past Surgical History: Yes General: Colonoscopy, EGD Ortho: Spine surgery - Present Medications Home Medications: Ambulatory Orders Medication Instructions Recorded Confirmed Omeprazole 40 mg PO QDAC 05/27/15 06/15/23 Multivitamin W/Minerals [Theragran 1 tab PO DAILYWM tablet 08/25/18 06/15/23 M] Fluoxetine HCl [Prozac] 60 mg PO DAILY 02/01/22 06/15/23 Gabapentin [Neurontin] 600 mg PO TID 02/01/22 06/15/23 QUEtiapine [SEROquel] 100 mg PO HS 02/01/22 06/15/23 rOPINIRole [Requip] 0.5 mg PO HS 02/01/22 06/15/23 Buspirone HCl 15 mg PO BID 06/15/23 06/15/23 - Allergies Allergies/Adverse Reactions: Allergies Allergy/AdvReac Type Severity Reaction Status Date / Time cefoxitin Allergy Emesis Verified 06/15/23 14:44 cephalexin [From Keflex] AdvReac Unknown Verified 06/15/23 14:44 - Social History Does the pt smoke?: No Smoking Status: Never smoker Does the pt drink ETOH?: Yes Does the pt have substance abuse?: No - Immunizations Immunizations are current?: Yes - POLST Patient has POLST: No POLST Status: Full Code PD ED PE NORMAL - Vitals Vital signs reviewed: Yes - General General: Alert and oriented X 3, No acute distress, Well developed/nourished - HEENT HEENT: Atraumatic - Neck Neck: Supple, no meningeal sign, No bony TTP, No adenopathy - Cardiac Cardiac: RRR, No murmur - Respiratory Respiratory: Clear bilaterally - Abdomen Abdomen: Soft, Non tender - Derm Derm: Normal color, Warm and dry - Extremities Extremities: Normal ROM s pain, No edema - Neuro Neuro: Alert and oriented X 3, organizational effectiveness director 2-12 intact, No motor deficit, No sensory deficit, Normal speech Eye Opening: Spontaneous Motor: Obeys Commands Verbal: Oriented GCS Score: 15 Results - Vitals Vitals: Vital Signs - 24 hr 06/15/23 06/15/23 06/15/23 14:45 14:47 16:47 Temperature 36.5 C 36.5 C Heart Rate 70 70 72 Respiratory 16 16 16 Rate Blood Pressure 160/90 H 160/90 H 150/88 H O2 Saturation 96 96 98 06/15/23 06/15/23 06/15/23 18:00 19:00 21:00 Temperature Heart Rate 68 77 72 Respiratory 16 17 20 Rate Blood Pressure 151/83 H 154/80 H 159/79 H O2 Saturation 100 99 97 06/15/23 06/16/23 06/16/23 23:00 01:00 03:00 Temperature Heart Rate 72 76 70 Respiratory 18 17 18 Rate Blood Pressure 160/76 H 178/81 H 157/67 H O2 Saturation 96 95 95 06/16/23 06/16/23 06/16/23 05:11 07:00 09:33 Temperature Heart Rate 81 70 79 Respiratory 16 16 16 Rate Blood Pressure 159/76 H 161/90 H 165/80 H O2 Saturation 98 94 97 Oxygen O2 Source [With Activity] Room air O2 Source [Without Activity] Room air O2 Source Room air - Labs Labs: Laboratory Tests 06/15/23 06/15/23 06/15/23 16:24 16:24 16:24 WBC 10.8 RBC 4.52 Hgb 13.2 Hct 40.4 MCV 89.4 MCH 29.2 MCHC 32.7 RDW 15.7 H Plt Count 304 MPV 9.1 Neut # (Auto) Not Reportable Lymph # (Auto) Not Reportable [place] # (Auto) Not Reportable Eos # (Auto) Not Reportable Baso # (Auto) Not Reportable Absolute Nucleated RBC Not Reportable Total Counted 100 Band Neuts % (Manual) 1 Abnorm Lymph % (Manual) 0 Metamyelocytes % 2 H Myelocytes % 3 H Promyelocytes % 2 H Nucleated RBC % Not Reportable Neutrophils # (Manual) 8.0 H Lymphocytes # (Manual) 1.3 L Monocytes # (Manual) 0.8 Eosinophils # (Manual) 0.0 Basophils # (Manual) 0.0 Nucleated RBCs 1 Differential Comment MANUAL DIFFERENTIAL Platelet Estimate NORMAL (130-450,000) Platelet Morphology NORMAL APPEARANCE RBC Morph Micro Appear NORMAL APPEARANCE Sodium 139 Potassium 3.4 L Chloride 112 H Carbon Dioxide 14 L Anion Gap 13.0 BUN 13 Creatinine 1.1 Estimated GFR (MDRD) 49 L Glucose 86 Calcium 9.4 Magnesium 2.1 Total Bilirubin 0.4 AST 17 ALT 14 Alkaline Phosphatase 80 Total Protein 7.1 Albumin 4.1 Globulin 3.0 Albumin/Globulin Ratio 1.4 Lipase 17 Urine Color Urine Clarity Urine pH Ur Specific [place] Urine Protein Urine Glucose (UA) Urine Ketones Urine Occult Blood Urine Nitrite Urine Bilirubin Urine Urobilinogen Ur Leukocyte Esterase Urine RBC Urine WBC Ur Squamous Epith Cells Urine Bacteria Ur Microscopic Review Urine Culture Comments 06/15/23 19:14 WBC RBC Hgb Hct MCV MCH MCHC RDW Plt Count MPV Neut # (Auto) Lymph # (Auto) [place] # (Auto) Eos # (Auto) Baso # (Auto) Absolute Nucleated RBC Total Counted Band Neuts % (Manual) Abnorm Lymph % (Manual) Metamyelocytes % Myelocytes % Promyelocytes % Nucleated RBC % Neutrophils # (Manual) Lymphocytes # (Manual) Monocytes # (Manual) Eosinophils # (Manual) Basophils # (Manual) Nucleated RBCs Differential Comment Platelet Estimate Platelet Morphology RBC Morph Micro Appear Sodium Potassium Chloride Carbon Dioxide Anion Gap BUN Creatinine Estimated GFR (MDRD) Glucose Calcium Magnesium Total Bilirubin AST ALT Alkaline Phosphatase Total Protein Albumin Globulin Albumin/Globulin Ratio Lipase Urine Color YELLOW Urine Clarity CLEAR Urine pH 6.5 Ur Specific [place] 1.020 Urine Protein 30 H Urine Glucose (UA) NEGATIVE Urine Ketones 40 H Urine Occult Blood TRACE-INTA Urine Nitrite NEGATIVE Urine Bilirubin NEGATIVE Urine Urobilinogen 0.2 (NORMAL) Ur Leukocyte Esterase NEGATIVE Urine RBC 0-5 Urine WBC 0-3 Ur Squamous Epith Cells RARE Squamous Urine Bacteria Rare Ur Microscopic Review INDICATED Urine Culture Comments NOT INDICATED - Rads (name of study) brain MRI Relevant Findings:: Prelim report reviewed (no infarcts nor acute changes. ), See rad report PD Medical Decision Making - ED course Complexity details: reviewed old records, reviewed results (Toady I had concern of missing other cause, so got brain MRI. This did not show any posterior circ ulation problems. ), re-evaluated patient (she is feeling weak and off balance. Had done okay with walker on recent ED visit. Eval today attempting walking was unsteady. She claims falling 4 times in past 2 days. I suppose more time to see if improves, if releated to med side effects, SW to discuss other options. Not meeting admit criteria.), considered differential (AT ED visit 2 days ago, the symptoms seemed referenced to her increasing dose of seroquel at night. Has since held the med but no better. Also held Neurontin, so consider some withdrawal effect of that. I would presume her to resume usual doses of meds that wre okay for her prior to that. ), d/w patient Social Determinants of Health: patient lives alone and states has fallen multiple times. Here in ED, nursing assessment is that patient can ambulate successfully with walker (see nursing notes). Patient feels unsafe. Can have SW discuss with patient other options. Does not appear to meet admission criteria. Timecourse assuming her symptoms are still lingering side effect of recent med change (that has been held for 2 days now) is that I would expect improvement to baseline over couple more days. Her baseline does not sound very sturdy to begin with, as had walker need at home prior to this anyway. Departure - Departure Clinical Impression: Falls frequently Condition: Stable Record reviewed to determine appropriate education?: Yes Forms: PCP List
[2023-06-15 18:11] LABS: BASOPHILS % (AUTO) 0.9 %; EOSINOPHILS % (AUTO) 1.9 %; HCT - HEMATOCRIT 40.4 % (37.0-47.0); HGB - HEMOGLOBIN 13.2 g/dL (12.0-16.0); LYMPHOCYTES % (AUTO) 15.4 %; MEAN CORPUSCULAR HEMOGLOBIN 29.2 pg (27.0-31.0); MEAN CORPUSCULAR HGB CONC 32.7 g/dL (32.0-36.0); MEAN CORPUSCULAR VOLUME 89.4 fL (81.0-99.0); MEAN PLATELET VOLUME 9.1 fL (7.9-10.8); MONOCYTES % (AUTO) 7.5 %; NEUTROPHILS % (AUTO) 69.5 %; PLT - PLATELET COUNT 304 10^3/uL (130-450); RED BLOOD COUNT 4.52 10^6/uL (4.20-5.40); RED CELL DISTRIBUTION WIDTH 15.7 % (12.0-15.0); WHITE BLOOD COUNT 10.8 x10^3/uL (4.8-10.8)
[2023-06-15 18:13] LABS: ABNORMAL LYMPHS % (MANUAL) 0 %
[2023-06-15 18:21] LABS: ALBUMIN 4.1 g/dL (3.2-5.5); ALBUMIN/GLOBULIN RATIO 1.4 (1.0-2.2); BILIRUBIN,TOTAL 0.4 mg/dL (0.2-1.0); CALCIUM 9.4 mg/dL (8.5-10.3); CREATININE 1.1 mg/dL (0.6-1.3); POTASSIUM 3.4 mmol/L (3.5-4.5); TOTAL PROTEIN 7.1 g/dL (6.4-8.9)
--- NOTE | 2023-06-15 18:22 | MRI Report ---
PROCEDURE: MRI brain without contrast INDICATIONS: weakness general. vertigo/ataxia few days TECHNIQUE: Noncontrast axial T1 spin echo, axial T2 fast spin echo, sagittal and axial FLAIR, coronal T2 fast sp in echo, axial gradient echo, axial diffusion and ADC through the brain. COMPARISON: None. FINDINGS: Image quality: Excellent. CSF Spaces: Basal cisterns are patent. No extra-axial fluid collections. Ventricles are normal in size and shape. Brain: No intracranial masses or hemorrhage. [place]/white matter interface is normal. Brainstem appe ars normal. Diffusion-weighted images demonstrate no acute infarct. Normal intravascular flow voids are present. Skull and face: Calvarium has normal marrow signal. Orbits appear normal. Sinuses: Sinuses and mastoids are clear. IMPRESSION: Mild atrophy and white matter chronic ischemic change without acute infarct, hemorrhage or mass mc ozuna Reviewed by: Bairon Jackson MD on 06/15/2023 5:21 PM AKROGELIO Approved by: Bairon Jackson MD on 06/15/2023 5:21 PM AKDT Station ID: [id number]
[2023-06-15 18:32] LABS: BAND NEUTROPHILS % (MANUAL) 1 %; DIFFERENTIAL COMMENT MANUAL DIFFERENTIAL; LYMPHOCYTES # (MANUAL) 1.3 10^3/uL (1.5-3.5); LYMPHOCYTES % (MANUAL) 12 %; METAMYELOCYTES % (MANUAL) 2 %; MONOCYTES # (MANUAL) 0.8 10^3/uL (0.0-1.0); MYELOCYTES % (MANUAL) 3 %; NUCLEATED RBC (MANUAL) 1 %; PLATELET ESTIMATE, MANUAL NORMAL (130-450,000) (NORMAL); PLATELET MORPHOLOGY NORMAL APPEARANCE (NORMAL); PROMYELOCYTES % (MANUAL) 2 %; RBC MORPHOLOGY (MULTIPLE) NORMAL APPEARANCE (NORMAL)
[2023-06-15 19:22] LABS: BILIRUBIN,URINE NEGATIVE (NEGATIVE); GLUCOSE, URINE (UA) NEGATIVE (NEGATIVE); KETONES,URINE (UA) 40 mg/dL (NEGATIVE); LEUKOCYTE ESTERASE, URINE NEGATIVE (NEGATIVE); NITRITE,URINE NEGATIVE (NEGATIVE); OCCULT BLOOD,URINE TRACE-INTA (NEGATIVE); PH,URINE 6.5 PH (5.0-7.5); PROTEIN,URINE 30 mg/dL (NEGATIVE); UROBILINOGEN,URINE 0.2 (NORMAL) E.U./dL (NORMAL)
[2023-06-15 19:26] LABS: CLARITY,URINE CLEAR (CLEAR)
[2023-06-15 19:33] LABS: BACTERIA,URINE Rare /HPF (None Seen); RBC,URINE 0-5 /HPF (0-5); SQUAMOUS EPITHELIAL CELL,UR RARE Squamous (<= Few); WBC,URINE 0-3 /HPF (0-5)
[2023-06-15] MEDS ORDERED: ONDANSETRON ODT 4 MG TABLET TL STA (20:55)
[2023-06-16] MEDS ORDERED: ONDANSETRON ODT 4 MG TABLET TL STA (05:11)
--- NOTE | 2023-06-16 07:35 | ED Physician Documentation ---
ED Addendum - Addendum Addendum: 06/16/23 07:34 Patient signed out to me by overnight provider. Patient was seen yesterday in the emergency department after recently having multiple falls and a prior ED visit a few days ago. Patient is not safe for discharge and is boarding in the emergency department awaiting PT and OT evaluation as well as social work. Patient is currently sleeping. We will reassess her later this morning once a week. Regular diet has been ordered. 06/16/23 15:43 Patient seen at the bedside. She has been in bed throughout my shift. She has not had much of an appetite and has not touched much of her lunch. She reports feeling nauseous with eating but did take milk. Denies any abdominal pain. Discussed that social work and physical therapy are not available today and will not be here until tomorrow so patient is currently boarding in the emergency department. Plan to recheck electrolytes as potassium was slightly low yesterday and she has not had much p.o. intake. Patient agreeable to this plan. Home meds were also ordered. 06/16/23 17:13 Potassium is 2.8. Will order p.o. replacement and recheck in a.m. Patient remains boarding in the emergency department. Will be signed out at shift change to oncoming provider.
[2023-06-16] MEDS ORDERED: ACETAMINOPHEN 500 MG TABLET PO PRN (14:42)
[2023-06-16] MEDS ORDERED: ONDANSETRON ODT 4 MG TABLET TL PRN (14:42)
[2023-06-16 16:29] LABS: ALBUMIN 3.9 g/dL (3.2-5.5); ALBUMIN/GLOBULIN RATIO 1.4 (1.0-2.2); BILIRUBIN,TOTAL 0.4 mg/dL (0.2-1.0); CALCIUM 9.6 mg/dL (8.5-10.3); POTASSIUM 2.8 mmol/L (3.5-4.5); TOTAL PROTEIN 6.6 g/dL (6.4-8.9)
[2023-06-16] MEDS ORDERED: POTASSIUM BICARB 25 MEQ TABLET PO STA (17:13)
[2023-06-16] MEDS ORDERED: POTASSIUM BICARB 25 MEQ TABLET PO ONE (20:00)
[2023-06-16] MEDS: busPIRone 5 MG TABLET PO SCH (20:48)
[2023-06-16] MEDS ORDERED: QUEtiapine 100 MG TABLET PO SCH ×2 (21:00)
[2023-06-16] MEDS ORDERED: rOPINIRole 0.25 MG TABLET PO SCH (21:00)
[2023-06-16] MEDS: GABAPENTIN 300 MG CAPSULE PO SCH (21:47)
[2023-06-17 05:48] LABS: CALCIUM 9.9 mg/dL (8.5-10.3); CREATININE 1.1 mg/dL (0.6-1.3); POTASSIUM 2.9 mmol/L (3.5-4.5)
[2023-06-17] MEDS: GABAPENTIN 300 MG CAPSULE PO SCH (06:14)
[2023-06-17] MEDS ORDERED: PANTOPRAZOLE 40 MG TABLET PO SCH (07:00)
[2023-06-17] MEDS ORDERED: POTASSIUM CHLORIDE 20 MEQ TABLET PO STA (07:22)
[2023-06-17] MEDS ORDERED: FLUoxetine 10 MG CAPSULE PO SCH (09:00)
[2023-06-17] MEDS: busPIRone 5 MG TABLET PO SCH (09:24)
--- NOTE | 2023-06-17 11:32 | ED Physician Documentation ---
ED Addendum - Addendum Addendum: 06/17/23 Patient has been boarding in the emergency department awaiting evaluation by social work. Patient reports feeling better this morning. On recheck of her electrolytes her potassium is low so she was given 40 by mouth and 20 through the IV. She is eating her breakfast. She was able to ambulate steadily and feels safe going home and is requesting to go home. Social work did meet with her to discuss additional resources at home. Discussed that she needs close follow-up with her PCP for recheck of her electrolytes as well as management of her medications. Patient counseled on concerning symptoms to return for. Departure - Departure Disposition: Home, Self Care Clinical Impression: Falls frequently, Hypokalemia Condition: Stable Instructions: ED Potassium Deficiency, ED Weakness [facility] Comments: You were evaluated after a number of falls. The exact reason for your falls is unclear but we did note that your potassium level has been low, especially when you are not eating very much. We have given you potassium replacement through your IV as well as by pill. I would recommend you reach out to your primary care provider today to arrange for a follow-up appointment to discuss your current medications as well as for recheck of your potassium. Our social services designee has also given you information regarding resources in the community to help you at home. Please call 911 or return to the emergency department with any new concerns. Your Seroquel dose was recently increased to 100 mg. At this time I would recommend taking a lower dose of your Seroquel to 50 mg at night. Forms: PCP List Discharge Date/Time: 06/17/23 12:45
[2023-06-17 12:48] VITALS: BP 133/64
== END 2023-06-17 12:45 | disposition home or self-care (01) ==
LOC: ED 14:42
DX: E87.6 Hypokalemia (principal); R29.6 Repeated falls
CPT/HCPCS: 36415; 70551; 80048; 80053; 81001; 83690; 83735; 85025; 96365; 99284; A9270; Q0162; 81003; 87086

== ENCOUNTER 2023-07-16 13:45 | Outpatient (CLI) | payer MEDICARE | END 2023-07-16 13:46 | disposition home or self-care (01) | LOC: LAB.N 13:45 | PROVIDERS: ATTEND Nurse Practitioner | DX: Z53.9 Procedure and treatment not carried out, unspecified reason (principal) ==

== ENCOUNTER 2023-08-13 12:23 | Outpatient (CLI) | payer MEDICARE ==
[2023-08-13 12:57] LABS: BASOPHILS # (AUTO) 0.1 10^3/uL (0.0-0.1); EOSINOPHILS # (AUTO) 0.4 10^3/uL (0.0-0.7); EOSINOPHILS % (AUTO) 3.8 %; HCT - HEMATOCRIT 42.7 % (37.0-47.0); HGB - HEMOGLOBIN 13.6 g/dL (12.0-16.0); LYMPHOCYTES # (AUTO) 2.7 10^3/uL (1.5-3.5); MEAN CORPUSCULAR HEMOGLOBIN 28.7 pg (27.0-31.0); MEAN CORPUSCULAR HGB CONC 31.9 g/dL (32.0-36.0); MEAN CORPUSCULAR VOLUME 90.1 fL (81.0-99.0); MEAN PLATELET VOLUME 8.2 fL (7.9-10.8); MONOCYTES # (AUTO) 0.6 10^3/uL (0.0-1.0); MONOCYTES % (AUTO) 6.6 %; NEUTROPHILS # (AUTO) 5.3 10^3/uL (1.5-6.6); NEUTROPHILS % (AUTO) 57.8 %; PLT - PLATELET COUNT 256 10^3/uL (130-450); RED BLOOD COUNT 4.74 10^6/uL (4.20-5.40); RED CELL DISTRIBUTION WIDTH 13.9 % (12.0-15.0); WHITE BLOOD COUNT 9.1 x10^3/uL (4.8-10.8)
[2023-08-13 13:20] LABS: ALBUMIN 4.6 g/dL (3.2-5.5); ALBUMIN/GLOBULIN RATIO 1.6 (1.0-2.2); BILIRUBIN,TOTAL 0.4 mg/dL (0.2-1.0); CALCIUM 9.8 mg/dL (8.5-10.3); CREATININE 1.2 mg/dL (0.6-1.3); POTASSIUM 4.5 mmol/L (3.5-4.5); TOTAL PROTEIN 7.4 g/dL (6.4-8.9)
--- NOTE | 2023-08-13 15:34 | XRAY Report ---
PROCEDURE: Humerus RT INDICATIONS: RIGHT UPPER ARM PAIN, RIGHT SHOULDER PAIN TECHNIQUE: 2 views of the humerus were acquired. COMPARISON: None. FINDINGS: Bones: No fractures or dislocations. No suspicious bony lesions. Soft tissues: No suspicious soft tissue calcifications or masses. IMPRESSION: No fracture. No osseous lesion. If symptoms and/or clinical concern for pathology persists, further a ssessment with repeat plain film radiographs (7-10 days) or advanced imaging (CT, MR, bone scan) shou ld be considered. Reviewed by: Tahira Price MD, PhD on 08/13/2023 3:33 PM PDT Approved by: Tahira Price MD, PhD on 08/13/2023 3:33 PM PDT Station ID: [id number]
--- NOTE | 2023-08-13 15:36 | XRAY Report ---
PROCEDURE: Shoulder 2 View RT INDICATIONS: RIGHT UPPER ARM PAIN, RIGHT SHOULDER PAIN TECHNIQUE: 4 views of the shoulder were acquired. COMPARISON: None. FINDINGS: Bones: No fractures or dislocations. No suspicious bony lesions. Visualized ribs appear intact. Mi ld acromioclavicular joint and glenohumeral joint osteoarthritis. Soft tissues: No suspicious soft tissue calcifications. The visualized lungs are within normal limi ts. IMPRESSION: No fracture. No acute osseous lesion. If symptoms and/or clinical concern for pathology persists, further assessment with repeat plain film radiographs (7-10 days) or advanced imaging (CT, MR, bone scan) should be considered. Reviewed by: Tahira Price MD, PhD on 08/13/2023 3:35 PM PDT Approved by: Tahira Price MD, PhD on 08/13/2023 3:35 PM PDT Station ID: [id number]
[2023-08-13] MEDS ORDERED: iohexoL-300 100 ML VIAL IVP ONE (16:25)
--- NOTE | 2023-08-21 17:25 | CT Report ---
PROCEDURE: ABDOMEN W INDICATIONS: PANCREATIC CYST CONTRAST: 100ml omni 300 TECHNIQUE: After the administration of oral and intravenous contrast, 5 mm thick sections acquired from the diap hragms to the iliac crests. 5 mm thick coronal and sagittal reformats were acquired. For radiation dose reduction, the following was used: automated exposure control, adjustment of mA and/or kV accor ding to patient size. COMPARISON: CT enterography 02/17/2022. FINDINGS: Image quality: Good. Lung bases and heart: Unremarkable. Liver: No suspicious lesion. Gallbladder and biliary tree: Prominent gallbladder. No stones seen. No biliary ductal dilatation. Spleen: No splenomegaly. Pancreas: Cyst at the body of the pancreas adjacent to the SMV seen on prior CT 02/17/2022 is no longer present. No pancreatic ductal dilatation. No suspicious enhancement. Pancreatic parenchyma enhances uniformly. Adrenals: No adrenal nodule. Kidneys and ureters: No hydronephrosis. No renal cystic lesion which requires follow up. No solid mas s. Small nonobstructing right kidney stones. A larger stone at the inferior pole of the right kidney cindi sures 0.7 cm. Bowel and peritoneum: No bowel distension. No pathologic free fluid. Diverticulosis. Normal appendix. Lymph nodes: No central or retroperitoneal adenopathy. Vessels: No infrarenal aortic aneurysm. Bones: No aggressive osseous abnormality. Lower lumbar spine fixation hardware. Other: No significant ventral hernia. IMPRESSION: Small cyst at the body the pancreas is no longer present. No pancreatic ductal dilatation or suspicious enhancement. Reviewed by: Jerald Caldwell MD on 08/21/2023 5:23 PM PDT Approved by: Jerald Caldwell MD on 08/21/2023 5:23 PM PDT Station ID: [id number]
== END 2023-08-13 12:24 | disposition home or self-care (01) ==
LOC: LAB 12:23 → DI 12:24
PROVIDERS: ATTEND Nurse Practitioner
DX: Z09 Encounter for follow-up examination after completed treatment for conditions other than malignant neoplasm (principal); Z87.19 Personal history of other diseases of the digestive system; M79.621 Pain in right upper arm; M25.511 Pain in right shoulder; E87.6 Hypokalemia; D64.9 Anemia, unspecified
CPT/HCPCS: 36415; 73030; 73060; 74160; 80053; 85025; Q9967; 82565

== ENCOUNTER 2024-05-14 09:26 | Outpatient (CLI) | payer MEDICARE ==
[2024-05-14 10:40] LABS: BASOPHILS # (AUTO) 0.1 10^3/uL (0.0-0.1); EOSINOPHILS # (AUTO) 0.5 10^3/uL (0.0-0.7); EOSINOPHILS % (AUTO) 4.8 %; HCT - HEMATOCRIT 43.1 % (37.0-47.0); HGB - HEMOGLOBIN 13.8 g/dL (12.0-16.0); LYMPHOCYTES # (AUTO) 3.2 10^3/uL (1.5-3.5); LYMPHOCYTES % (AUTO) 28.7 %; MEAN CORPUSCULAR HEMOGLOBIN 28.8 pg (27.0-31.0); MEAN PLATELET VOLUME 8.3 fL (7.9-10.8); MONOCYTES # (AUTO) 0.7 10^3/uL (0.0-1.0); MONOCYTES % (AUTO) 6.4 %; NEUTROPHILS # (AUTO) 6.5 10^3/uL (1.5-6.6); NEUTROPHILS % (AUTO) 57.6 %; PLT - PLATELET COUNT 314 10^3/uL (130-450); RED BLOOD COUNT 4.79 10^6/uL (4.20-5.40); RED CELL DISTRIBUTION WIDTH 13.5 % (12.0-15.0); WHITE BLOOD COUNT 11.3 x10^3/uL (4.8-10.8)
[2024-05-14 10:53] LABS: % IRON SATURATION 20 % (20-50); ALBUMIN 4.7 g/dL (3.2-5.5); ALBUMIN/GLOBULIN RATIO 1.4 (1.0-2.2); ALKALINE PHOSPHATASE 66 IU/L (42-121); ALT ALANINE AMINOTRANSFERASE 17 IU/L (10-60); AST ASPARTATE AMINOTRANSFERASE 15 IU/L (10-42); BILIRUBIN,TOTAL 0.3 mg/dL (0.2-1.0); BUN - BLOOD UREA NITROGEN 21 mg/dL (6-20); CARBON DIOXIDE - CO2 22 mmol/L (21-32); CHLORIDE 102 mmol/L (101-111); CHOL/HDL RATIO 3.4 (<4.4); CHOLESTEROL 274 mg/dL; CREATININE 1.2 mg/dL (0.6-1.3); GFR - MDRD 44 (>89); GLUCOSE 110 mg/dL (74-104); HDL CHOLESTEROL 81 mg/dL; IRON 60 ug/dL (50-212); LDL CHOLESTEROL,CALCULATED 173 mg/dL; LDL/HDL RATIO 2.1 (<4.4); POTASSIUM 4.2 mmol/L (3.5-4.5); SODIUM 134 mmol/L (135-145); TOTAL IRON BINDING CAPACITY 302 ug/dL (250-450); TOTAL PROTEIN 8.1 g/dL (6.4-8.9); TRANSFERRIN 216 mg/dL (203-362); TRIGLYCERIDES 99 mg/dL (48-352); VLDL CHOLESTEROL 20 mg/dL
[2024-05-14 11:38] LABS: ESTIMATED AVERAGE GLUCOSE 114 mg/dL (70-100); HEMOGLOBIN A1c% 5.6 % (4.27-6.07)
--- NOTE | 2024-05-14 12:51 | DEXA Report ---
PROCEDURE: Dexa Spine and/or Hip INDICATIONS: POST MENOPAUSAL TECHNIQUE: Dual energy x-ray absorptiometry (DXA) was performed on a [facility]. Regions measur ed are the AP Spine, femoral neck, and if needed forearm. COMPARISON: DEXA 09/28/2021 FINDINGS: Lumbar Spine: Bone Mineral Density: 1.308 g/cm/cm,T score: 1.2, compared to 1.5. It is noted levels L1-L2 were cindi sured on current exam compared L1-L4 on prior. Left Femoral Neck: Bone Mineral Density: 0.836 g/cm/cm, T score: -1.5, compared to -1.2. Left Hip: Bone Mineral Density: 0.8 x 3 g/cm/cm,T score: -1.2, compared to -1.2. (T score greater or equal to -1.0: NORMAL) (T score from -1.1 to -2.4: OSTEOPENIA) (T score less than or equal to -2.5 to: OSTEOPOROSIS) Impression: By WHO criteria, this patient has osteopenia in the left femoral neck and hip, mildly progressive par ticularly in the femoral neck. Patients with diagnosis of osteoporosis or osteopenia should have regular bone mineral density assess ment. For those eligible for Medicare, routine testing is allowed once every 2 years. Testing frequ ency can be increased for patients who have rapidly progressing disease or for those who are receivin g medical therapy to restore bone mass. Reviewed by: Kayla Wright MD on 05/14/2024 12:50 PM PDT Approved by: Kayla Wright MD on 05/14/2024 12:50 PM PDT Station ID: [id number]
== END 2024-05-14 09:27 | disposition home or self-care (01) ==
LOC: DI 09:26
PROVIDERS: ATTEND Nurse Practitioner
DX: M85.89 Other specified disorders of bone density and structure, multiple sites (principal); Z78.0 Asymptomatic menopausal state; D64.9 Anemia, unspecified; E87.6 Hypokalemia; E78.5 Hyperlipidemia, unspecified; R73.01 Impaired fasting glucose; G25.81 Restless legs syndrome
CPT/HCPCS: 36415; 80053; 80061; 83036; 83540; 83721; 84466; 85025

== ENCOUNTER 2024-05-14 09:56 | Outpatient (CLI) | payer MEDICARE ==
--- NOTE | 2024-05-15 09:08 | Mammography Report ---
BILATERAL DIGITAL SCREENING MAMMOGRAM 3D/2D WITH EXAGGERATED CC: 05/14/2024 CLINICAL: Routine screening. Comparison is made to exams dated: 06/30/2021 mammogram, 11/29/2022 mammogram, and 11/03/2018 mammogra m - [facility]. There are scattered areas of fibroglandular density in both breasts (category b / 25%-50% glandular t issue). No significant masses, calcifications, or other findings are seen in either breast. There has been no significant interval change. IMPRESSION: NEGATIVE There is no mammographic evidence of malignancy. A 1 year screening mammogram is recommended. Based on the Tyrer Cuzick model (a risk assessment model) the patient's lifetime risk is 5.1% and her 10 year risk is 3.8%. According to the ACR, ACS, and NCCN guidelines, an annual breast MRI exam abel g with mammogram is recommended if the patient's lifetime risk is 20% or greater. This exam was interpreted at Station ID: [id number]. NOTE: For mammograms, a report in lay terms will be sent to the patient. Approximately 15% of breast malignancies will not be visualized mammographically. In the management of a palpable breast mass, a negative mammogram must not discourage biopsy of a clinically suspicious lesion. Electronically Signed By: Jerald francis/mina:05/14/2024 16:22:57 letter sent: No_Letter ACR BI-RADS Category 1: Negative 3341F PARENCHYMAL PATTERN: (A) - The breast(s) demonstrate(s) scattered fibroglandular densities. BI-RADS CATEGORY: (1) - 1 RECOMMENDATION: (ANNUAL) - Recommend routine annual screening mammography. [id number] 1 year screening LATERALITY: (B)
== END 2024-05-14 09:57 | disposition home or self-care (01) ==
LOC: DI 09:56
DX: Z12.31 Encounter for screening mammogram for malignant neoplasm of breast (principal); R92.323 Mammographic fibroglandular density, bilateral breasts